=== PATIENT | female | born 1950 | race Hispanic/Latino ===

== ENCOUNTER 2016-08-09 16:41 | Emergency (ER) | payer MEDICARE, MEDICAID ==
[2016-08-09 16:48] VITALS: PULSE 113; TEMP 99; O2SAT 99
[2016-08-09 17:21] VITALS: RESP 20
--- NOTE | 2016-08-09 17:23 | ED PDOC ---
HPI: SOB/CHF/COPD Time Seen by Provider: 08/09/16 16:52 Chief Complaint (Nursing): Shortness Of Breath Chief Complaint (Provider): SOB History Per: Patient History/Exam Limitations: no limitations Additional Complaint(s): patient well known to the ED for COPD presents for wheezing and cough, states weather has worsened her symptoms despite rescue inhaler. (-) chest pain, dizziness, headaches. notes she lost her nebs machine. still taking symbicort Past Medical History Vital Signs: Last Vital Signs Temp 99.0 F 08/09/16 16:46 Pulse 113 H 08/09/16 16:46 Resp 20 08/09/16 17:06 BP 96/59 L 08/09/16 20:28 Pulse Ox 99 08/09/16 20:10 - Medical History PMH: Asthma, COPD, Depression, Diabetes (steriod induced ), HTN, Hypercholesterolemia, Pneumonia Denies: Chronic Kidney Disease - Surgical History Surgical History: Appendectomy, Cholecystectomy - Family History Family History: States: Unknown Family Hx - Immunization History Hx Tetanus Toxoid Vaccination: Yes Hx Influenza Vaccination: Yes (2015) Hx Pneumococcal Vaccination: Yes - Home Medications Home Medications: Ambulatory Orders Medication Instructions Recorded Albuterol 0.083% [Albuterol 0.083% 08/10/16 Inhal Josee (2.5 mg/3 ml) UD] Home Med [Home Med] 08/10/16 predniSONE [predniSONE Tab] 08/10/16 - Allergies Allergies/Adverse Reactions: Allergies Allergy/AdvReac Type Severity Reaction Status Date / Time aspirin Allergy Severe ANAPHYLAXIS Verified 07/26/16 07:07 Penicillins Allergy ANGIOEDEMA Verified 07/26/16 07:07 Sulfa (Sulfonamide Allergy ANGIOEDEMA Verified 07/26/16 07:07 Antibiotics) vancomycin Allergy VOMITING Verified 07/26/16 07:07 Review of Systems ROS Statement: Except As Marked, All Systems Reviewed And Found Negative Constitutional: Negative for: Fever Cardiovascular: Negative for: Chest Pain, Palpitations Respiratory: Positive for: Cough, Shortness of Breath Gastrointestinal: Positive for: Abdominal Pain (hx of gastritis, ran out of protonix ), Diarrhea (2 times, loose stools ). Negative for: Melena, Hematochezia Skin: Negative for: Rash Neurological: Negative for: Headache, Dizziness Physical Exam - Reviewed Nursing Documentation Reviewed: Yes Vital Signs Reviewed: Yes - Physical Exam Appears: Positive for: Well Head Exam: Positive for: NORMAL INSPECTION Skin: Positive for: Normal Color, Warm Eye Exam: Positive for: Normal appearance ENT: Positive for: Normal ENT Inspection Neck: Positive for: Normal, Painless ROM Cardiovascular/Chest: Positive for: Regular Rate, Rhythm Respiratory: Positive for: Wheezing (minimal at bases ). Negative for: Decreased Breath Sounds, Rales, Respiratory Distress Pulses-Dorsalis Pedis (L): 2+ Pulses-Dorsalis Pedis (R): 2+ Gastrointestinal/Abdominal: Positive for: Normal Exam, Soft. Negative for: Tenderness Back: Negative for: L CVA Tenderness, R CVA Tenderness Extremity: Positive for: Normal ROM, Capillary Refill (normal ). Negative for: Tenderness Lymphatic: Positive for: Normal Exam Neurologic/Psych: Positive for: Alert, Oriented, Motor/Sensory Deficits, Gait ( normal ) - Laboratory Results Result Diagrams: 08/09/16 17:00 08/09/16 17:00 - ECG ECG: Positive for: Interpreted By Me, Viewed By Fl ECG Rhythm: Positive for: Normal QRS, Normal ST Segment, Sinus Tachycardia (109) . Negative for: ST/T Changes O2 Sat by Pulse Oximetry: 99 Pulse Ox Interpretation: Normal - Radiology X-Ray: Interpreted by Me X-Ray Interpretation: No Acute Disease Medical Decision Making Medical Decision Makin65 y/o female well known to the ED for COPD with wheezing. SaO2 99% - labs - nebs - xrays - solu-medrol - re-evaluation patient after nebs feels much better, taking full deep breaths labs reviewed with no acute finding. xray viewed IMPRESSION: Poor inspiration with low lung volumes, mild crowded bronchovascular markings and mild bibasilar atelectasis. There also appears to be some very minimal linear atelectasis in the left mid lung field lung with only slight mid/end expiratory wheezing, good air excursion continues to have SaO2 99% ra. stable for discharge will discharge with RX for new nebs machine, given hx will cover with azithromycin Disposition - Clinical Impression Clinical Impression: COPD exacerbation - Patient ED Disposition Is Patient to be Admitted: No Counseled Patient/Family Regarding: Studies Performed, Diagnosis, Need For Followup, Rx Given - Disposition Disposition: Routine/Home Disposition Time: 20:07 Condition: STABLE Additional Instructions: follow up without fail return for chest pain, worsening breathing or any new concerns. Instructions: COPD (Chronic Obstructive Pulmonary Disease) (ED)
[2016-08-09 17:41] LABS: BASO % 0.4 % (0.0-2.0); EOS % 0.6 % (0.0-4.0); HEMATOCRIT 40.1 % (34.0-47.0); LYMPH # 1.2 K/uL (1.0-4.3); LYMPH % 17.5 % (20.0-40.0); MEAN CELL VOLUME 85.6 fl (81.0-99.0); MEAN CORPUSCULAR HEMOGLOBIN 27.6 pg (27.0-31.0); MEAN CORPUSCULAR HGB CONC 32.3 g/dL (33.0-37.0); MEAN PLATELET VOLUME 7.8 fl (7.2-11.7); MONO # 0.6 K/uL (0.0-0.8); MONO % 8.4 % (0.0-10.0); NEUT # 5.1 K/uL (1.8-7.0); NEUT % 73.1 % (50.0-75.0); NRBC % 0.3 % (0.0-0.0); RED CELL DISTRIBUTION WIDTH 16.7 % (11.5-14.5); WHITE BLOOD COUNT 6.9 K/uL (4.8-10.8)
[2016-08-09 17:43] LABS: VENOUS BLOOD GAS BASE EXCESS 5.2 mmol/L (0.0-2.0); VENOUS BLOOD GAS PCO2 31 mmHg (40-60); VENOUS BLOOD PH 7.55 (7.32-7.43)
[2016-08-09 17:49] LABS: ALB/GLOB RATIO 1.2 (1.0-2.1); ALKALINE PHOSPHATASE 67 U/L (38-126); ALT/SGPT 35 U/L (9-52); AST/SGOT 19 U/L (14-36); BILIRUBIN,TOTAL 0.3 mg/dl (0.2-1.3); BLOOD UREA NITROGEN 14 mg/dl (7-17); CALCIUM 9.5 mg/dL (8.4-10.2); CARBON DIOXIDE 25 mmol/L (22-30); CHLORIDE 103 mmol/L (98-107); GFR AFRICAN-AMERICAN > 60; GLUCOSE,RANDOM 157 mg/dL (65-105); MAGNESIUM 1.6 MG/DL (1.6-2.3); POTASSIUM 3.4 MMOL/L (3.6-5.0); SODIUM 137 mmol/l (132-148); TOTAL PROTEIN 7.1 G/DL (6.3-8.2)
[2016-08-09] MEDS ORDERED: Atropine-Diphenoxylate 0.025-2.5 mg Tab PO STA (18:06)
[2016-08-09 18:12] LABS: PARTIAL THROMBOPLASTIN TIME 25.7 SECONDS (23.3-32.5)
[2016-08-09] MEDS: Albuterol-Ipratrop 3 mg / 0.5 (3 ml) UD INH SCH ×3 (18:14→18:44)
[2016-08-09 20:29] VITALS: BP 96/59
--- NOTE | 2016-08-10 07:59 | CARD ---
APPROVED REPORT EKG Measurement Heart [id number] <Conclusion> Sinus tachycardia Otherwise normal ECG
--- NOTE | 2016-08-10 10:05 | RAD ---
HISTORY: cough, wheezing COMPARISON: Comparison chest dated 07/26/2016 TECHNIQUE: Chest PA and lateral FINDINGS: LUNGS: Poor inspiration with low lung volumes, mild crowded bronchovascular markings and mild bibasilar atelectasis. There also appears to be some very minimal linear atelectasis in the left mid lung field PLEURA: No significant pleural effusion identified. No pneumothorax apparent. CARDIOVASCULAR: Normal. OSSEOUS STRUCTURES: No significant abnormalities. VISUALIZED UPPER ABDOMEN: Normal. OTHER FINDINGS: None. IMPRESSION: Poor inspiration with low lung volumes, mild crowded bronchovascular markings and mild bibasilar atelectasis. There also appears to be some very minimal linear atelectasis in the left mid lung field
== END 2016-08-09 20:38 | disposition home or self-care (01) ==
LOC: H.ER 16:41
DX: J44.1 Chronic obstructive pulmonary disease with (acute) exacerbation (principal); R06.2 Wheezing; R05 Cough
CPT/HCPCS: 71020; 80053; 82803; 83605; 83735; 83880; 84484; 85025; 85378; 85610; 85730; 93005; 96374; 99284; J2930

== ENCOUNTER 2016-09-01 12:49 | Inpatient (IN) | payer MEDICARE, MEDICAID ==
[2016-09-01] MEDS ORDERED: Albuterol-Ipratrop 3 mg / 0.5 (3 ml) UD IH STA ×2 (13:09→13:16)
--- NOTE | 2016-09-01 13:14 | ED PDOC ---
HPI: CCC, URI, Sore Throat Time Seen by Provider: 09/01/16 12:59 Chief Complaint (Nursing): Cough, Cold, Congestion History Per: Patient (Cough productive bloody sputum assoc with SOB and left sided cxhest pain since this AM. Denies fever. Denies leg pain or swelling.) Onset/Duration Of Symptoms: Days (1) Current Symptoms Are (Timing): Still Present Associated Symptoms: Cough, Sputum. denies: Fever Severity: Moderate Pain Scale Rating Of: 3 Past Medical History Vital Signs: Last Vital Signs Temp 98.5 F 09/01/16 12:53 Pulse 110 H 09/01/16 12:53 Resp 24 09/01/16 12:53 BP 132/68 09/01/16 12:53 Pulse Ox 88 L 09/01/16 13:14 - Medical History PMH: Anxiety, Asthma, COPD, Depression, Diabetes (steriod induced ), HTN, Hypercholesterolemia, Pneumonia Denies: HIV, Chronic Kidney Disease - Surgical History Surgical History: Appendectomy, Cholecystectomy - Family History Family History: States: Unknown Family Hx - Immunization History Hx Tetanus Toxoid Vaccination: Yes Hx Influenza Vaccination: Yes (2015) Hx Pneumococcal Vaccination: Yes - Home Medications Home Medications: Ambulatory Orders Medication Instructions Recorded Acetylcysteine [Mucomyst 10% 4ML] 3 ml IH RTID vishnu 08/21/16 Albuterol HFA [Ventolin HFA 90 1 puff INH RQ4 PRN #0 inhaler 08/21/16 mcg/actuation (8 g)] Albuterol/Ipratropium [Duoneb 3 3 ml INH RQ4 PRN #0 neb 08/21/16 mg/0.5 mg (3 ml) UD] Aluminum Hydroxide/Magnesium 30 ml PO Q6 PRN #0 udc 08/21/16 [Maalox Plus 30 ml] Cyclobenzaprine [Flexeril] 10 mg PO TID tab 08/21/16 Enoxaparin [Lovenox] 40 mg SC DAILY syr 08/21/16 Escitalopram [Lexapro] 20 mg PO DAILY tab 08/21/16 Fluconazole IV 100mg/50 ml NS 100 mg IV DAILY #5 ml 08/21/16 [Diflucan IV 100 mg/50 ml NS] Insulin Detemir [Levemir] 6 units SC HS vial 08/21/16 Loperamide [Imodium] 4 mg PO QID PRN #0 cap 08/21/16 Morphine [Morphine Extended 30 mg PO Q12 tabsr 08/21/16 Release Tab] Pantoprazole [Protonix EC Tab] 40 mg PO DAILY ect 08/21/16 Phenol 1.4% Topical [Phenaseptic 1 spry MT TID bottle 08/21/16 1.4% Throat Bee] amLODIPine [Norvasc] 10 mg PO DAILY tab 08/21/16 clonazePAM [Klonopin] 0.5 mg PO BID tab 08/21/16 guaiFENesin/Dextromethorphan 5 ml PO Q4 PRN #0 udc 08/21/16 [Robitussin DM] methylPREDNISolone [Solu-MEDROL] 60 mg IV Q8 #15 vial 08/21/16 - Allergies Allergies/Adverse Reactions: Allergies Allergy/AdvReac Type Severity Reaction Status Date / Time aspirin Allergy Severe ANAPHYLAXIS Verified 07/26/16 07:07 Penicillins Allergy ANGIOEDEMA Verified 07/26/16 07:07 Sulfa (Sulfonamide Allergy ANGIOEDEMA Verified 07/26/16 07:07 Antibiotics) vancomycin Allergy VOMITING Verified 07/26/16 07:07 Review of Systems ROS Statement: Except As Marked, All Systems Reviewed And Found Negative Constitutional: Negative for: Fever Cardiovascular: Positive for: Chest Pain Respiratory: Positive for: Cough, Shortness of Breath, Hemoptysis Physical Exam - Reviewed Nursing Documentation Reviewed: Yes Vital Signs Reviewed: Yes - Physical Exam Appears: Positive for: Non-toxic, No Acute Distress Head Exam: Positive for: ATRAUMATIC, NORMAL INSPECTION, NORMOCEPHALIC Skin: Positive for: Normal Color, Warm, DRY Eye Exam: Positive for: EOMI, Normal appearance, PERRL ENT: Positive for: Normal ENT Inspection Neck: Positive for: Normal, Painless ROM Cardiovascular/Chest: Positive for: Regular Rate, Rhythm Respiratory: Positive for: Rhonchi, Wheezing. Negative for: Respiratory Distress Gastrointestinal/Abdominal: Positive for: Normal Exam, Bowel Sounds, Soft Back: Positive for: Normal Inspection Extremity: Positive for: Normal ROM. Negative for: Calf Tenderness, Swelling Neurologic/Psych: Positive for: Alert, Oriented - Laboratory Results Result Diagrams: 09/01/16 13:15 09/01/16 13:15 - ECG O2 Sat by Pulse Oximetry: 88 Disposition - Clinical Impression Clinical Impression: Pneumonia, Hemoptysis - Patient ED Disposition Is Patient to be Admitted: Yes - Disposition Disposition Time: 14:54 Condition: GUARDED - Pt Status Changed To: Hospital Disposition Of: Inpatient - Admit Certification Admit to Inpatient:: After my assessment, the patient will require hospitalization for at least two midnights. This is because of the severity of symptoms shown, intensity of services needed, and/or the medical risk in this patient being treated as an outpatient. - POA Present On Arrival: None
[2016-09-01] MEDS ORDERED: Sodium Chloride 0.9% 100 ML ONE (13:24)
[2016-09-01] MEDS ORDERED: Iodixanol 320 MG/ML 100 ML BOTTLE IV ONE (13:24)
[2016-09-01 13:31] LABS: BASO # 0.2 K/uL (0.0-0.2); BASO % 0.7 % (0.0-2.0); HEMATOCRIT 31.1 % (34.0-47.0); LYMPH # 0.3 K/uL (1.0-4.3); LYMPH % 1.1 % (20.0-40.0); MEAN CELL VOLUME 83.3 fl (81.0-99.0); MEAN CORPUSCULAR HEMOGLOBIN 28.1 pg (27.0-31.0); MEAN CORPUSCULAR HGB CONC 33.7 g/dL (33.0-37.0); MEAN PLATELET VOLUME 6.9 fl (7.2-11.7); MONO # 0.3 K/uL (0.0-0.8); MONO % 1.3 % (0.0-10.0); NEUT # 22.8 K/uL (1.8-7.0); NEUT % 96.9 % (50.0-75.0); PLATELET COUNT 287 K/uL (130-400); WHITE BLOOD COUNT 23.6 K/uL (4.8-10.8)
[2016-09-01 13:38] LABS: BLOOD UREA NITROGEN 31 mg/dl (7-17); GFR AFRICAN-AMERICAN > 60; GLUCOSE,RANDOM 299 mg/dL (65-105)
[2016-09-01 13:39] LABS: ALB/GLOB RATIO 0.6 (1.0-2.1); ALKALINE PHOSPHATASE 127 U/L (38-126); ALT/SGPT 36 U/L (9-52); AST/SGOT 27 U/L (14-36); BILIRUBIN,TOTAL 0.5 mg/dl (0.2-1.3); CALCIUM 9.3 mg/dL (8.4-10.2); CARBON DIOXIDE 24 mmol/L (22-30); CHLORIDE 97 mmol/L (98-107); POTASSIUM 4.7 MMOL/L (3.6-5.0); SODIUM 135 mmol/l (132-148); TOTAL PROTEIN 7.3 G/DL (6.3-8.2)
[2016-09-01] MEDS ORDERED: Albuterol-Ipratrop 3 mg / 0.5 (3 ml) UD ONE (14:03)
--- NOTE | 2016-09-01 14:28 | CT ---
PROCEDURE: CT Chest with contrast (Pulmonary Angiogram) HISTORY: Hemoptysis. COMPARISON: None available. TECHNIQUE: Axial computed tomography images were obtained of the chest in the pulmonary arterial phase of enhancement. Coronal and sagittal reformatted images were created and reviewed. Maximum intensity projection (MIP) reconstructed images in the following planes: Axial projection only. Intravenous contrast dose: 95 cc Omnipaque 300 Mean Hounsfield unit values in the main pulmonary artery: 392.07 Radiation dose: Total exam DLP = 356.06 mGy-cm. This CT exam was performed using one or more of the following dose reduction techniques: Automated exposure control, adjustment of the mA and/or kV according to patient size, and/or use of iterative reconstruction technique. FINDINGS: PULMONARY ARTERIES: Unremarkable. No pulmonary embolism. AORTA: No acute findings. No thoracic aortic aneurysm. LUNGS: Innumerable bb pulmonary masses, nodules. Many of these, in particular those in the lower lobes are cavitary. Differential considerations include cavitary metastatic disease. Septic emboli should also be considered in the appropriate clinical setting. Infectious/inflammatory etiologies in the immunocompromised individuals would be a less likely consideration. PLEURAL SPACES: Trace partially loculated pleural effusions. HEART: No radiographic findings to suggest acute or significant cardiovascular disease. LYMPH NODES: Mediastinal and subcarinal adenopathy. BONES, CHEST WALL: Unremarkable. No fracture or destructive lesion OTHER FINDINGS: Esophageal thickening in etiology of which is uncertain. IMPRESSION: Innumerable pulmonary nodules and masses the preponderance of which in the lower lobes are both large, complex and cavitary. Neoplastic, infectious/ inflammatory etiologies are most likely. Trace loculated pleural effusions the left pleural space. Negative study for acute pulmonary embolism. COMMUNICATION OF RESULTSFindings discussed with at the time of this interpretation.Study completed . Verbal results provided . Results available in the electronic medical record . I discussed findings directly with the attending in the emergency department at 14:24. September 01, 2016.
[2016-09-01] MEDS ORDERED: GENTAMICIN IVPB STA (14:34)
[2016-09-01] MEDS ORDERED: STERILE WATER FOR INJ IVPB STA (14:34)
[2016-09-01] MEDS ORDERED: Ciprofloxacin 400mg/200ml D5W 200 ML IVPB STA (14:34)
[2016-09-01] MEDS ORDERED: NS IVPB SCH (14:45)
[2016-09-01] MEDS ORDERED: GENTAMICIN IVPB SCH (14:45)
[2016-09-01 14:47] LABS: NEUTROPHIL 94 % (42-75); TOTAL CELLS COUNTED 100
[2016-09-01 14:51] LABS: GIANT PLATELETS PRESENT; LARGE PLATELETS PRESENT
[2016-09-01 14:57] LABS: ABG ALLEN TEST YES; ARTERIAL BLOOD GAS HCO3 27.5 mmol/L (21-28); ARTERIAL BLOOD GAS PO2 65 mm/Hg (80-100)
--- NOTE | 2016-09-01 14:59 | CP.PCM.CON ---
History of Present Illness - History of Present Illness History of Present Illness: Evaluated this pt in ER for possible ICU admission. Pt see in ER, labs and meds reviewed, CT chest report reviewed, CXR film reviewed. Pt is current lying comfortably in room 13 with O2sat 85% on 2 lit, no tachypne , BP 107/67. Pt was brought to ER with cough , congestion and Chest pain. She has h/o COPD, she was given nebulizor in ER, CTA was done to r/o PE, no evidence of PE but she has multiple pulm nodule , with mets being one of the possibility. She has leukocytosis of 23 k but electrolytes, including renal function are WNL, except high serum bicarb 31, probably representing COPD, and chronic resp acidosis. Review of Systems - Constitutional Constitutional: As Per HPI - EENT Eyes: As Per HPI Ears: As Per HPI Nose/Mouth/Throat: As Per HPI - Cardiovascular Cardiovascular: As Per HPI - Respiratory Respiratory: Cough, Wheezing - Gastrointestinal Gastrointestinal: As Per HPI Past Patient History - Infectious Disease Hx of Infectious Diseases: None - Past Medical History & Family History Past Medical History?: Yes - Past Social History Smoking Status: Current Some Days Smoker - CARDIAC Hx Hypercholesterolemia: Yes Hx Hypertension: Yes - PULMONARY Hx Asthma: Yes Hx Chronic Obstructive Pulmonary Disease (COPD): Yes Hx Pneumonia: Yes - NEUROLOGICAL Hx Neurological Disorder: No - HEENT Hx HEENT Problems: Yes Other/Comment: eyeglasses - RENAL Hx Chronic Kidney Disease: No - ENDOCRINE/METABOLIC Hx Endocrine Disorders: No Hx Diabetes Mellitus Type 2: No (denies diabetes hx) - HEMATOLOGICAL/ONCOLOGICAL Hx Human Immunodeficiency Virus (HIV): No - INTEGUMENTARY Hx Dermatological Problems: No - MUSCULOSKELETAL/RHEUMATOLOGICAL Hx Musculoskeletal Disorders: No Hx Falls: No - GASTROINTESTINAL Hx Gastrointestinal Disorders: Yes Hx Diarrhea: Yes Other/Comment: peritonitis - GENITOURINARY/GYNECOLOGICAL Hx Genitourinary Disorders: No - PSYCHIATRIC Hx Anxiety: Yes Hx Depression: Yes - SURGICAL HISTORY Hx Appendectomy: Yes Hx Cholecystectomy: Yes - ANESTHESIA Hx Anesthesia: Yes Hx Anesthesia Reactions: No Hx Malignant Hyperthermia: No Meds Allergies/Adverse Reactions: Allergies Allergy/AdvReac Type Severity Reaction Status Date / Time aspirin Allergy Severe ANAPHYLAXIS Verified 07/26/16 07:07 Penicillins Allergy ANGIOEDEMA Verified 07/26/16 07:07 Sulfa (Sulfonamide Allergy ANGIOEDEMA Verified 07/26/16 07:07 Antibiotics) vancomycin Allergy VOMITING Verified 07/26/16 07:07 - Medications Medications: Current Medications Ciprofloxacin (Cipro 400mg/200ml Dsw) 200 mls @ 200 mls/hr IVPB STAT STA Stop: 09/01/16 15:33 Clindamycin Phosphate 600 mg/ (Sodium Chloride) 54 mls @ 54 mls/hr IVPB ONCE ONE Stop: 09/01/16 15:33 Gentamicin Sulfate/Sodium Chloride (Gentamicin 60mg/50ml Ns) 50 mls @ 50 mls/ hr IVPB STAT DINO Physical Exam - Constitutional Appears: Non-toxic - Eye Exam Pupil Exam: PERRL - Respiratory Exam Respiratory Exam: Rhonchi, Wheezes - Cardiovascular Exam Cardiovascular Exam: REGULAR RHYTHM Results - Vital Signs Recent Vital Signs: Last Vital Signs Temp 98.5 F 09/01/16 12:53 Pulse 110 H 09/01/16 12:53 Resp 24 09/01/16 12:53 BP 132/68 09/01/16 12:53 Pulse Ox 88 L 09/01/16 14:55 - Labs Result Diagrams: 09/01/16 13:15 09/01/16 13:15 Labs: Laboratory Results - last 24 hr 09/01/16 13:15 WBC 23.6 H RBC 3.74 L Hgb 10.5 L Hct 31.1 L MCV 83.3 D MCH 28.1 MCHC 33.7 RDW 17.0 H Plt Count 287 MPV 6.9 L Neut % (Auto) 96.9 H Lymph % (Auto) 1.1 L [place] % (Auto) 1.3 Eos % (Auto) 0.0 Baso % (Auto) 0.7 Neut # 22.8 H Lymph # 0.3 L [place] # 0.3 Eos # 0.0 Baso # 0.2 Neutrophils % (Manual) 94 H Band Neutrophils % 1 Lymphocytes % (Manual) 4 L Monocytes % (Manual) 1 Hypersegmented Polys Present Toxic Granulation Present Platelet Estimate Normal Large Platelets Present Giant Platelets Present Hypochromasia (manual) Slight Anisocytosis (manual) Slight Sodium 135 Potassium 4.7 Chloride 97 L Carbon Dioxide 24 Anion Gap 19 BUN 31 H Creatinine 0.6 L Est GFR ( Amer) > 60 Est GFR (Non-Af Amer) > 60 Random Glucose 299 H Calcium 9.3 Total Bilirubin 0.5 AST 27 ALT 36 Alkaline Phosphatase 127 H D Total Protein 7.3 Albumin 2.8 L Globulin 4.5 H Albumin/Globulin Ratio 0.6 L Assessment & Plan - Assessment and Plan (Free Text) Assessment: Pt has COPD exacerbation, with pulm nodules, malignancy is a possibility, also has DM, HTN. She is hemodynamically stable and O2 saturation during my exam was 93-95% on 2 L NC and Bp is stable, . She is admitted but doesn;t require ICU monitoring at this point , can be admitted to telemetry floor. If her status changed, can be reevaluated for ICU monitoring but doesn;t require at her current clinical condition.
[2016-09-01] MEDS ORDERED: Ciprofloxacin 400mg/200ml D5W 200 ML IVPB ONE (15:25)
--- NOTE | 2016-09-01 15:32 | RAD ---
HISTORY: Cough. COMPARISON: September 01, 2016. CT pulmonary angiogram. 08/18/2016 single-view chest FINDINGS: LUNGS: Multiple cavitary masses bilaterally left greater than right. These are acute findings and therefore metastatic disease is not likely. Accordingly most likely etiology septic emboli/ infectious etiology. PLEURA: Focal pleural thickening left roxana thorax. CARDIOVASCULAR: No radiographic findings to suggest acute or significant cardiovascular disease. OSSEOUS STRUCTURES: No significant abnormalities. VISUALIZED UPPER ABDOMEN: Normal. OTHER FINDINGS: None. IMPRESSION: Multiple, confluent masses bilaterally including several cavitary masses. These represent new/ acute findings compared to the prior chest x-ray consistent with infectious/ inflammatory etiologies.
--- NOTE | 2016-09-01 15:36 | CP.PCM.HP ---
History of Present Illness - History of Present Illness History of Present Illness: pt admitted for cough, congestion, lethargy. cxr/ct chest demonstrated masses in chest unkn if malignancy vs infectious vs unkn etiology. pt is noncompliant w / thearpies in past and w/ f/u. pt is + smoker althoguh denies currently. bw and imaing noted. all consults aware. pt opnes eyes to answer questions but is lethargic Present on Admission - Present on Admission Any Indicators Present on Admission: No Review of Systems - Constitutional Constitutional: As Per HPI, Fatigue, Lethargy - Respiratory Respiratory: As Per HPI, Cough, Dyspnea on Exertion, Chest Congestion, Excessive Mucous Production Past Patient History - Infectious Disease Hx of Infectious Diseases: None - Past Medical History & Family History Past Medical History?: Yes - Past Social History Smoking Status: Current Some Days Smoker - CARDIAC Hx Hypercholesterolemia: Yes Hx Hypertension: Yes - PULMONARY Hx Asthma: Yes Hx Chronic Obstructive Pulmonary Disease (COPD): Yes Hx Pneumonia: Yes - NEUROLOGICAL Hx Neurological Disorder: No - HEENT Hx HEENT Problems: Yes Other/Comment: eyeglasses - RENAL Hx Chronic Kidney Disease: No - ENDOCRINE/METABOLIC Hx Endocrine Disorders: No Hx Diabetes Mellitus Type 2: No (denies diabetes hx) - HEMATOLOGICAL/ONCOLOGICAL Hx Human Immunodeficiency Virus (HIV): No - INTEGUMENTARY Hx Dermatological Problems: No - MUSCULOSKELETAL/RHEUMATOLOGICAL Hx Musculoskeletal Disorders: No Hx Falls: No - GASTROINTESTINAL Hx Gastrointestinal Disorders: Yes Hx Diarrhea: Yes Other/Comment: peritonitis - GENITOURINARY/GYNECOLOGICAL Hx Genitourinary Disorders: No - PSYCHIATRIC Hx Anxiety: Yes Hx Depression: Yes - SURGICAL HISTORY Hx Appendectomy: Yes Hx Cholecystectomy: Yes - ANESTHESIA Hx Anesthesia: Yes Hx Anesthesia Reactions: No Hx Malignant Hyperthermia: No Meds Allergies/Adverse Reactions: Allergies Allergy/AdvReac Type Severity Reaction Status Date / Time aspirin Allergy Severe ANAPHYLAXIS Verified 07/26/16 07:07 Penicillins Allergy ANGIOEDEMA Verified 07/26/16 07:07 Sulfa (Sulfonamide Allergy ANGIOEDEMA Verified 07/26/16 07:07 Antibiotics) vancomycin Allergy VOMITING Verified 07/26/16 07:07 Physical Exam - Constitutional Appears: Toxic, No Acute Distress, Chronically Ill - Head Exam Head Exam: ATRAUMATIC, NORMAL INSPECTION, NORMOCEPHALIC - Eye Exam Eye Exam: EOMI, Normal appearance, PERRL Pupil Exam: NORMAL ACCOMODATION, PERRL - ENT Exam ENT Exam: Mucous Membranes Moist, Normal Exam - Neck Exam Neck exam: Positive for: Normal Inspection - Respiratory Exam Respiratory Exam: Rhonchi, NORMAL BREATHING PATTERN - Cardiovascular Exam Cardiovascular Exam: REGULAR RHYTHM, RRR, +S1, +S2 - GI/Abdominal Exam GI & Abdominal Exam: Normal Bowel Sounds, Soft. absent: Tenderness - Extremities Exam Extremities exam: Positive for: full ROM, normal capillary refill, normal inspection, pedal pulses present - Back Exam Back exam: FULL ROM, NORMAL INSPECTION - Neurological Exam Neurological exam: Alert, CN II-XII Intact, Normal Gait, Oriented x3, Reflexes Normal - Psychiatric Exam Psychiatric exam: Normal Affect, Normal Mood - Skin Skin Exam: Dry, Intact, Normal Color, Warm Results - Vital Signs Recent Vital Signs: Last Vital Signs Temp 98.5 F 09/01/16 12:53 Pulse 110 H 09/01/16 12:53 Resp 24 09/01/16 12:53 BP 132/68 09/01/16 12:53 Pulse Ox 88 L 09/01/16 14:55 - Labs Result Diagrams: 09/01/16 13:15 09/01/16 13:15 Labs: Laboratory Results - last 24 hr 09/01/16 14:53 pCO2 47 H pO2 65 L HCO3 27.5 ABG pH 7.40 ABG Total CO2 30.5 H ABG O2 Saturation 97.0 ABG Base Excess 3.5 H Rasha[place] Test Yes ABG Potassium 4.5 A-a O2 Difference 76.0 Sodium 132.0 Chloride 101.0 Glucose 296 H Lactate 1.6 FiO2 28.0 Arterial Blood Potassium 4.5 Assessment & Plan (1) Hemoptysis Assessment and Plan: zyvox, imaging noted, anbx in er given id, pulm, heme/onc consults tele admission repeat cxr ?? bx Status: Acute (2) Type 2 diabetes mellitus with hyperglycemia Assessment and Plan: levemir fsbg diet Status: Acute (3) DVT prophylaxis Assessment and Plan: scd and ae hose hold anticoag r/t hemoptysis Status: Acute Decision To Admit - Pt Status Changed To: Hospital Disposition Of: Inpatient - Admit Certification Admit to Inpatient:: After my assessment, the patient will require hospitalization for at least two midnights. This is because of the severity of symptoms shown, intensity of services needed, and/or the medical risk in this patient being treated as an outpatient. - . Bed Request Type: Telemetry Admitting Physician: Beverly Arenas
[2016-09-01] MEDS ORDERED: Clindamycin 600 MG in Sodium Chloride 0.9% 100 ML IVPB ONE (16:30)
[2016-09-01] MEDS ORDERED: Promethazine DM 12.5 mg-30 mg/10 ml Syrup PO PRN (17:16)
[2016-09-01] MEDS ORDERED: Sodium Chloride 3% for Inhalation 4 ML VIAL.NEB IH PRN (17:31)
[2016-09-01] MEDS ORDERED: Tuberculin 5 Units/0.1 ml Inj ID ONE (18:15)
[2016-09-01] MEDS ORDERED: Albuterol HFA 90 mcg/actuation (8 g) INH PRN (18:59)
[2016-09-01] MEDS ORDERED: Alum-Mag Hydrox-Simethicone Susp (30 mL) PO PRN (18:59)
[2016-09-01] MEDS ORDERED: Acetylcysteine 10% 4 ML IH SCH (20:00)
[2016-09-01] MEDS: Linezolid 600 mg in D5W 300 ml 300 ML IVPB SCH (21:44)
[2016-09-01] MEDS: Insulin Detemir 100 Units/ml Inj SC SCH (21:45)
[2016-09-02] MEDS: Albuterol-Ipratrop 3 mg / 0.5 (3 ml) UD INH PRN (01:24)
[2016-09-02] MEDS: Oxycodone/Acetaminophen 5/325 mg Tab PO PRN ×4 (01:44→16:20)
[2016-09-02 07:27] LABS: HEMATOCRIT 32.9 % (34.0-47.0); LYMPH # 0.4 K/uL (1.0-4.3); LYMPH % 2.4 % (20.0-40.0); MEAN CELL VOLUME 84.6 fl (81.0-99.0); MEAN CORPUSCULAR HGB CONC 31.8 g/dL (33.0-37.0); MEAN PLATELET VOLUME 6.9 fl (7.2-11.7); MONO # 0.3 K/uL (0.0-0.8); MONO % 1.9 % (0.0-10.0); NEUT # 16.5 K/uL (1.8-7.0); NEUT % 95.7 % (50.0-75.0); RED CELL DISTRIBUTION WIDTH 17.3 % (11.5-14.5); WHITE BLOOD COUNT 17.3 K/uL (4.8-10.8)
[2016-09-02 07:40] LABS: ALB/GLOB RATIO 0.6 (1.0-2.1); ALKALINE PHOSPHATASE 122 U/L (38-126); ALT/SGPT 27 U/L (9-52); AST/SGOT 16 U/L (14-36); BILIRUBIN,TOTAL 0.4 mg/dl (0.2-1.3); BLOOD UREA NITROGEN 25 mg/dl (7-17); CALCIUM 9.6 mg/dL (8.4-10.2); CARBON DIOXIDE 27 mmol/L (22-30); CHLORIDE 99 mmol/L (98-107); GFR AFRICAN-AMERICAN > 60; GLUCOSE,RANDOM 212 mg/dL (65-105); POTASSIUM 4.8 MMOL/L (3.6-5.0); SODIUM 141 mmol/l (132-148); TOTAL PROTEIN 7.3 G/DL (6.3-8.2)
--- NOTE | 2016-09-02 08:18 | CP.PCM.PN ---
Subjective - Date & Time of Evaluation Date of Evaluation: 09/02/16 Time of Evaluation: 08:18 - Subjective Subjective: pt overall looks better this am. more color to face and more alert. still w/ cougha nd dark sputum. no f/c, n/v/d. wbc now 17. consults appriciated. cxr in am. Objective - Vital Signs/Intake and Output Vital Signs (last 24 hours): Temp Pulse Resp BP Pulse Ox 98.1 F 91 H 20 123/79 90 L 09/02/16 04:47 09/02/16 04:47 09/02/16 04:47 09/02/16 04:47 09/02/16 04:47 - Medications Medications: Current Medications Al Hydrox/Mg Hydrox/Simethicone (Maalox Plus 30 Ml) 30 ml PO Q6 PRN PRN Reason: Indigestion / Heartburn Albuterol (Ventolin Hfa 90 Mcg/Actuation (8 G)) 1 puff INH RQ4 PRN PRN Reason: Shortness of Breath Albuterol/Ipratropium (Duoneb 3 Mg/0.5 Mg (3 Ml) Ud) 3 ml INH RQ4 PRN PRN Reason: Shortness of Breath Last Admin: 09/02/16 01:24 Dose: 3 ml Amlodipine Besylate (Norvasc) 10 mg PO DAILY [facility] Escitalopram Oxalate (Lexapro) 20 mg PO DAILY [facility] Gentamicin Sulfate/Sodium Chloride (Gentamicin 60mg/50ml Ns) 50 mls @ 50 mls/ hr IVPB STAT [facility] Linezolid (Zyvox 600mg/300ml D5w) 300 mls @ 300 mls/hr IVPB Q12 [facility] Last Admin: 09/01/16 21:44 Dose: 300 mls/hr Insulin Detemir (Levemir) 6 units SC HS [facility] Last Admin: 09/01/16 21:45 Dose: 6 units Insulin Human Regular (Humulin R) 0 units SC ACHS D[facility] PRN Reason: Protocol Oxycodone/Acetaminophen (Percocet 5/325 Mg Tab) 1 tab PO Q4 PRN PRN Reason: Pain, moderate (4-7) Stop: 09/04/16 17:17 Last Admin: 09/02/16 06:16 Dose: 1 tab Pantoprazole Sodium (Protonix Ec Tab) 40 mg PO DAILY [facility] Phenol/Menthol (Phenaseptic 1.4% Throat [place]) 1 spry MT TID DINO Promethazine HCl/Dextromethorphan (Phenergan Dm Syrup) 5 ml PO Q6 PRN PRN Reason: Cough - Labs Labs: 09/02/16 05:30 09/02/16 05:30 PT 10.3 SECONDS (9.6-11.2) 09/01/16 13:15 INR 0.99 (0.92-1.08) 09/01/16 13:15 - Constitutional Appears: Well, Non-toxic, No Acute Distress - Head Exam Head Exam: ATRAUMATIC, NORMAL INSPECTION, NORMOCEPHALIC - Eye Exam Eye Exam: EOMI, Normal appearance, PERRL Pupil Exam: NORMAL ACCOMODATION, PERRL - ENT Exam ENT Exam: Mucous Membranes Moist, Normal Exam - Neck Exam Neck Exam: Full ROM, Normal Inspection. absent: Lymphadenopathy - Respiratory Exam Respiratory Exam: Wheezes, NORMAL BREATHING PATTERN - Cardiovascular Exam Cardiovascular Exam: REGULAR RHYTHM, RRR, +S1, +S2. absent: Murmur - GI/Abdominal Exam GI & Abdominal Exam: Soft, Normal Bowel Sounds. absent: Tenderness - Extremities Exam Extremities Exam: Full ROM, Normal Capillary Refill, Normal Inspection. absent : Joint Swelling, Pedal Edema - Back Exam Back Exam: NORMAL INSPECTION - Neurological Exam Neurological Exam: Alert, Awake, CN II-XII Intact, Normal Gait, Oriented x3 - Psychiatric Exam Psychiatric exam: Normal Affect, Normal Mood - Skin Skin Exam: Dry, Intact, Normal Color, Warm Assessment and Plan (1) Hemoptysis Assessment & Plan: unkn etiology repeat cxr in am, id, pulm, heme/onc cosult, zyvox albuterol, duonebs, phenergen Status: Acute (2) Type 2 diabetes mellitus with hyperglycemia Assessment & Plan: riss, levemir, fsbg, diet Status: Acute (3) DVT prophylaxis Assessment & Plan: scd nad aehose ambulation, hold anticoag for possible bx Status: Acute
[2016-09-02] MEDS: Insulin Regular 100 units/ml SC SCH ×4 (08:30→22:21)
[2016-09-02] MEDS: Pantoprazole 40 mg EC Tab PO SCH (08:38)
[2016-09-02] MEDS: Phenol 1.4% Throat Spray MT SCH ×3 (08:38→16:10)
[2016-09-02] MEDS: Linezolid 600 mg in D5W 300 ml 300 ML IVPB SCH ×2 (08:39→21:53)
[2016-09-02] MEDS: Promethazine DM 6.25 mg-15 mg/5 ml Syrup PO PRN (08:58)
--- NOTE | 2016-09-02 12:18 | CON ---
DATE: 09/02/2016 The patient is a 65-year-old female who is well-known to me from prior admission. She was admitted [facility] and referred for pulmonary evaluation because of cough productive of blood-tinged sput um. She is not exactly sure if she was coughing up the blood or vomiting blood, but she also indicat es that she had some chest pain - left-sided, and had abdominal pain radiating to the back. PAST MEDICAL HISTORY: She has a past medical history of anxiety disorder, chronic obstructive pulmon jaylin disease, diabetes mellitus, hypertension, hyperlipidemia, and recurrent pneumonia. She was recen tly discharged from [facility] after therapy for acute exacerbation of chronic obstructive pulmonary disease and pneumonia. FAMILY HISTORY: Noncontributory. SOCIAL HISTORY: She continues to smoke cigarettes. Denies alcohol use. REVIEW OF SYSTEMS: Remarkable for shortness of breath, exercise intolerance. PHYSICAL EXAMINATION: GENERAL: The patient is alert and oriented, still short of breath on mild exertion. VITAL SIGNS: Blood pressure 113/69, pulse of 98, respiratory rate 20 per minute, O2 sat 92% on 2 lit ers nasal cannula. SKIN: Shows fair turgor. HEENT: Pupils are equal and react to light and accommodation. Mouth shows fair hygiene. NECK: JVP flat. LUNGS: Shows poor aeration with audible rales and wheezing. HEART: S1, S2. ABDOMEN: Soft with midepigastric tenderness. EXTREMITIES: Show no edema or cyanosis. CENTRAL NERVOUS SYSTEM: Grossly intact. LABORATORY DATA: Remarkable for EKG that shows sinus tachycardia, otherwise unremarkable. CT scan of the chest is remarkable for multiple pulmonary nodules and masses, mainly the lower lobes, both large and complex cavitary. Neoplastic or infectious etiologies are most likely. Trace locula susie pleural effusions, left pleural space, negative for pulmonary emboli. When compared to older x-r ays from last admission, this appears more pronounced. WBC 23.6, hemoglobin 10.5, platelet count of 287,000. Sodium 135, potassium 4.7, BUN of 31, creatini ne 0.6, glucose 299. AST 27, ALT 36. IMPRESSION: 1. This clinical condition in a patient who was recently discharged from the hospital and has hemopt ysis/hematemesis at present is more compatible with infectious etiology since when compared to past x-rays, this appears new (history of trace cavitary densities on the x-rays). This is possibly bev tible with infectious etiology. One strongly doubts malignancy, but the plan would be to monitor [facility] st x-rays and CAT scans until symptoms improve and findings start to resolve. 2. Acute exacerbation of chronic obstructive pulmonary disease, ____, noncompliance to medications. PLAN: Continue therapy as ordered, IV antibiotics, aerosolized bronchodilators, and IV steroids. Th e patient may need a gastroenterology evaluation if abdominal pain continues. We will continue to fo llow with you. Further therapy will depend on findings. Corey Davalos MD cc: [id number] TT: 09/02/2016 12:17:14 Confirmation # [id number] Dictation # [id number]
--- NOTE | 2016-09-02 15:58 | CP.PCM.CON ---
History of Present Illness - History of Present Illness History of Present Illness: 65 year old female who currently resides in a fdc with a past medical history of tobacco abuse, COPD, admitted with hemoptysis, found to have b/l pulmonary masses. The patient notes to coughing up blood clots for about 2 weeks time. Her coughing is associated with rib pain and subjective fevers. She denies nausea and vomiting. She reports to lots of sick people at the fdc. Past medical history: tobacco abuse, COPD Past surgical history: Pasrtial hysterectomy, bladder repair with mesh Family history: Mother had colon cancer Social history: Smokes 3-4 cigs daily x 35 years, denies alcohol, and illicit drug use. Allergies: Aspirin, PCN, sulfa, vancomycin Review of systems: All remaining review of systems including HEENT, cardiovascular, respiratory, gastrointestinal, genitourinary, musculoskeletal, dermatologic, neurologic, and psychiatric are negative unless mentioned in the HPI. Past Patient History - Infectious Disease Hx of Infectious Diseases: None - Past Medical History & Family History Past Medical History?: Yes - Past Social History Smoking Status: Current Some Days Smoker - CARDIAC Hx Hypercholesterolemia: Yes Hx Hypertension: Yes - PULMONARY Hx Asthma: Yes Hx Chronic Obstructive Pulmonary Disease (COPD): Yes Hx Pneumonia: Yes - NEUROLOGICAL Hx Neurological Disorder: No - HEENT Hx HEENT Problems: Yes Other/Comment: eyeglasses - RENAL Hx Chronic Kidney Disease: No - ENDOCRINE/METABOLIC Hx Endocrine Disorders: No Hx Diabetes Mellitus Type 2: No (denies diabetes hx) - HEMATOLOGICAL/ONCOLOGICAL Hx Human Immunodeficiency Virus (HIV): No - INTEGUMENTARY Hx Dermatological Problems: No - MUSCULOSKELETAL/RHEUMATOLOGICAL Hx Musculoskeletal Disorders: No Hx Falls: No - GASTROINTESTINAL Hx Gastrointestinal Disorders: Yes Hx Diarrhea: Yes Other/Comment: peritonitis - GENITOURINARY/GYNECOLOGICAL Hx Genitourinary Disorders: No - PSYCHIATRIC Hx Anxiety: Yes Hx Depression: Yes - SURGICAL HISTORY Hx Appendectomy: Yes Hx Cholecystectomy: Yes - ANESTHESIA Hx Anesthesia: Yes Hx Anesthesia Reactions: No Hx Malignant Hyperthermia: No Meds Allergies/Adverse Reactions: Allergies Allergy/AdvReac Type Severity Reaction Status Date / Time aspirin Allergy Severe ANAPHYLAXIS Verified 07/26/16 07:07 Penicillins Allergy ANGIOEDEMA Verified 07/26/16 07:07 Sulfa (Sulfonamide Allergy ANGIOEDEMA Verified 07/26/16 07:07 Antibiotics) vancomycin Allergy VOMITING Verified 07/26/16 07:07 - Medications Medications: Current Medications Al Hydrox/Mg Hydrox/Simethicone (Maalox Plus 30 Ml) 30 ml PO Q6 PRN PRN Reason: Indigestion / Heartburn Albuterol (Ventolin Hfa 90 Mcg/Actuation (8 G)) 1 puff INH RQ4 PRN PRN Reason: Shortness of Breath Albuterol/Ipratropium (Duoneb 3 Mg/0.5 Mg (3 Ml) Ud) 3 ml INH RQ4 PRN PRN Reason: Shortness of Breath Last Admin: 09/02/16 01:24 Dose: 3 ml Amlodipine Besylate (Norvasc) 10 mg PO DAILY [facility] Last Admin: 09/02/16 08:37 Dose: 10 mg Escitalopram Oxalate (Lexapro) 20 mg PO DAILY [facility] Last Admin: 09/02/16 10:00 Dose: 20 mg Linezolid (Zyvox 600mg/300ml D5w) 300 mls @ 300 mls/hr IVPB Q12 [facility] Last Admin: 09/02/16 08:39 Dose: 300 mls/hr Insulin Detemir (Levemir) 6 units SC HS [facility] Last Admin: 09/01/16 21:45 Dose: 6 units Insulin Human Regular (Humulin R) 0 units SC ACHS [facility] PRN Reason: Protocol Last Admin: 09/02/16 12:30 Dose: 8 unit Oxycodone/Acetaminophen (Percocet 5/325 Mg Tab) 1 tab PO Q4 PRN PRN Reason: Pain, moderate (4-7) Stop: 09/04/16 17:17 Last Admin: 09/02/16 10:28 Dose: 1 tab Pantoprazole Sodium (Protonix Ec Tab) 40 mg PO DAILY [facility] Last Admin: 09/02/16 08:38 Dose: 40 mg Phenol/Menthol (Phenaseptic 1.4% Throat [place]) 1 spry MT TID [facility] Last Admin: 09/02/16 12:43 Dose: 1 spr Promethazine HCl/Dextromethorphan (Phenergan Dm Syrup) 5 ml PO Q6 PRN PRN Reason: Cough Last Admin: 09/02/16 08:58 Dose: 5 ml Physical Exam - Head Exam Head Exam: ATRAUMATIC - Eye Exam Eye Exam: Normal appearance - ENT Exam ENT Exam: Mucous Membranes Dry - Respiratory Exam Respiratory Exam: Decreased Breath Sounds - Cardiovascular Exam Cardiovascular Exam: +S1, +S2 - GI/Abdominal Exam GI & Abdominal Exam: Normal Bowel Sounds - Extremities Exam Extremities exam: Positive for: normal inspection - Neurological Exam Neurological exam: Oriented x3 - Psychiatric Exam Psychiatric exam: Normal Affect, Normal Mood - Skin Skin Exam: Warm Results - Vital Signs Recent Vital Signs: Last Vital Signs Temp 99.1 F 09/02/16 15:42 Pulse 105 H 09/02/16 15:42 Resp 20 09/02/16 15:42 BP 121/66 09/02/16 15:42 Pulse Ox 94 L 09/02/16 15:42 - Labs Result Diagrams: 09/02/16 05:30 09/02/16 05:30 Labs: Laboratory Results - last 24 hr 09/01/16 09/01/16 09/02/16 15:50 21:32 05:30 WBC 17.3 H RBC 3.89 Hgb 10.5 L Hct 32.9 L MCV 84.6 MCH 27.0 MCHC 31.8 L RDW 17.3 H Plt Count 292 MPV 6.9 L Neut % (Auto) 95.7 H Lymph % (Auto) 2.4 L Haakon % (Auto) 1.9 Eos % (Auto) 0.0 Baso % (Auto) 0.0 Neut # 16.5 H Lymph # 0.4 L Haakon # 0.3 Eos # 0.0 Baso # 0.0 Total Counted Cancelled Neutrophils % (Manual) Cancelled Band Neutrophils % Cancelled Lymphocytes % (Manual) Cancelled Reactive Lymphs % Cancelled Monocytes % (Manual) Cancelled Eosinophils % (Manual) Cancelled Basophils % (Manual) Cancelled Metamyelocytes % Cancelled Myelocytes % Cancelled Promyelocytes % Cancelled Blast Cells % Cancelled Plasma Cell % (Manual) Cancelled Nucleated RBC % Cancelled Hypersegmented Polys Cancelled Smudge Cells Cancelled Toxic Granulation Cancelled Dohle Bodies Cancelled Bekah Rods Cancelled Platelet Estimate Cancelled Plt Clumps, EDTA Cancelled Large Platelets Cancelled Giant Platelets Cancelled RBC Morphology Cancelled Polychromasia Cancelled Hypochromasia (manual) Cancelled Poikilocytosis (manual Cancelled Basophilic Stippling Cancelled Anisocytosis (manual) Cancelled Microcytosis (manual) Cancelled Macrocytosis (manual) Cancelled Spherocytes Cancelled Sickle Cells Cancelled Target Cells Cancelled Tear Drop Cells Cancelled Ovalocytes Cancelled Stomatocytes Cancelled Helmet Cells Cancelled Steve-Plumwood Bodies Cancelled Richardson Cells Cancelled Acanthocytes (Spur) Cancelled Rouleaux Cancelled Schistocytes Cancelled Sodium 141 Potassium 4.8 Chloride 99 Carbon Dioxide 27 Anion Gap 20 BUN 25 H Creatinine 0.6 L Est GFR ( Amer) > 60 Est GFR (Non-Af Amer) > 60 POC Glucose (mg/dL) 302 H Random Glucose 212 H Calcium 9.6 Total Bilirubin 0.4 AST 16 ALT 27 Alkaline Phosphatase 122 Total Protein 7.3 Albumin 2.8 L Globulin 4.5 H Albumin/Globulin Ratio 0.6 L Influenza Typ A,B (EIA) Negative for flu a/b 09/02/16 05:52 WBC RBC Hgb Hct MCV MCH MCHC RDW Plt Count MPV Neut % (Auto) Lymph % (Auto) Haakon % (Auto) Eos % (Auto) Baso % (Auto) Neut # Lymph # Haakon # Eos # Baso # Total Counted Neutrophils % (Manual) Band Neutrophils % Lymphocytes % (Manual) Reactive Lymphs % Monocytes % (Manual) Eosinophils % (Manual) Basophils % (Manual) Metamyelocytes % Myelocytes % Promyelocytes % Blast Cells % Plasma Cell % (Manual) Nucleated RBC % Hypersegmented Polys Smudge Cells Toxic Granulation Dohle Bodies Bekah Rods Platelet Estimate Plt Clumps, EDTA Large Platelets Giant Platelets RBC Morphology Polychromasia Hypochromasia (manual) Poikilocytosis (manual Basophilic Stippling Anisocytosis (manual) Microcytosis (manual) Macrocytosis (manual) Spherocytes Sickle Cells Target Cells Tear Drop Cells Ovalocytes Stomatocytes Helmet Cells Steve-Plumwood Bodies [place] Cells Acanthocytes (Spur) Rouleaux Schistocytes Sodium Potassium Chloride Carbon Dioxide Anion Gap BUN Creatinine Est GFR ( Amer) Est GFR (Non-Af Amer) POC Glucose (mg/dL) 237 H Random Glucose Calcium Total Bilirubin AST ALT Alkaline Phosphatase Total Protein Albumin Globulin Albumin/Globulin Ratio Influenza Typ A,B (EIA) Assessment & Plan (1) Multiple pulmonary nodules Assessment and Plan: infectious vs malignant etiology given prior recent imaging not suggestive of these nodule, infection more likely will need repeat imaging in the future post infectious treatment to follow may need biopsy if increase in size post infectious treatment Status: Acute (2) Leukocytosis Assessment and Plan: improving with antibiotics Status: Acute (3) Anemia Assessment and Plan: will check ferritin, retic count, b12, folate to further characterize Status: Acute (4) Elevated serum globulin level Assessment and Plan: will check for monoclonal protein Thank you for this interesting consult. Status: Acute
--- NOTE | 2016-09-02 20:58 | CARD ---
APPROVED REPORT EKG Measurement Heart [id number] HI [id number] <Conclusion> Sinus tachycardia Otherwise normal ECG
[2016-09-02] MEDS: Insulin Detemir 100 Units/ml Inj SC SCH (21:53)
[2016-09-03 05:08] LABS: ALB/GLOB RATIO 0.6 (1.0-2.1); ALKALINE PHOSPHATASE 113 U/L (38-126); ALT/SGPT 29 U/L (9-52); AST/SGOT 24 U/L (14-36); BILIRUBIN,TOTAL 0.5 mg/dl (0.2-1.3); BLOOD UREA NITROGEN 15 mg/dl (7-17); CALCIUM 8.9 mg/dL (8.4-10.2); CARBON DIOXIDE 32 mmol/L (22-30); CHLORIDE 96 mmol/L (98-107); GFR AFRICAN-AMERICAN > 60; GLUCOSE,RANDOM 147 mg/dL (65-105); POTASSIUM 4.3 MMOL/L (3.6-5.0); SODIUM 137 mmol/l (132-148); TOTAL PROTEIN 6.9 G/DL (6.3-8.2)
[2016-09-03 05:10] LABS: BASO % 0.2 % (0.0-2.0); HEMATOCRIT 30.7 % (34.0-47.0); LYMPH # 0.6 K/uL (1.0-4.3); LYMPH % 4.7 % (20.0-40.0); MEAN CELL VOLUME 83.7 fl (81.0-99.0); MEAN CORPUSCULAR HEMOGLOBIN 27.4 pg (27.0-31.0); MEAN CORPUSCULAR HGB CONC 32.7 g/dL (33.0-37.0); MEAN PLATELET VOLUME 6.7 fl (7.2-11.7); MONO # 0.3 K/uL (0.0-0.8); MONO % 2.5 % (0.0-10.0); NEUT # 11.4 K/uL (1.8-7.0); NEUT % 92.6 % (50.0-75.0); RED CELL DISTRIBUTION WIDTH 16.9 % (11.5-14.5); WHITE BLOOD COUNT 12.3 K/uL (4.8-10.8)
--- NOTE | 2016-09-03 07:21 | CP.PCM.PN ---
Subjective - Date & Time of Evaluation Date of Evaluation: 09/03/16 Time of Evaluation: 07:20 - Subjective Subjective: doing well, c/o left flank pain pending am cxr, am labs noted consults appriciated Objective - Vital Signs/Intake and Output Vital Signs (last 24 hours): Temp Pulse Resp BP Pulse Ox 97.9 F 96 H 16 143/72 90 L 09/03/16 05:14 09/03/16 05:14 09/03/16 05:14 09/03/16 05:14 09/03/16 05:14 - Medications Medications: Current Medications Al Hydrox/Mg Hydrox/Simethicone (Maalox Plus 30 Ml) 30 ml PO Q6 PRN PRN Reason: Indigestion / Heartburn Albuterol (Ventolin Hfa 90 Mcg/Actuation (8 G)) 1 puff INH RQ4 PRN PRN Reason: Shortness of Breath Albuterol/Ipratropium (Duoneb 3 Mg/0.5 Mg (3 Ml) Ud) 3 ml INH RQ4 PRN PRN Reason: Shortness of Breath Last Admin: 09/02/16 01:24 Dose: 3 ml Amlodipine Besylate (Norvasc) 10 mg PO DAILY [facility] Last Admin: 09/02/16 08:37 Dose: 10 mg Escitalopram Oxalate (Lexapro) 20 mg PO DAILY [facility] Last Admin: 09/02/16 10:00 Dose: 20 mg Linezolid (Zyvox 600mg/300ml D5w) 300 mls @ 300 mls/hr IVPB Q12 [facility] Last Admin: 09/02/16 21:53 Dose: 300 mls/hr Insulin Detemir (Levemir) 6 units SC HS [facility] Last Admin: 09/02/16 21:53 Dose: 6 units Insulin Human Regular (Humulin R) 0 units SC ACHS [facility] PRN Reason: Protocol Last Admin: 09/02/16 22:21 Dose: Not Given Oxycodone/Acetaminophen (Percocet 5/325 Mg Tab) 1 tab PO Q4 PRN PRN Reason: Pain, moderate (4-7) Stop: 09/04/16 17:17 Last Admin: 09/02/16 16:20 Dose: 1 tab Pantoprazole Sodium (Protonix Ec Tab) 40 mg PO DAILY [facility] Last Admin: 09/02/16 08:38 Dose: 40 mg Phenol/Menthol (Phenaseptic 1.4% Throat [place]) 1 spry MT TID [facility] Last Admin: 09/02/16 16:10 Dose: 1 spr Promethazine HCl/Dextromethorphan (Phenergan Dm Syrup) 5 ml PO Q6 PRN PRN Reason: Cough Last Admin: 09/02/16 08:58 Dose: 5 ml - Labs Labs: 09/03/16 04:00 09/03/16 04:00 PT 10.3 SECONDS (9.6-11.2) 09/01/16 13:15 INR 0.99 (0.92-1.08) 09/01/16 13:15 - Constitutional Appears: Well, Non-toxic, No Acute Distress - Head Exam Head Exam: ATRAUMATIC, NORMAL INSPECTION, NORMOCEPHALIC - Eye Exam Eye Exam: EOMI, Normal appearance, PERRL Pupil Exam: NORMAL ACCOMODATION, PERRL - ENT Exam ENT Exam: Mucous Membranes Moist, Normal Exam - Neck Exam Neck Exam: Full ROM, Normal Inspection. absent: Lymphadenopathy - Respiratory Exam Respiratory Exam: Rhonchi, Wheezes, NORMAL BREATHING PATTERN - Cardiovascular Exam Cardiovascular Exam: REGULAR RHYTHM, RRR, +S1, +S2. absent: Murmur - GI/Abdominal Exam GI & Abdominal Exam: Soft, Normal Bowel Sounds. absent: Tenderness - Extremities Exam Extremities Exam: Full ROM, Normal Capillary Refill, Normal Inspection. absent : Joint Swelling, Pedal Edema - Back Exam Back Exam: NORMAL INSPECTION - Neurological Exam Neurological Exam: Alert, Awake, CN II-XII Intact, Normal Gait, Oriented x3 - Psychiatric Exam Psychiatric exam: Normal Affect, Normal Mood - Skin Skin Exam: Dry, Intact, Normal Color, Warm Assessment and Plan (1) Hemoptysis Status: Acute (2) Type 2 diabetes mellitus with hyperglycemia Status: Acute (3) DVT prophylaxis Status: Acute (4) Left flank pain Status: Acute - Assessment and Plan (Free Text) Assessment: (1) Hemoptysis Assessment & Plan: unkn etiology repeat cxr today, id, pulm, heme/onc cosult, zyvox albuterol, duonebs, phenergen ?? robles for anbx, pt/ot Status: Acute (2) Type 2 diabetes mellitus with hyperglycemia Assessment & Plan: riss, levemir, fsbg, diet Status: Acute (3) DVT prophylaxis Assessment & Plan: scd nad aehose ambulation, hold anticoag for possible bx Status: Acute 4-left flank pain-?? r/t chronic pain vs pulm infection cxr, pain control, anbx
[2016-09-03] MEDS: Insulin Regular 100 units/ml SC SCH ×4 (08:21→21:57)
[2016-09-03] MEDS: Pantoprazole 40 mg EC Tab PO SCH (08:23)
[2016-09-03] MEDS: Phenol 1.4% Throat Spray MT SCH ×3 (08:23→16:34)
[2016-09-03] MEDS: Linezolid 600 mg in D5W 300 ml 300 ML IVPB SCH ×2 (08:29→21:27)
--- NOTE | 2016-09-03 09:15 | CP.PCM.PN ---
Subjective - Date & Time of Evaluation Date of Evaluation: 09/03/16 Time of Evaluation: 09:15 - Subjective Subjective: STILL C/O SOB ON MILD EXERTION COUGHING BUT NO BLOOD NOTED Objective - Vital Signs/Intake and Output Vital Signs (last 24 hours): Temp Pulse Resp BP Pulse Ox 97.9 F 89 16 150/80 90 L 09/03/16 05:14 09/03/16 08:22 09/03/16 05:14 09/03/16 08:22 09/03/16 05:14 - Medications Medications: Current Medications Al Hydrox/Mg Hydrox/Simethicone (Maalox Plus 30 Ml) 30 ml PO Q6 PRN PRN Reason: Indigestion / Heartburn Albuterol (Ventolin Hfa 90 Mcg/Actuation (8 G)) 1 puff INH RQ4 PRN PRN Reason: Shortness of Breath Albuterol/Ipratropium (Duoneb 3 Mg/0.5 Mg (3 Ml) Ud) 3 ml INH RQ4 PRN PRN Reason: Shortness of Breath Last Admin: 09/02/16 01:24 Dose: 3 ml Amlodipine Besylate (Norvasc) 10 mg PO DAILY [facility] Last Admin: 09/03/16 08:22 Dose: 10 mg Escitalopram Oxalate (Lexapro) 20 mg PO DAILY [facility] Last Admin: 09/03/16 08:22 Dose: 20 mg Linezolid (Zyvox 600mg/300ml D5w) 300 mls @ 300 mls/hr IVPB Q12 [facility] Last Admin: 09/03/16 08:29 Dose: 300 mls/hr Insulin Detemir (Levemir) 6 units SC HS [facility] Last Admin: 09/02/16 21:53 Dose: 6 units Insulin Human Regular (Humulin R) 0 units SC ACHS [facility] PRN Reason: Protocol Last Admin: 09/03/16 08:21 Dose: Not Given Oxycodone/Acetaminophen (Percocet 5/325 Mg Tab) 1 tab PO Q4 PRN PRN Reason: Pain, moderate (4-7) Stop: 09/04/16 17:17 Last Admin: 09/02/16 16:20 Dose: 1 tab Pantoprazole Sodium (Protonix Ec Tab) 40 mg PO DAILY [facility] Last Admin: 09/03/16 08:23 Dose: 40 mg Phenol/Menthol (Phenaseptic 1.4% Throat [place]) 1 spry MT TID DINO Last Admin: 09/03/16 08:23 Dose: 1 spr Promethazine HCl/Dextromethorphan (Phenergan Dm Syrup) 5 ml PO Q6 PRN PRN Reason: Cough Last Admin: 09/02/16 08:58 Dose: 5 ml - Labs Labs: 09/03/16 04:00 09/03/16 04:00 PT 10.3 SECONDS (9.6-11.2) 09/01/16 13:15 INR 0.99 (0.92-1.08) 09/01/16 13:15 - Constitutional Appears: Chronically Ill - Head Exam Head Exam: ATRAUMATIC, NORMAL INSPECTION, NORMOCEPHALIC - Eye Exam Eye Exam: EOMI, Normal appearance, PERRL Pupil Exam: NORMAL ACCOMODATION, PERRL - ENT Exam ENT Exam: Mucous Membranes Moist, Normal Exam - Neck Exam Neck Exam: Full ROM, Normal Inspection. absent: Lymphadenopathy - Respiratory Exam Respiratory Exam: Decreased Breath Sounds, Prolonged Expiratory Phase, Rales, Wheezes - Cardiovascular Exam Cardiovascular Exam: REGULAR RHYTHM, +S1, +S2. absent: Murmur - GI/Abdominal Exam GI & Abdominal Exam: Soft, Normal Bowel Sounds. absent: Tenderness - Rectal Exam Rectal Exam: NORMAL INSPECTION - Extremities Exam Extremities Exam: Full ROM, Normal Capillary Refill, Normal Inspection. absent : Joint Swelling, Pedal Edema - Back Exam Back Exam: NORMAL INSPECTION - Neurological Exam Neurological Exam: Alert, Awake, CN II-XII Intact, Normal Gait, Oriented x3 - Psychiatric Exam Psychiatric exam: Normal Affect, Normal Mood - Skin Skin Exam: Dry, Intact, Normal Color, Warm Assessment and Plan - Assessment and Plan (Free Text) Assessment: ACUTE EXAC OF COPD PNEUMONIA HEMOPTYSIS/HEMATEMESES NON-COMPLIANCE Plan: CONTINUE PRESENT RX REPEAT CXR
[2016-09-03 11:35] LABS: FOLATE 5.8 ng/mL
--- NOTE | 2016-09-03 12:11 | CP.PCM.CON ---
History of Present Illness - History of Present Illness History of Present Illness: 65 year old female with hx of COPD, admitted with hemoptysis, found to have b/ l pulmonary masses. Past medical history: tobacco abuse, COPD Past surgical history: Pasrtial hysterectomy, bladder repair with mesh Family history: Mother had colon cancer Social history: Smokes 3-4 cigs daily x 35 years, denies alcohol, and illicit drug use. Allergies: Aspirin, PCN, sulfa, vancomycin Review of systems: All remaining review of systems including HEENT, cardiovascular, respiratory, gastrointestinal, genitourinary, musculoskeletal, dermatologic, neurologic, and psychiatric are negative unless mentioned in the HPI. Review of Systems - Constitutional Constitutional: As Per HPI - EENT Eyes: absent: As Per HPI, Blind Spots, Blurred Vision, Change in Vision, Decreased Night Vision, Diplopia, Discharge, Dry Eye, Exophthalmos, Floaters, Irritation, Itchy Eyes, Loss of Peripheral Vision, Pain, Photophobia, Requires Corrective Lenses, Sees Flashes, Spots in Vision, Tunnel Vision, Other Visual Disturbances, Loss of Vision, Other Ears: absent: As Per HPI, Decreased Hearing, Ear Discharge, Ear Pain, Tinnitus, Abnormal Hearing, Disequilibrium, Dizziness, Other Nose/Mouth/Throat: absent: As Per HPI, Epistaxis, Nasal Congestion, Nasal Discharge, Nasal Obstruction, Nasal Trauma, Nose Pain, Post Nasal Drip, Sinus Pain, Sinus Pressure, Bleeding Gums, Change in Voice, Dental Pain, Dry Mouth, Dysphagia, Halitosis, Hoarsness, Lip Swelling, Mouth Lesions, Mouth Pain, Odynophagia, Sore Throat, Throat Swelling, Tongue Swelling, Facial Pain, Neck Pain, Neck Mass, Other - Breasts Breasts: absent: As Per HPI, Change in Shape, Mass, Pain, Nipple Discharge, Nipple Inversion, Skin Changes, Swelling, Other - Cardiovascular Cardiovascular: As Per HPI - Respiratory Respiratory: As Per HPI, Cough, Hemoptysis - Gastrointestinal Gastrointestinal: absent: As Per HPI, Abdominal Pain, Belching, Bloating, Change in Bowel Habits, Change in Stool Character, Coffee Ground Emesis, Constipation, Cramping, Diarrhea, Dyspepsia, Dysphagia, Early Satiety, Excessive Flatus, Fecal Incontinence, Heartburn, Hematemesis, Hematochezia, Loose Stools, Melena, Nausea, Odynophagia, Temesmus, Vomiting, Other - Genitourinary Genitourinary: absent: As Per HPI, Change in Urinary Stream, Difficulty Urinating, Dysuria, Flank Pain, Hematuria, Pyuria, Nocturia, Urinary Incontinence, Urinary Frequency, Urinary Hesitance, Urinary Urgency, Voiding Freq/Small Amts, Freq UTI, Hx Renal/Bladder Calculi, Hx /Renal Surgery, Bladder Distension, Other - Reproductive: Female Reproductive:Female: absent: As Per HPI, Amenorrhea, Amenorrhea/ Control, Currently Menstual, Cycle <21 Days, Cycle >35 Days, Cycle Variable, Menses 1-7 Days, Menses >/= 8 Days, Menses Variable, Cycle > 4 Weeks Between, No Menses for 6 Months, Heavy Menses, Light Menses, Normal Menses, Spotting Between Cycles , S/P Hysterectomy, Menopausal, Post Menopausal, Premenarche, Abnormal Vaginal Bleeding, Dysmenorrhea, Dyspareunia, Genital Lesions, Genital Pruritis, Pelvic Pain, Prolapse Symptoms, Sexual Dysfunction, Vaginal Discharge, Vaginal Dryness , Vaginal Odor, Vaginal Pruritis, Other - Menstruation Menstruation: absent: As Per HPI, Amenorrhea, Amenorrhea/ Control, Currently Menstual, Cycle <21 Days, Cycle >35 Days, Cycle Variable, Menses 1-7 Days, Menses >/= 8 Days, Menses Variable, Cycle > 4 Weeks Between, No Menses for 6 Months, Heavy Menses, Light Menses, Normal Menses, Spotting Between Cycles , S/P Hysterectomy, Menopausal, Post Menopausal, Premenarche, Abnormal Vaginal Bleeding, Dysmenorrhea, Other - Integumentary Integumentary: absent: As Per HPI, Acne, Alopecia, Bleeding Lesions, Change in Hair, Change in Nails, Change in Pigmentation, Changing Lesions, Dry Skin, Erythema, Furuncle, Hirsutism, Lesions, New Lesions, Non-Healing Lesions, Photosensitivity, Pruritus, Rash, Skin Pain, Skin Ulcer, Sores, Striae, Swelling , Unusual Bruising, Wounds, Jaundice, Other - Neurological Neurological: absent: As Per HPI, Abnormal Gait, Abnormal Hearing, Abnormal Movements, Abnormal Speech, Behavioral Changes, Burning Sensations, Confusion, Convulsions, Disequilibrium, Dizziness, Numbness, Focal Weakness, Frequent Falls , Headaches, Lack of Coordination, Loss of Vision, Memory Loss, Paresthesias, Radicular Pain, Restless Legs, Sensory Deficit, Syncope, Tingling, Tremor, Vertigo, Weakness, Other Visual Disturbances, Other - Psychiatric Psychiatric: absent: As Per HPI, Abnormal Sleep Pattern, Anhedonia, Anxiety, Auditory Hallucinations, Behavioral Changes, Change in Appetite, Change in Libido, Confusion, Depression, Difficulty Concentrating, Hallucinations, Homicidal Ideation, Hopelessness, Irritability, Memory Loss, Mood Swings, Panic Attacks, Paranoia, Suicidal Ideation, Visual Hallucinations, Tactile Hallucinations, Other - Endocrine Endocrine: absent: As Per HPI, Change in Body Appearance, Change in Libido, Cold Intolorance, Deepening of Voice, Excessive Sweating, Fatigue, Flushing, Heat Intolorance, Increase in Ring/Shoe/Hat Size, Palpitations, Polydipsia, Polyphagia, Polyuria, Other - Hematologic/Lymphatic Hematologic: absent: As Per HPI, Easy Bleeding, Easy Bruising, Lymphadenopathy, Other Past Patient History - Infectious Disease Hx of Infectious Diseases: None - Past Medical History & Family History Past Medical History?: Yes - Past Social History Smoking Status: Current Some Days Smoker - CARDIAC Hx Hypercholesterolemia: Yes Hx Hypertension: Yes - PULMONARY Hx Asthma: Yes Hx Chronic Obstructive Pulmonary Disease (COPD): Yes Hx Pneumonia: Yes - NEUROLOGICAL Hx Neurological Disorder: No - HEENT Hx HEENT Problems: Yes Other/Comment: eyeglasses - RENAL Hx Chronic Kidney Disease: No - ENDOCRINE/METABOLIC Hx Endocrine Disorders: No Hx Diabetes Mellitus Type 2: No (denies diabetes hx) - HEMATOLOGICAL/ONCOLOGICAL Hx Human Immunodeficiency Virus (HIV): No - INTEGUMENTARY Hx Dermatological Problems: No - MUSCULOSKELETAL/RHEUMATOLOGICAL Hx Musculoskeletal Disorders: No Hx Falls: No - GASTROINTESTINAL Hx Gastrointestinal Disorders: Yes Hx Diarrhea: Yes Other/Comment: peritonitis - GENITOURINARY/GYNECOLOGICAL Hx Genitourinary Disorders: No - PSYCHIATRIC Hx Anxiety: Yes Hx Depression: Yes - SURGICAL HISTORY Hx Appendectomy: Yes Hx Cholecystectomy: Yes - ANESTHESIA Hx Anesthesia: Yes Hx Anesthesia Reactions: No Hx Malignant Hyperthermia: No Meds Allergies/Adverse Reactions: Allergies Allergy/AdvReac Type Severity Reaction Status Date / Time aspirin Allergy Severe ANAPHYLAXIS Verified 07/26/16 07:07 Penicillins Allergy ANGIOEDEMA Verified 07/26/16 07:07 Sulfa (Sulfonamide Allergy ANGIOEDEMA Verified 07/26/16 07:07 Antibiotics) vancomycin Allergy VOMITING Verified 07/26/16 07:07 - Medications Medications: Current Medications Al Hydrox/Mg Hydrox/Simethicone (Maalox Plus 30 Ml) 30 ml PO Q6 PRN PRN Reason: Indigestion / Heartburn Albuterol (Ventolin Hfa 90 Mcg/Actuation (8 G)) 1 puff INH RQ4 PRN PRN Reason: Shortness of Breath Albuterol/Ipratropium (Duoneb 3 Mg/0.5 Mg (3 Ml) Ud) 3 ml INH RQ4 PRN PRN Reason: Shortness of Breath Last Admin: 09/02/16 01:24 Dose: 3 ml Amlodipine Besylate (Norvasc) 10 mg PO DAILY [facility] Last Admin: 09/03/16 08:22 Dose: 10 mg Escitalopram Oxalate (Lexapro) 20 mg PO DAILY [facility] Last Admin: 09/03/16 08:22 Dose: 20 mg Linezolid (Zyvox 600mg/300ml D5w) 300 mls @ 300 mls/hr IVPB Q12 [facility] Last Admin: 09/03/16 08:29 Dose: 300 mls/hr Insulin Detemir (Levemir) 6 units SC HS [facility] Last Admin: 09/02/16 21:53 Dose: 6 units Insulin Human Regular (Humulin R) 0 units SC ACHS [facility] PRN Reason: Protocol Last Admin: 09/03/16 08:21 Dose: Not Given Oxycodone/Acetaminophen (Percocet 5/325 Mg Tab) 1 tab PO Q4 PRN PRN Reason: Pain, moderate (4-7) Stop: 09/04/16 17:17 Last Admin: 09/02/16 16:20 Dose: 1 tab Pantoprazole Sodium (Protonix Ec Tab) 40 mg PO DAILY [facility] Last Admin: 09/03/16 08:23 Dose: 40 mg Phenol/Menthol (Phenaseptic 1.4% Throat [place]) 1 spry MT TID [facility] Last Admin: 09/03/16 08:23 Dose: 1 spr Promethazine HCl/Dextromethorphan (Phenergan Dm Syrup) 5 ml PO Q6 PRN PRN Reason: Cough Last Admin: 09/02/16 08:58 Dose: 5 ml Physical Exam - Constitutional Appears: Non-toxic, Chronically Ill - Head Exam Head Exam: NORMOCEPHALIC - Eye Exam Eye Exam: PERRL. absent: Scleral icterus - ENT Exam ENT Exam: Mucous Membranes Dry - Neck Exam Neck exam: Negative for: Lymphadenopathy, Thyromegaly - Respiratory Exam Respiratory Exam: Decreased Breath Sounds, Prolonged Expiratory Phase, Rhonchi, Wheezes - Cardiovascular Exam Cardiovascular Exam: REGULAR RHYTHM, +S1, +S2 - GI/Abdominal Exam GI & Abdominal Exam: Diminished Bowel Sounds - Rectal Exam Rectal Exam: Deferred - Exam Exam: NORMAL INSPECTION - Extremities Exam Extremities exam: Negative for: pedal edema - Back Exam Back exam: absent: CVA tenderness (L), CVA tenderness (R) - Neurological Exam Neurological exam: Alert, CN II-XII Intact, Oriented x3, Reflexes Normal - Psychiatric Exam Psychiatric exam: Depressed - Skin Skin Exam: Dry Results - Vital Signs Recent Vital Signs: Last Vital Signs Temp 99.5 F 09/03/16 09:00 Pulse 89 09/03/16 09:00 Resp 20 09/03/16 09:00 BP 150/80 09/03/16 09:00 Pulse Ox 99 09/03/16 09:00 - Labs Result Diagrams: 09/03/16 04:00 09/03/16 04:00 Labs: Laboratory Results - last 24 hr 09/02/16 09/02/16 09/02/16 12:23 15:59 17:26 WBC RBC Hgb Hct MCV MCH MCHC RDW Plt Count MPV Neut % (Auto) Lymph % (Auto) Cole % (Auto) Eos % (Auto) Baso % (Auto) Neut # Lymph # Cole # Eos # Baso # Total Counted Neutrophils % (Manual) Band Neutrophils % Lymphocytes % (Manual) Reactive Lymphs % Monocytes % (Manual) Eosinophils % (Manual) Basophils % (Manual) Metamyelocytes % Myelocytes % Promyelocytes % Blast Cells % Plasma Cell % (Manual) Nucleated RBC % Hypersegmented Polys Smudge Cells Toxic Granulation Dohle Bodies Bekah Rods Platelet Estimate Plt Clumps, EDTA Large Platelets Giant Platelets RBC Morphology Polychromasia Hypochromasia (manual) Poikilocytosis (manual Basophilic Stippling Anisocytosis (manual) Microcytosis (manual) Macrocytosis (manual) Spherocytes Sickle Cells Target Cells Tear Drop Cells Ovalocytes Stomatocytes Helmet Cells [place] Bodies Richardson Cells Acanthocytes (Spur) Rouleaux Schistocytes Retic Count Sodium Potassium Chloride Carbon Dioxide Anion Gap BUN Creatinine Est GFR ( Amer) Est GFR (Non-Af Amer) POC Glucose (mg/dL) 384 H 270 H Random Glucose Calcium Ferritin Total Bilirubin AST ALT Alkaline Phosphatase Total Protein Albumin Globulin Albumin/Globulin Ratio Vitamin B12 Folate Urine Opiates Screen Positive H Urine Methadone Screen Negative Ur Barbiturates Screen Negative Ur Phencyclidine Scrn Negative Ur Amphetamines Screen Negative U Benzodiazepines Scrn Positive H U Oth Cocaine Metabols Negative U Cannabinoids Screen Negative 09/02/16 09/03/16 09/03/16 21:27 04:00 06:05 WBC 12.3 H RBC 3.67 L Hgb 10.1 L Hct 30.7 L MCV 83.7 MCH 27.4 MCHC 32.7 L RDW 16.9 H Plt Count 311 MPV 6.7 L Neut % (Auto) 92.6 H Lymph % (Auto) 4.7 L Cole % (Auto) 2.5 Eos % (Auto) 0.0 Baso % (Auto) 0.2 Neut # 11.4 H Lymph # 0.6 L Cole # 0.3 Eos # 0.0 Baso # 0.0 Total Counted Cancelled Neutrophils % (Manual) Cancelled Band Neutrophils % Cancelled Lymphocytes % (Manual) Cancelled Reactive Lymphs % Cancelled Monocytes % (Manual) Cancelled Eosinophils % (Manual) Cancelled Basophils % (Manual) Cancelled Metamyelocytes % Cancelled Myelocytes % Cancelled Promyelocytes % Cancelled Blast Cells % Cancelled Plasma Cell % (Manual) Cancelled Nucleated RBC % Cancelled Hypersegmented Polys Cancelled Smudge Cells Cancelled Toxic Granulation Cancelled Dohle Bodies Cancelled Bekah Rods Cancelled Platelet Estimate Cancelled Plt Clumps, EDTA Cancelled Large Platelets Cancelled Giant Platelets Cancelled RBC Morphology Cancelled Polychromasia Cancelled Hypochromasia (manual) Cancelled Poikilocytosis (manual Cancelled Basophilic Stippling Cancelled Anisocytosis (manual) Cancelled Microcytosis (manual) Cancelled Macrocytosis (manual) Cancelled Spherocytes Cancelled Sickle Cells Cancelled Target Cells Cancelled Tear Drop Cells Cancelled Ovalocytes Cancelled Stomatocytes Cancelled Helmet Cells Cancelled [place] Bodies Cancelled Richardson Cells Cancelled Acanthocytes (Spur) Cancelled Rouleaux Cancelled Schistocytes Cancelled Retic Count 1.0 Sodium 137 Potassium 4.3 Chloride 96 L Carbon Dioxide 32 H Anion Gap 13 BUN 15 Creatinine 0.5 L Est GFR ( Amer) > 60 Est GFR (Non-Af Amer) > 60 POC Glucose (mg/dL) 137 H 137 H Random Glucose 147 H Calcium 8.9 Ferritin 863.0 Total Bilirubin 0.5 AST 24 ALT 29 Alkaline Phosphatase 113 Total Protein 6.9 Albumin 2.6 L Globulin 4.3 H Albumin/Globulin Ratio 0.6 L Vitamin B12 410 Folate 5.8 Urine Opiates Screen Urine Methadone Screen Ur Barbiturates Screen Ur Phencyclidine Scrn Ur Amphetamines Screen U Benzodiazepines Scrn U Oth Cocaine Metabols U Cannabinoids Screen Assessment & Plan (1) COPD exacerbation Status: Acute (2) Hemoptysis Status: Acute (3) Multiple pulmonary nodules Status: Acute - Assessment and Plan (Free Text) Assessment: r/o maliganancy needs FOB consider isolation pending afb
[2016-09-03] MEDS: Oxycodone/Acetaminophen 5/325 mg Tab PO PRN ×3 (12:59→21:26)
--- NOTE | 2016-09-03 15:53 | RAD ---
HISTORY: abn cxr on admission COMPARISON: Chest x-ray performed 09/01/16 TECHNIQUE: Chest PA and lateral FINDINGS: LUNGS: Multiple bilateral nodular and masslike opacities several of which appear cavitary Please note that chest x-ray has limited sensitivity for the detection of pulmonary masses. PLEURA: No significant pleural effusion identified. No definite pneumothorax . CARDIOVASCULAR: The cardiomediastinal silhouette appears within normal limits of size. OSSEOUS STRUCTURES: Osseous demineralization. Degenerative changes. VISUALIZED UPPER ABDOMEN: Unremarkable. OTHER FINDINGS: None. IMPRESSION: Multiple bilateral nodular masslike opacity several of which appear cavitary. Please refer to CTA chest performed 09/01/16 for more detailed discussion. Overall appearance stable since prior study. Differential diagnosis includes infectious, inflammatory, and malignant etiologies.
[2016-09-03] MEDS: Insulin Detemir 100 Units/ml Inj SC SCH (21:56)
[2016-09-03] MEDS: Albuterol-Ipratrop 3 mg / 0.5 (3 ml) UD INH PRN (22:10)
[2016-09-04] MEDS: Insulin Regular 100 units/ml SC SCH ×4 (06:54→21:29)
[2016-09-04] MEDS: Oxycodone/Acetaminophen 5/325 mg Tab PO PRN ×2 (06:58→18:52)
--- NOTE | 2016-09-04 07:35 | CP.PCM.PN ---
Subjective - Date & Time of Evaluation Date of Evaluation: 09/04/16 Time of Evaluation: 07:35 - Subjective Subjective: no new complaints. still w/ left flank pain. no f/c, n/v/d. wbc still w/ wbc 12. case d/c w/ dr heard as pt has MRSA in sputum. per dr heard zyvox should cover MRSA. pending rest of c/s pt uses o2 prn. for robles for iv anbx Objective - Vital Signs/Intake and Output Vital Signs (last 24 hours): Temp Pulse Resp BP Pulse Ox 98.7 F 88 20 118/72 93 L 09/04/16 05:18 09/04/16 05:18 09/04/16 05:18 09/04/16 05:18 09/04/16 05:18 - Medications Medications: Current Medications Al Hydrox/Mg Hydrox/Simethicone (Maalox Plus 30 Ml) 30 ml PO Q6 PRN PRN Reason: Indigestion / Heartburn Albuterol (Ventolin Hfa 90 Mcg/Actuation (8 G)) 1 puff INH RQ4 PRN PRN Reason: Shortness of Breath Albuterol/Ipratropium (Duoneb 3 Mg/0.5 Mg (3 Ml) Ud) 3 ml INH RQ4 PRN PRN Reason: Shortness of Breath Last Admin: 09/03/16 22:10 Dose: 3 ml Amlodipine Besylate (Norvasc) 10 mg PO DAILY [facility] Last Admin: 09/03/16 08:22 Dose: 10 mg Escitalopram Oxalate (Lexapro) 20 mg PO DAILY [facility] Last Admin: 09/03/16 08:22 Dose: 20 mg Linezolid (Zyvox 600mg/300ml D5w) 300 mls @ 300 mls/hr IVPB Q12 [facility] Last Admin: 09/03/16 21:27 Dose: 300 mls/hr Insulin Detemir (Levemir) 6 units SC HS [facility] Last Admin: 09/03/16 21:56 Dose: 6 units Insulin Human Regular (Humulin R) 0 units SC ACHS [facility] PRN Reason: Protocol Last Admin: 09/04/16 06:54 Dose: 2 unit Oxycodone/Acetaminophen (Percocet 5/325 Mg Tab) 1 tab PO Q4 PRN PRN Reason: Pain, moderate (4-7) Stop: 09/04/16 17:17 Last Admin: 09/04/16 06:58 Dose: 1 tab Pantoprazole Sodium (Protonix Ec Tab) 40 mg PO DAILY [facility] Last Admin: 09/03/16 08:23 Dose: 40 mg Phenol/Menthol (Phenaseptic 1.4% Throat [place]) 1 spry MT TID [facility] Last Admin: 09/03/16 16:34 Dose: 1 spr Promethazine HCl/Dextromethorphan (Phenergan Dm Syrup) 5 ml PO Q6 PRN PRN Reason: Cough Last Admin: 09/02/16 08:58 Dose: 5 ml - Labs Labs: 09/03/16 04:00 09/03/16 04:00 PT 10.3 SECONDS (9.6-11.2) 09/01/16 13:15 INR 0.99 (0.92-1.08) 09/01/16 13:15 - Constitutional Appears: Well, Non-toxic, No Acute Distress - Head Exam Head Exam: ATRAUMATIC, NORMAL INSPECTION, NORMOCEPHALIC - Eye Exam Eye Exam: EOMI, Normal appearance, PERRL Pupil Exam: NORMAL ACCOMODATION, PERRL - ENT Exam ENT Exam: Mucous Membranes Moist, Normal Exam - Neck Exam Neck Exam: Full ROM, Normal Inspection. absent: Lymphadenopathy - Respiratory Exam Respiratory Exam: Rhonchi, Wheezes, NORMAL BREATHING PATTERN - Cardiovascular Exam Cardiovascular Exam: REGULAR RHYTHM, RRR, +S1, +S2. absent: Murmur - GI/Abdominal Exam GI & Abdominal Exam: Soft, Normal Bowel Sounds. absent: Tenderness - Extremities Exam Extremities Exam: Full ROM, Normal Capillary Refill, Normal Inspection. absent : Joint Swelling, Pedal Edema - Back Exam Back Exam: NORMAL INSPECTION - Neurological Exam Neurological Exam: Alert, Awake, CN II-XII Intact, Normal Gait, Oriented x3 - Psychiatric Exam Psychiatric exam: Normal Affect, Normal Mood - Skin Skin Exam: Dry, Intact, Normal Color, Warm Assessment and Plan (1) Hemoptysis Assessment & Plan: r/t abn cxr cont zyvox, cont consults likely robles for iv anbx trend cxr resp tx cough meds Status: Acute (2) Type 2 diabetes mellitus with hyperglycemia Assessment & Plan: cont meds, fsbg, riss, diet Status: Acute (3) DVT prophylaxis Assessment & Plan: scd and ae hose, ambulation Status: Acute (4) Left flank pain Assessment & Plan: r/t abn cxr, pain control Status: Acute (5) Pneumonia Assessment & Plan: see plan for hemoptysis less likely malignancy Status: Acute
[2016-09-04 07:46] LABS: BASO % 0.3 % (0.0-2.0); HEMATOCRIT 31.5 % (34.0-47.0); LYMPH # 0.8 K/uL (1.0-4.3); LYMPH % 6.4 % (20.0-40.0); MEAN CELL VOLUME 83.1 fl (81.0-99.0); MEAN CORPUSCULAR HEMOGLOBIN 27.3 pg (27.0-31.0); MEAN CORPUSCULAR HGB CONC 32.9 g/dL (33.0-37.0); MEAN PLATELET VOLUME 6.5 fl (7.2-11.7); MONO # 0.4 K/uL (0.0-0.8); MONO % 3.5 % (0.0-10.0); NEUT # 10.9 K/uL (1.8-7.0); NEUT % 89.8 % (50.0-75.0); NRBC % 0.1 % (0.0-0.0); WHITE BLOOD COUNT 12.2 K/uL (4.8-10.8)
[2016-09-04 07:51] LABS: ALB/GLOB RATIO 0.6 (1.0-2.1); ALKALINE PHOSPHATASE 141 U/L (38-126); ALT/SGPT 28 U/L (9-52); AST/SGOT 20 U/L (14-36); BILIRUBIN,TOTAL 0.5 mg/dl (0.2-1.3); BLOOD UREA NITROGEN 15 mg/dl (7-17); CALCIUM 8.8 mg/dL (8.4-10.2); CARBON DIOXIDE 34 mmol/L (22-30); CHLORIDE 94 mmol/L (98-107); GFR AFRICAN-AMERICAN > 60; GLUCOSE,RANDOM 206 mg/dL (65-105); POTASSIUM 4.4 MMOL/L (3.6-5.0); SODIUM 138 mmol/l (132-148); TOTAL PROTEIN 7.2 G/DL (6.3-8.2)
[2016-09-04 08:08] LABS: TOTAL PROTEIN, SERUM 6.6 g/dL (6.1-8.1)
--- NOTE | 2016-09-04 08:38 | CP.PCM.PN ---
Subjective - Date & Time of Evaluation Date of Evaluation: 09/04/16 Time of Evaluation: 08:38 - Subjective Subjective: sob improving cough less no recurrence of hemoptysis Objective - Vital Signs/Intake and Output Vital Signs (last 24 hours): Temp Pulse Resp BP Pulse Ox 98.1 F 81 20 122/69 90 L 09/04/16 08:00 09/04/16 08:00 09/04/16 08:00 09/04/16 08:00 09/04/16 08:00 - Medications Medications: Current Medications Al Hydrox/Mg Hydrox/Simethicone (Maalox Plus 30 Ml) 30 ml PO Q6 PRN PRN Reason: Indigestion / Heartburn Albuterol (Ventolin Hfa 90 Mcg/Actuation (8 G)) 1 puff INH RQ4 PRN PRN Reason: Shortness of Breath Albuterol/Ipratropium (Duoneb 3 Mg/0.5 Mg (3 Ml) Ud) 3 ml INH RQ4 PRN PRN Reason: Shortness of Breath Last Admin: 09/03/16 22:10 Dose: 3 ml Amlodipine Besylate (Norvasc) 10 mg PO DAILY [facility] Last Admin: 09/03/16 08:22 Dose: 10 mg Escitalopram Oxalate (Lexapro) 20 mg PO DAILY [facility] Last Admin: 09/03/16 08:22 Dose: 20 mg Linezolid (Zyvox 600mg/300ml D5w) 300 mls @ 300 mls/hr IVPB Q12 [facility] Last Admin: 09/03/16 21:27 Dose: 300 mls/hr Insulin Detemir (Levemir) 6 units SC HS [facility] Last Admin: 09/03/16 21:56 Dose: 6 units Insulin Human Regular (Humulin R) 0 units SC ACHS [facility] PRN Reason: Protocol Last Admin: 09/04/16 06:54 Dose: 2 unit Oxycodone/Acetaminophen (Percocet 5/325 Mg Tab) 1 tab PO Q4 PRN PRN Reason: Pain, moderate (4-7) Stop: 09/04/16 17:17 Last Admin: 09/04/16 06:58 Dose: 1 tab Pantoprazole Sodium (Protonix Ec Tab) 40 mg PO DAILY [facility] Last Admin: 09/03/16 08:23 Dose: 40 mg Phenol/Menthol (Phenaseptic 1.4% Throat [place]) 1 spry MT TID [facility] Last Admin: 09/03/16 16:34 Dose: 1 spr Promethazine HCl/Dextromethorphan (Phenergan Dm Syrup) 5 ml PO Q6 PRN PRN Reason: Cough Last Admin: 09/02/16 08:58 Dose: 5 ml - Labs Labs: 09/04/16 07:20 09/04/16 07:20 PT 10.3 SECONDS (9.6-11.2) 09/01/16 13:15 INR 0.99 (0.92-1.08) 09/01/16 13:15 - Constitutional Appears: Well - Head Exam Head Exam: ATRAUMATIC, NORMAL INSPECTION, NORMOCEPHALIC - Eye Exam Eye Exam: EOMI, Normal appearance, PERRL Pupil Exam: NORMAL ACCOMODATION, PERRL - ENT Exam ENT Exam: Mucous Membranes Moist, Normal Exam - Neck Exam Neck Exam: Full ROM, Normal Inspection. absent: Lymphadenopathy - Respiratory Exam Respiratory Exam: Decreased Breath Sounds, Rales, NORMAL BREATHING PATTERN - Cardiovascular Exam Cardiovascular Exam: REGULAR RHYTHM, +S1, +S2. absent: Murmur - GI/Abdominal Exam GI & Abdominal Exam: Soft, Normal Bowel Sounds. absent: Tenderness - Rectal Exam Rectal Exam: NORMAL INSPECTION - Extremities Exam Extremities Exam: Full ROM, Normal Capillary Refill, Normal Inspection. absent : Joint Swelling, Pedal Edema - Back Exam Back Exam: NORMAL INSPECTION - Neurological Exam Neurological Exam: Alert, Awake, CN II-XII Intact, Normal Gait, Oriented x3 - Psychiatric Exam Psychiatric exam: Normal Affect, Normal Mood - Skin Skin Exam: Dry, Intact, Normal Color, Warm Assessment and Plan - Assessment and Plan (Free Text) Assessment: copd exac ?hemoptysis pneumonia Plan: repeat cxr consider bronchoscopy with lavage if cxr findings worsen/persist
[2016-09-04] MEDS: Pantoprazole 40 mg EC Tab PO SCH (09:00)
[2016-09-04] MEDS: Linezolid 600 mg in D5W 300 ml 300 ML IVPB SCH ×2 (09:00→21:28)
[2016-09-04] MEDS: Phenol 1.4% Throat Spray MT SCH ×3 (10:00→17:06)
[2016-09-04] MEDS: Albuterol HFA 90 mcg/actuation (8 g) INH SCH ×3 (10:08→21:28)
--- NOTE | 2016-09-04 10:57 | CP.PCM.PN ---
Subjective - Date & Time of Evaluation Date of Evaluation: 09/04/16 Time of Evaluation: 09:00 - Subjective Subjective: improving await afb smears Objective - Vital Signs/Intake and Output Vital Signs (last 24 hours): Temp Pulse Resp BP Pulse Ox 98.1 F 81 20 122/69 90 L 09/04/16 08:00 09/04/16 09:00 09/04/16 08:00 09/04/16 09:00 09/04/16 08:00 - Medications Medications: Current Medications Al Hydrox/Mg Hydrox/Simethicone (Maalox Plus 30 Ml) 30 ml PO Q6 PRN PRN Reason: Indigestion / Heartburn Albuterol (Ventolin Hfa 90 Mcg/Actuation (8 G)) 1 puff INH Q6 [facility] Last Admin: 09/04/16 10:08 Dose: 1 puff Albuterol/Ipratropium (Duoneb 3 Mg/0.5 Mg (3 Ml) Ud) 3 ml INH RQ4 PRN PRN Reason: Shortness of Breath Last Admin: 09/03/16 22:10 Dose: 3 ml Amlodipine Besylate (Norvasc) 10 mg PO DAILY [facility] Last Admin: 09/04/16 09:00 Dose: 10 mg Escitalopram Oxalate (Lexapro) 20 mg PO DAILY [facility] Last Admin: 09/04/16 09:00 Dose: 20 mg Linezolid (Zyvox 600mg/300ml D5w) 300 mls @ 300 mls/hr IVPB Q12 [facility] Last Admin: 09/04/16 09:00 Dose: 300 mls/hr Insulin Detemir (Levemir) 6 units SC HS [facility] Last Admin: 09/03/16 21:56 Dose: 6 units Insulin Human Regular (Humulin R) 0 units SC ACHS [facility] PRN Reason: Protocol Last Admin: 09/04/16 06:54 Dose: 2 unit Oxycodone/Acetaminophen (Percocet 5/325 Mg Tab) 1 tab PO Q4 PRN PRN Reason: Pain, moderate (4-7) Stop: 09/04/16 17:17 Last Admin: 09/04/16 06:58 Dose: 1 tab Pantoprazole Sodium (Protonix Ec Tab) 40 mg PO DAILY [facility] Last Admin: 09/04/16 09:00 Dose: 40 mg Phenol/Menthol (Phenaseptic 1.4% Throat [place]) 1 spry MT TID [facility] Last Admin: 09/04/16 10:00 Dose: 1 spr Promethazine HCl/Dextromethorphan (Phenergan Dm Syrup) 5 ml PO Q6 PRN PRN Reason: Cough Last Admin: 09/02/16 08:58 Dose: 5 ml - Labs Labs: 09/04/16 07:20 09/04/16 07:20 PT 10.3 SECONDS (9.6-11.2) 09/01/16 13:15 INR 0.99 (0.92-1.08) 09/01/16 13:15 - Constitutional Appears: Non-toxic, Chronically Ill - Head Exam Head Exam: NORMOCEPHALIC - Eye Exam Eye Exam: absent: Scleral icterus - ENT Exam ENT Exam: Mucous Membranes Dry - Neck Exam Neck Exam: absent: Lymphadenopathy - Respiratory Exam Respiratory Exam: Decreased Breath Sounds, Rhonchi - Cardiovascular Exam Cardiovascular Exam: REGULAR RHYTHM, +S1, +S2 - GI/Abdominal Exam GI & Abdominal Exam: Distended, Soft Assessment and Plan (1) COPD exacerbation Status: Acute (2) Hemoptysis Status: Acute (3) Multiple pulmonary nodules Status: Acute
--- NOTE | 2016-09-04 12:41 | CP.PCM.PN ---
Subjective - Date & Time of Evaluation Date of Evaluation: 09/04/16 Time of Evaluation: 12:00 - Subjective Subjective: Breathing better No further hemoptysis Objective - Vital Signs/Intake and Output Vital Signs (last 24 hours): Temp Pulse Resp BP Pulse Ox 98.1 F 81 20 122/69 90 L 09/04/16 08:00 09/04/16 09:00 09/04/16 08:00 09/04/16 09:00 09/04/16 08:00 - Medications Medications: Current Medications Al Hydrox/Mg Hydrox/Simethicone (Maalox Plus 30 Ml) 30 ml PO Q6 PRN PRN Reason: Indigestion / Heartburn Albuterol (Ventolin Hfa 90 Mcg/Actuation (8 G)) 1 puff INH Q6 DINO Last Admin: 09/04/16 10:08 Dose: 1 puff Albuterol/Ipratropium (Duoneb 3 Mg/0.5 Mg (3 Ml) Ud) 3 ml INH RQ4 PRN PRN Reason: Shortness of Breath Last Admin: 09/03/16 22:10 Dose: 3 ml Amlodipine Besylate (Norvasc) 10 mg PO DAILY [facility] Last Admin: 09/04/16 09:00 Dose: 10 mg Escitalopram Oxalate (Lexapro) 20 mg PO DAILY [facility] Last Admin: 09/04/16 09:00 Dose: 20 mg Linezolid (Zyvox 600mg/300ml D5w) 300 mls @ 300 mls/hr IVPB Q12 DINO Last Admin: 09/04/16 09:00 Dose: 300 mls/hr Insulin Detemir (Levemir) 6 units SC HS [facility] Last Admin: 09/03/16 21:56 Dose: 6 units Insulin Human Regular (Humulin R) 0 units SC ACHS DINO PRN Reason: Protocol Last Admin: 09/04/16 06:54 Dose: 2 unit Oxycodone/Acetaminophen (Percocet 5/325 Mg Tab) 1 tab PO Q4 PRN PRN Reason: Pain, moderate (4-7) Stop: 09/04/16 17:17 Last Admin: 09/04/16 06:58 Dose: 1 tab Pantoprazole Sodium (Protonix Ec Tab) 40 mg PO DAILY [facility] Last Admin: 09/04/16 09:00 Dose: 40 mg Phenol/Menthol (Phenaseptic 1.4% Throat [place]) 1 spry MT TID DINO Last Admin: 09/04/16 10:00 Dose: 1 spr Promethazine HCl/Dextromethorphan (Phenergan Dm Syrup) 5 ml PO Q6 PRN PRN Reason: Cough Last Admin: 09/02/16 08:58 Dose: 5 ml - Labs Labs: 09/04/16 07:20 09/04/16 07:20 PT 10.3 SECONDS (9.6-11.2) 09/01/16 13:15 INR 0.99 (0.92-1.08) 09/01/16 13:15 - Head Exam Head Exam: ATRAUMATIC - Eye Exam Eye Exam: Normal appearance - ENT Exam ENT Exam: Mucous Membranes Dry - Respiratory Exam Respiratory Exam: NORMAL BREATHING PATTERN - Cardiovascular Exam Cardiovascular Exam: +S1, +S2 - GI/Abdominal Exam GI & Abdominal Exam: Normal Bowel Sounds - Extremities Exam Extremities Exam: Normal Inspection Assessment and Plan (1) Multiple pulmonary nodules Assessment & Plan: suspect infectious etiology repeat imaging post antibiotic treatment in 4-6 weeks Status: Acute (2) Leukocytosis Assessment & Plan: improving with antibiotics Status: Acute (3) Anemia Assessment & Plan: elevated ferritin consistent with chronic disease Status: Acute (4) Elevated serum globulin level Assessment & Plan: monoclonal protein w/u sent and pending Status: Acute
--- NOTE | 2016-09-04 13:30 | PQF PNEUMO ---
This form is a permanent part of the medical record 09/04/16 Dr. Davalos, Would you please specify the type of pneumonia if known. Admitted with productive bloody cough, sob and left sided chest pain. CT chest innumerable pulmonary nodules and masses in the lower lobes are both large, complex and cavitary. Neoplastic, infectious/inflammatory etiology are most likely. Sputum CS : MRSA. Sputum for AFB pending. Treated with Zyvox. Clarification of your documentation is requested to better reflect the severity of illness and intensity of treatment of your patient. Indicators present [x] Documented diagnosis of pneumonia [x] X-ray findings: [x] Positive Sputum cultures :MRSA [x] Cough w/ fever [x] Abnormal lungs sounds [] Poor gag reflex [] Speech consults/swallow evaluation [] Vent dependence [] Other: [] Location in the medical record that reflects the above clinical findings: [x] Treatment Provided: [x] Zyvox PHYSICIAN'S RESPONSE Based on your medical judgment of the clinical indicators outlined above, are you treating this patient for a known or suspected: [] Bacterial pneumonia Please specify organism: [] [] Aspiration pneumonia [] Community acquired pneumonia [] Ventilator associated pneumonia [] Viral pneumonia [] Other, please indicate [] If Unable to Determine, please check the box, sign and date. Present On Admission (POA) Indicator: [] Present at the time of admission [] Not present at the time of admission [] Clinically Undetermined In responding to this query, please exercise your independent professional judgment. The fact that a question is asked does not imply that any particular answer is desired or expected. Thank you for your clarification on this documentation. If you have any questions please call:[phone] * Thank you, Beatrice Claros RN CDMP MTDD
--- NOTE | 2016-09-04 13:33 | RAD ---
PROCEDURE: CHEST RADIOGRAPH, 1 VIEW HISTORY: pneumonia COMPARISON: 09/03/2016 two-view chest. 09/01/2016 CT thorax FINDINGS: LUNGS: Stable inflow 1 masses several of which are cavitary. Approximate stability accounting for differences in technique compared to prior studies. PLEURA: No pneumothorax or pleural fluid seen. CARDIOVASCULAR: No radiographic findings to suggest acute or significant cardiovascular disease. OSSEOUS STRUCTURES: No significant abnormalities. VISUALIZED UPPER ABDOMEN: Normal. OTHER FINDINGS: None. IMPRESSION: No active disease. No acute/significant interval changes.
--- NOTE | 2016-09-04 13:44 | PQF GENQUE ---
This form is a permanent part of the medical record 09/04/16 Jp Ureña APN, The ER MD has documented the following information with no mention of this diagnosis in your documentation. Please indicate in your next progress note and /or discharge summary your agreement or provide clarification that this diagnosis is not a current condition after workup. Diagnosis: SEPSIS Documented by: DR. Juliette PRICE Location: ER Admitted with sob, wheezing and productive cough with bloody sputum. Diagnoses include: Hemoptysis, COPD exacerbation, Pneumonia and multiple pulmonary nodules. Afebrile. WBC 23.6 with a left shift. lactate 1.6. BLOOD CS no growth for 48 hours. Sputum CS: MRSA. Treated with Zyvox. Clarification of your documentation is requested to better reflect the severity of illness and intensity of treatment of your patient. PHYSICIAN'S RESPONSE [ ] Sepsis ruled in [x ] Sepsis ruled out [ ] Other explanation ( please specify) Based on your medical judgment of the clinical indicators outlined above please clarify the following: [] Practitioner response [] If unable to determine, please check the box, sign and date. Present On Admission (POA) Indicator: [] Present at the time of admission [] Not present at the time of admission [] Clinically Undetermined In responding to this query, please exercise your independent professional judgment. The fact that a question is asked does not imply that any particular answer is desired or expected. Thank you for your clarification on this documentation. If you have any questions please call:[phone] * Thank you, Beatrice Claros RN, [facility]
[2016-09-04] MEDS: Albuterol-Ipratrop 3 mg / 0.5 (3 ml) UD INH PRN (15:47)
[2016-09-04] MEDS: Insulin Detemir 100 Units/ml Inj SC SCH (21:27)
[2016-09-04] MEDS: Promethazine DM 6.25 mg-15 mg/5 ml Syrup PO PRN (21:33)
[2016-09-05] MEDS: Insulin Regular 100 units/ml SC SCH ×4 (06:42→21:55)
[2016-09-05 06:47] LABS: BASO % 0.1 % (0.0-2.0); EOS % 0.1 % (0.0-4.0); LYMPH # 0.9 K/uL (1.0-4.3); LYMPH % 8.4 % (20.0-40.0); MEAN CELL VOLUME 83.3 fl (81.0-99.0); MEAN CORPUSCULAR HEMOGLOBIN 27.2 pg (27.0-31.0); MEAN CORPUSCULAR HGB CONC 32.7 g/dL (33.0-37.0); MEAN PLATELET VOLUME 6.5 fl (7.2-11.7); MONO # 0.5 K/uL (0.0-0.8); MONO % 4.2 % (0.0-10.0); NEUT # 9.5 K/uL (1.8-7.0); NEUT % 87.2 % (50.0-75.0); PLATELET COUNT 446 K/uL (130-400)
[2016-09-05 07:10] LABS: ALB/GLOB RATIO 0.6 (1.0-2.1); ALKALINE PHOSPHATASE 136 U/L (38-126); ALT/SGPT 24 U/L (9-52); AST/SGOT 16 U/L (14-36); BILIRUBIN,TOTAL 0.5 mg/dl (0.2-1.3); BLOOD UREA NITROGEN 17 mg/dl (7-17); CALCIUM 8.8 mg/dL (8.4-10.2); CARBON DIOXIDE 31 mmol/L (22-30); CHLORIDE 96 mmol/L (98-107); GFR AFRICAN-AMERICAN > 60; GLUCOSE,RANDOM 188 mg/dL (65-105); POTASSIUM 4.2 MMOL/L (3.6-5.0); SODIUM 140 mmol/l (132-148); TOTAL PROTEIN 7.6 G/DL (6.3-8.2)
--- NOTE | 2016-09-05 08:32 | CP.PCM.PN ---
Subjective - Date & Time of Evaluation Date of Evaluation: 09/05/16 Time of Evaluation: 08:32 - Subjective Subjective: doing well on contact/airbrone precautions by ID dr heard. pending afb. wbc trending down. no f/c, n/v/d no comlaints at this time. updated cxr noted. all updatd serologies and c/s noted. Objective - Vital Signs/Intake and Output Vital Signs (last 24 hours): Temp Pulse Resp BP Pulse Ox 98.8 F 94 H 20 102/68 92 L 09/05/16 00:45 09/05/16 00:45 09/05/16 00:45 09/05/16 00:45 09/05/16 00:45 - Medications Medications: Current Medications Al Hydrox/Mg Hydrox/Simethicone (Maalox Plus 30 Ml) 30 ml PO Q6 PRN PRN Reason: Indigestion / Heartburn Albuterol (Ventolin Hfa 90 Mcg/Actuation (8 G)) 1 puff INH Q6 DINO Last Admin: 09/04/16 21:28 Dose: 1 puff Albuterol/Ipratropium (Duoneb 3 Mg/0.5 Mg (3 Ml) Ud) 3 ml INH RQ4 PRN PRN Reason: Shortness of Breath Last Admin: 09/04/16 15:47 Dose: 3 ml Amlodipine Besylate (Norvasc) 10 mg PO DAILY [facility] Last Admin: 09/04/16 09:00 Dose: 10 mg Escitalopram Oxalate (Lexapro) 20 mg PO DAILY [facility] Last Admin: 09/04/16 09:00 Dose: 20 mg Linezolid (Zyvox 600mg/300ml D5w) 300 mls @ 300 mls/hr IVPB Q12 DINO Last Admin: 09/04/16 21:28 Dose: 300 mls/hr Insulin Detemir (Levemir) 6 units SC HS DINO Last Admin: 09/04/16 21:27 Dose: 6 units Insulin Human Regular (Humulin R) 0 units SC ACHS DINO PRN Reason: Protocol Last Admin: 09/05/16 06:42 Dose: 2 unit Oxycodone/Acetaminophen (Percocet 5/325 Mg Tab) 1 tab PO Q4 PRN PRN Reason: Pain, moderate (4-7) Stop: 09/07/16 18:18 Last Admin: 09/04/16 18:52 Dose: 1 tab Pantoprazole Sodium (Protonix Ec Tab) 40 mg PO DAILY [facility] Last Admin: 09/04/16 09:00 Dose: 40 mg Phenol/Menthol (Phenaseptic 1.4% Throat [place]) 1 spry MT TID [facility] Last Admin: 09/04/16 17:06 Dose: 1 spr Promethazine HCl/Dextromethorphan (Phenergan Dm Syrup) 5 ml PO Q6 PRN PRN Reason: Cough Last Admin: 09/04/16 21:33 Dose: 5 ml - Labs Labs: 09/05/16 04:45 09/05/16 04:45 PT 10.3 SECONDS (9.6-11.2) 09/01/16 13:15 INR 0.99 (0.92-1.08) 09/01/16 13:15 - Constitutional Appears: Well, Non-toxic, No Acute Distress - Head Exam Head Exam: ATRAUMATIC, NORMAL INSPECTION, NORMOCEPHALIC - Eye Exam Eye Exam: EOMI, Normal appearance, PERRL Pupil Exam: NORMAL ACCOMODATION, PERRL - ENT Exam ENT Exam: Mucous Membranes Moist, Normal Exam - Neck Exam Neck Exam: Full ROM, Normal Inspection. absent: Lymphadenopathy - Respiratory Exam Respiratory Exam: Rhonchi, Wheezes, NORMAL BREATHING PATTERN - Cardiovascular Exam Cardiovascular Exam: REGULAR RHYTHM, RRR, +S1, +S2. absent: Murmur - GI/Abdominal Exam GI & Abdominal Exam: Soft, Normal Bowel Sounds. absent: Tenderness - Extremities Exam Extremities Exam: Full ROM, Normal Capillary Refill, Normal Inspection. absent : Joint Swelling, Pedal Edema - Back Exam Back Exam: NORMAL INSPECTION - Neurological Exam Neurological Exam: Alert, Awake, CN II-XII Intact, Normal Gait, Oriented x3 - Psychiatric Exam Psychiatric exam: Normal Affect, Normal Mood - Skin Skin Exam: Dry, Intact, Normal Color, Warm Assessment and Plan (1) Hemoptysis Status: Acute (2) Type 2 diabetes mellitus with hyperglycemia Status: Acute (3) DVT prophylaxis Status: Acute (4) Left flank pain Status: Acute (5) Pneumonia Status: Acute - Assessment and Plan (Free Text) Assessment: (1) Hemoptysis Assessment & Plan: r/t abn cxr cont zyvox, cont consults likely robles for iv anbx trend cxr resp tx cough meds contact/airborne precautions pending afb ppd negative Status: Acute (2) Type 2 diabetes mellitus with hyperglycemia Assessment & Plan: cont meds, fsbg, riss, diet Status: Acute (3) DVT prophylaxis Assessment & Plan: scd and ae hose, ambulation Status: Acute (4) Left flank pain Assessment & Plan: r/t abn cxr, pain control Status: Acute (5) Pneumonia Assessment & Plan: see plan for hemoptysis less likely malignancy Status: Acute
[2016-09-05] MEDS: Linezolid 600 mg in D5W 300 ml 300 ML IVPB SCH ×2 (09:00→21:00)
[2016-09-05] MEDS: Pantoprazole 40 mg EC Tab PO SCH (09:00)
[2016-09-05] MEDS: Phenol 1.4% Throat Spray MT SCH ×3 (09:00→16:56)
[2016-09-05] MEDS: Albuterol HFA 90 mcg/actuation (8 g) INH SCH ×3 (10:11→21:59)
[2016-09-05 12:00] LABS: METAMYELOCYTE 2 % (0-0); NEUTROPHIL 77 % (42-75); PLATELET CLUMPS PRESENT; REACTIVE LYMPHOCYTES 2 % (0-0); TOTAL CELLS COUNTED 100
[2016-09-05] MEDS: Oxycodone/Acetaminophen 5/325 mg Tab PO PRN ×2 (14:05→18:11)
--- NOTE | 2016-09-05 17:22 | CP.PCM.PN ---
Subjective - Date & Time of Evaluation Date of Evaluation: 09/05/16 Time of Evaluation: 09:00 - Subjective Subjective: afebrile on Zyvox MRSA + cont rx as per dr Davalos follow CXR possible FOB Objective - Vital Signs/Intake and Output Vital Signs (last 24 hours): Temp Pulse Resp BP Pulse Ox 98.7 F 87 20 151/66 H 93 L 09/05/16 15:54 09/05/16 15:54 09/05/16 15:54 09/05/16 15:54 09/05/16 15:54 - Medications Medications: Current Medications Al Hydrox/Mg Hydrox/Simethicone (Maalox Plus 30 Ml) 30 ml PO Q6 PRN PRN Reason: Indigestion / Heartburn Albuterol (Ventolin Hfa 90 Mcg/Actuation (8 G)) 1 puff INH Q6 DINO Last Admin: 09/05/16 16:56 Dose: 1 puff Albuterol/Ipratropium (Duoneb 3 Mg/0.5 Mg (3 Ml) Ud) 3 ml INH RQ4 PRN PRN Reason: Shortness of Breath Last Admin: 09/04/16 15:47 Dose: 3 ml Amlodipine Besylate (Norvasc) 10 mg PO DAILY [facility] Last Admin: 09/05/16 09:00 Dose: 10 mg Escitalopram Oxalate (Lexapro) 20 mg PO DAILY [facility] Last Admin: 09/05/16 09:00 Dose: 20 mg Linezolid (Zyvox 600mg/300ml D5w) 300 mls @ 300 mls/hr IVPB Q12 DINO Last Admin: 09/05/16 09:00 Dose: 300 mls/hr Insulin Detemir (Levemir) 6 units SC HS [facility]INO Last Admin: 09/04/16 21:27 Dose: 6 units Insulin Human Regular (Humulin R) 0 units SC ACHS DINO PRN Reason: Protocol Last Admin: 09/05/16 16:54 Dose: Not Given Oxycodone/Acetaminophen (Percocet 5/325 Mg Tab) 1 tab PO Q4 PRN PRN Reason: Pain, moderate (4-7) Stop: 09/07/16 18:18 Last Admin: 09/05/16 14:05 Dose: 1 tab Pantoprazole Sodium (Protonix Ec Tab) 40 mg PO DAILY [facility] Last Admin: 09/05/16 09:00 Dose: 40 mg Phenol/Menthol (Phenaseptic 1.4% Throat [place]) 1 spry MT TID [facility] Last Admin: 09/05/16 16:56 Dose: 1 spr Promethazine HCl/Dextromethorphan (Phenergan Dm Syrup) 5 ml PO Q6 PRN PRN Reason: Cough Last Admin: 09/04/16 21:33 Dose: 5 ml - Labs Labs: 09/05/16 04:45 09/05/16 04:45 PT 10.3 SECONDS (9.6-11.2) 09/01/16 13:15 INR 0.99 (0.92-1.08) 09/01/16 13:15 - Constitutional Appears: Non-toxic, Chronically Ill - Head Exam Head Exam: NORMOCEPHALIC - Eye Exam Eye Exam: absent: Scleral icterus - ENT Exam ENT Exam: Mucous Membranes Dry - Neck Exam Neck Exam: absent: Lymphadenopathy - Respiratory Exam Respiratory Exam: Decreased Breath Sounds, Rhonchi - Cardiovascular Exam Cardiovascular Exam: REGULAR RHYTHM, +S1, +S2 - GI/Abdominal Exam GI & Abdominal Exam: Distended, Soft Assessment and Plan (1) COPD exacerbation Status: Acute (2) Hemoptysis Status: Acute (3) Multiple pulmonary nodules Status: Acute - Assessment and Plan (Free Text) Assessment: MRSA pneumonia
[2016-09-05] MEDS: Albuterol-Ipratrop 3 mg / 0.5 (3 ml) UD INH PRN (17:54)
[2016-09-05] MEDS: Insulin Detemir 100 Units/ml Inj SC SCH (21:57)
--- NOTE | 2016-09-06 02:03 | CP.PCM.PN ---
Subjective - Date & Time of Evaluation Date of Evaluation: 09/05/16 Time of Evaluation: 17:00 - Subjective Subjective: Feeling better Objective - Vital Signs/Intake and Output Vital Signs (last 24 hours): Temp Pulse Resp BP Pulse Ox 98.6 F 80 18 134/68 95 09/05/16 23:45 09/05/16 23:45 09/05/16 23:45 09/05/16 23:45 09/05/16 23:45 - Medications Medications: Current Medications Al Hydrox/Mg Hydrox/Simethicone (Maalox Plus 30 Ml) 30 ml PO Q6 PRN PRN Reason: Indigestion / Heartburn Albuterol (Ventolin Hfa 90 Mcg/Actuation (8 G)) 1 puff INH Q6 DINO Last Admin: 09/05/16 21:59 Dose: 1 puff Albuterol/Ipratropium (Duoneb 3 Mg/0.5 Mg (3 Ml) Ud) 3 ml INH RQ4 PRN PRN Reason: Shortness of Breath Last Admin: 09/05/16 17:54 Dose: 3 ml Amlodipine Besylate (Norvasc) 10 mg PO DAILY [facility] Last Admin: 09/05/16 09:00 Dose: 10 mg Escitalopram Oxalate (Lexapro) 20 mg PO DAILY [facility] Last Admin: 09/05/16 09:00 Dose: 20 mg Linezolid (Zyvox 600mg/300ml D5w) 300 mls @ 300 mls/hr IVPB Q12 DINO Last Admin: 09/05/16 21:00 Dose: 300 mls/hr Insulin Detemir (Levemir) 6 units SC HS [facility] Last Admin: 09/05/16 21:57 Dose: 6 units Insulin Human Regular (Humulin R) 0 units SC ACHS IDNO PRN Reason: Protocol Last Admin: 09/05/16 21:55 Dose: Not Given Oxycodone/Acetaminophen (Percocet 5/325 Mg Tab) 1 tab PO Q4 PRN PRN Reason: Pain, moderate (4-7) Stop: 09/07/16 18:18 Last Admin: 09/05/16 18:11 Dose: 1 tab Pantoprazole Sodium (Protonix Ec Tab) 40 mg PO DAILY [facility] Last Admin: 09/05/16 09:00 Dose: 40 mg Phenol/Menthol (Phenaseptic 1.4% Throat [place]) 1 spry MT TID [facility]INO Last Admin: 09/05/16 16:56 Dose: 1 spr Promethazine HCl/Dextromethorphan (Phenergan Dm Syrup) 5 ml PO Q6 PRN PRN Reason: Cough Last Admin: 09/04/16 21:33 Dose: 5 ml - Labs Labs: 09/05/16 04:45 09/05/16 04:45 PT 10.3 SECONDS (9.6-11.2) 09/01/16 13:15 INR 0.99 (0.92-1.08) 09/01/16 13:15 - Head Exam Head Exam: ATRAUMATIC - Eye Exam Eye Exam: Normal appearance - ENT Exam ENT Exam: Mucous Membranes Dry - Respiratory Exam Respiratory Exam: NORMAL BREATHING PATTERN - Cardiovascular Exam Cardiovascular Exam: +S1, +S2 - GI/Abdominal Exam GI & Abdominal Exam: Normal Bowel Sounds - Extremities Exam Extremities Exam: Pedal Edema Assessment and Plan (1) Multiple pulmonary nodules Assessment & Plan: suspect infectious etiology repeat imaging post antibiotics Status: Acute (2) Leukocytosis Assessment & Plan: improving with antibiotics. Status: Acute (3) Anemia Assessment & Plan: chronic disease Status: Acute (4) Elevated serum globulin level Assessment & Plan: monoclonal protein w/u pending Status: Acute
[2016-09-06] MEDS: Albuterol HFA 90 mcg/actuation (8 g) INH SCH ×4 (04:00→22:10)
[2016-09-06 05:34] LABS: BASO % 0.2 % (0.0-2.0); EOS % 0.1 % (0.0-4.0); HEMATOCRIT 34.8 % (34.0-47.0); LYMPH # 1.1 K/uL (1.0-4.3); LYMPH % 9.5 % (20.0-40.0); MEAN CELL VOLUME 83.6 fl (81.0-99.0); MEAN CORPUSCULAR HEMOGLOBIN 27.2 pg (27.0-31.0); MEAN CORPUSCULAR HGB CONC 32.5 g/dL (33.0-37.0); MEAN PLATELET VOLUME 6.3 fl (7.2-11.7); MONO # 0.6 K/uL (0.0-0.8); MONO % 5.1 % (0.0-10.0); NEUT # 10.2 K/uL (1.8-7.0); NEUT % 85.1 % (50.0-75.0); RED CELL DISTRIBUTION WIDTH 17.7 % (11.5-14.5)
[2016-09-06 05:50] LABS: ALB/GLOB RATIO 0.6 (1.0-2.1); ALKALINE PHOSPHATASE 175 U/L (38-126); ALT/SGPT 32 U/L (9-52); AST/SGOT 28 U/L (14-36); BILIRUBIN,TOTAL 0.6 mg/dl (0.2-1.3); BLOOD UREA NITROGEN 18 mg/dl (7-17); CALCIUM 8.8 mg/dL (8.4-10.2); CARBON DIOXIDE 30 mmol/L (22-30); CHLORIDE 97 mmol/L (98-107); GFR AFRICAN-AMERICAN > 60; GLUCOSE,RANDOM 172 mg/dL (65-105); POTASSIUM 4.4 MMOL/L (3.6-5.0); SODIUM 139 mmol/l (132-148); TOTAL PROTEIN 7.9 G/DL (6.3-8.2)
[2016-09-06] MEDS: Insulin Regular 100 units/ml SC SCH ×4 (07:04→22:06)
--- NOTE | 2016-09-06 07:14 | CP.PCM.PN ---
Subjective - Date & Time of Evaluation Date of Evaluation: 09/06/16 Time of Evaluation: 07:14 - Subjective Subjective: denies new complaints. no pain/distress/dyspnea at present. afb 1 negative pending #2 and 3 no f/c, n/v/d bw and consults appriciated Objective - Vital Signs/Intake and Output Vital Signs (last 24 hours): Temp Pulse Resp BP Pulse Ox 98.5 F 93 H 18 123/64 95 09/06/16 05:00 09/06/16 05:00 09/06/16 05:00 09/06/16 05:00 09/06/16 05:00 - Medications Medications: Current Medications Al Hydrox/Mg Hydrox/Simethicone (Maalox Plus 30 Ml) 30 ml PO Q6 PRN PRN Reason: Indigestion / Heartburn Albuterol (Ventolin Hfa 90 Mcg/Actuation (8 G)) 1 puff INH Q6 DINO Last Admin: 09/05/16 21:59 Dose: 1 puff Albuterol/Ipratropium (Duoneb 3 Mg/0.5 Mg (3 Ml) Ud) 3 ml INH RQ4 PRN PRN Reason: Shortness of Breath Last Admin: 09/05/16 17:54 Dose: 3 ml Amlodipine Besylate (Norvasc) 10 mg PO DAILY [facility] Last Admin: 09/05/16 09:00 Dose: 10 mg Escitalopram Oxalate (Lexapro) 20 mg PO DAILY [facility] Last Admin: 09/05/16 09:00 Dose: 20 mg Linezolid (Zyvox 600mg/300ml D5w) 300 mls @ 300 mls/hr IVPB Q12 D[facility] Last Admin: 09/05/16 21:00 Dose: 300 mls/hr Insulin Detemir (Levemir) 6 units SC HS [facility] Last Admin: 09/05/16 21:57 Dose: 6 units Insulin Human Regular (Humulin R) 0 units SC ACHS DINO PRN Reason: Protocol Last Admin: 09/06/16 07:04 Dose: 2 unit Oxycodone/Acetaminophen (Percocet 5/325 Mg Tab) 1 tab PO Q4 PRN PRN Reason: Pain, moderate (4-7) Stop: 09/07/16 18:18 Last Admin: 09/05/16 18:11 Dose: 1 tab Pantoprazole Sodium (Protonix Ec Tab) 40 mg PO DAILY [facility] Last Admin: 09/05/16 09:00 Dose: 40 mg Phenol/Menthol (Phenaseptic 1.4% Throat [place]) 1 spry MT TID [facility] Last Admin: 09/05/16 16:56 Dose: 1 spr Promethazine HCl/Dextromethorphan (Phenergan Dm Syrup) 5 ml PO Q6 PRN PRN Reason: Cough Last Admin: 09/04/16 21:33 Dose: 5 ml - Labs Labs: 09/06/16 04:10 09/06/16 04:10 PT 10.3 SECONDS (9.6-11.2) 09/01/16 13:15 INR 0.99 (0.92-1.08) 09/01/16 13:15 - Constitutional Appears: Well, Non-toxic, No Acute Distress - Head Exam Head Exam: ATRAUMATIC, NORMAL INSPECTION, NORMOCEPHALIC - Eye Exam Eye Exam: EOMI, Normal appearance, PERRL Pupil Exam: NORMAL ACCOMODATION, PERRL - ENT Exam ENT Exam: Mucous Membranes Moist, Normal Exam - Neck Exam Neck Exam: Full ROM, Normal Inspection. absent: Lymphadenopathy - Respiratory Exam Respiratory Exam: Rhonchi, Wheezes, NORMAL BREATHING PATTERN - Cardiovascular Exam Cardiovascular Exam: REGULAR RHYTHM, RRR, +S1, +S2. absent: Murmur - GI/Abdominal Exam GI & Abdominal Exam: Soft, Normal Bowel Sounds. absent: Tenderness - Rectal Exam Rectal Exam: NORMAL INSPECTION - Extremities Exam Extremities Exam: Full ROM, Normal Capillary Refill, Normal Inspection. absent : Joint Swelling, Pedal Edema - Back Exam Back Exam: NORMAL INSPECTION - Neurological Exam Neurological Exam: Alert, Awake, CN II-XII Intact, Normal Gait, Oriented x3 - Psychiatric Exam Psychiatric exam: Normal Affect, Normal Mood - Skin Skin Exam: Dry, Intact, Normal Color, Warm Assessment and Plan (1) Hemoptysis Status: Acute (2) Type 2 diabetes mellitus with hyperglycemia Status: Acute (3) DVT prophylaxis Status: Acute (4) Left flank pain Status: Acute (5) Pneumonia Status: Acute - Assessment and Plan (Free Text) Assessment: (1) Hemoptysis Assessment & Plan: r/t abn cxr cont zyvox, cont consults likely robles for iv anbx trend cxr resp tx cough meds contact/airborne precautions pending afb ppd negative Status: Acute (2) Type 2 diabetes mellitus with hyperglycemia Assessment & Plan: cont meds, fsbg, riss, diet Status: Acute (3) DVT prophylaxis Assessment & Plan: scd and ae hose, ambulation Status: Acute (4) Left flank pain Assessment & Plan: r/t abn cxr, pain control Status: Acute (5) Pneumonia-MRSA positive Assessment & Plan: see plan for hemoptysis less likely malignancy Status: Acute
--- NOTE | 2016-09-06 08:59 | CP.PCM.PN ---
Subjective - Date & Time of Evaluation Date of Evaluation: 09/06/16 Time of Evaluation: 09:04 - Subjective Subjective: SOB AND COUGH LESS NO CHEST PAINS NO HEMOPTYSIS Objective - Vital Signs/Intake and Output Vital Signs (last 24 hours): Temp Pulse Resp BP Pulse Ox 99 F 107 H 20 125/61 96 09/06/16 08:00 09/06/16 08:00 09/06/16 08:00 09/06/16 08:00 09/06/16 08:00 - Medications Medications: Current Medications Al Hydrox/Mg Hydrox/Simethicone (Maalox Plus 30 Ml) 30 ml PO Q6 PRN PRN Reason: Indigestion / Heartburn Albuterol (Ventolin Hfa 90 Mcg/Actuation (8 G)) 1 puff INH Q6 DINO Last Admin: 09/05/16 21:59 Dose: 1 puff Albuterol/Ipratropium (Duoneb 3 Mg/0.5 Mg (3 Ml) Ud) 3 ml INH RQ4 PRN PRN Reason: Shortness of Breath Last Admin: 09/05/16 17:54 Dose: 3 ml Amlodipine Besylate (Norvasc) 10 mg PO DAILY [facility] Last Admin: 09/05/16 09:00 Dose: 10 mg Escitalopram Oxalate (Lexapro) 20 mg PO DAILY [facility] Last Admin: 09/05/16 09:00 Dose: 20 mg Linezolid (Zyvox 600mg/300ml D5w) 300 mls @ 300 mls/hr IVPB Q12 DINO Last Admin: 09/05/16 21:00 Dose: 300 mls/hr Insulin Detemir (Levemir) 6 units SC HS [facility] Last Admin: 09/05/16 21:57 Dose: 6 units Insulin Human Regular (Humulin R) 0 units SC ACHS DINO PRN Reason: Protocol Last Admin: 09/06/16 07:04 Dose: 2 unit Oxycodone/Acetaminophen (Percocet 5/325 Mg Tab) 1 tab PO Q4 PRN PRN Reason: Pain, moderate (4-7) Stop: 09/07/16 18:18 Last Admin: 09/05/16 18:11 Dose: 1 tab Pantoprazole Sodium (Protonix Ec Tab) 40 mg PO DAILY [facility] Last Admin: 09/05/16 09:00 Dose: 40 mg Phenol/Menthol (Phenaseptic 1.4% Throat [place]) 1 spry MT TID [facility] Last Admin: 09/05/16 16:56 Dose: 1 spr Promethazine HCl/Dextromethorphan (Phenergan Dm Syrup) 5 ml PO Q6 PRN PRN Reason: Cough Last Admin: 09/04/16 21:33 Dose: 5 ml - Labs Labs: 09/06/16 04:10 09/06/16 04:10 PT 10.3 SECONDS (9.6-11.2) 09/01/16 13:15 INR 0.99 (0.92-1.08) 09/01/16 13:15 - Constitutional Appears: Chronically Ill - Head Exam Head Exam: ATRAUMATIC, NORMAL INSPECTION, NORMOCEPHALIC - Eye Exam Eye Exam: EOMI, Normal appearance, PERRL Pupil Exam: NORMAL ACCOMODATION, PERRL - ENT Exam ENT Exam: Mucous Membranes Moist, Normal Exam - Neck Exam Neck Exam: Full ROM, Normal Inspection. absent: Lymphadenopathy - Respiratory Exam Respiratory Exam: Decreased Breath Sounds, Prolonged Expiratory Phase, Rales, NORMAL BREATHING PATTERN - Cardiovascular Exam Cardiovascular Exam: REGULAR RHYTHM, +S1, +S2. absent: Murmur - GI/Abdominal Exam GI & Abdominal Exam: Soft, Normal Bowel Sounds. absent: Tenderness - Rectal Exam Rectal Exam: NORMAL INSPECTION - Extremities Exam Extremities Exam: Full ROM, Normal Capillary Refill, Normal Inspection. absent : Joint Swelling, Pedal Edema - Back Exam Back Exam: NORMAL INSPECTION - Neurological Exam Neurological Exam: Alert, Awake, CN II-XII Intact, Normal Gait, Oriented x3 - Psychiatric Exam Psychiatric exam: Normal Affect, Normal Mood - Skin Skin Exam: Dry, Intact, Normal Color, Warm Assessment and Plan - Assessment and Plan (Free Text) Assessment: BILATERAL PNEUMONIA WITH MRSA CXR PICTURE APPEARS COMPARTIBLE WITH STAPH PNEUMATOCELES R/O ENDOCARDITIS WITH SEPTIC EMBOLI DOUBT TB Plan: CONTINUE PRESENT ANTIBIOTIC RX OBTAIN ECHO WWILL NEED BRONCHOSCOPY WITH [facility] IF CXR FINDINGS PERSIST AND ALL AFB STUDIES ARE NON-REVEALING
[2016-09-06] MEDS: Phenol 1.4% Throat Spray MT SCH ×3 (09:56→16:57)
[2016-09-06] MEDS: Oxycodone/Acetaminophen 5/325 mg Tab PO PRN ×3 (09:56→20:39)
[2016-09-06] MEDS: Linezolid 600 mg in D5W 300 ml 300 ML IVPB SCH ×2 (09:57→21:00)
[2016-09-06] MEDS: Pantoprazole 40 mg EC Tab PO SCH (09:57)
--- NOTE | 2016-09-06 13:37 | RAD ---
PROCEDURE: CHEST RADIOGRAPH, 1 VIEW. Upright study 21:45. HISTORY: PNEUMONIA COMPARISON: Multiple serial examinations preceding the most recent study: September 04, 2016. FINDINGS: LUNGS: Marked interval improvement in multifocal and cavitary infiltrates. PLEURA: No pneumothorax or pleural fluid seen. CARDIOVASCULAR: Normal. OSSEOUS STRUCTURES: No significant abnormalities. VISUALIZED UPPER ABDOMEN: Normal. OTHER FINDINGS: None. IMPRESSION: Marked improvement in bilateral primarily lower lobe infiltrates.
[2016-09-06 18:43] LABS: BETA 1 GLOBULIN 0.4 g/dL (0.4-0.6); BETA 2 GLOBULIN 0.6 g/dL (0.2-0.5); GAMMA GLOBULIN 1.9 g/dL (0.8-1.7)
--- NOTE | 2016-09-06 18:44 | CP.PCM.PN ---
Subjective - Date & Time of Evaluation Date of Evaluation: 09/06/16 Time of Evaluation: 08:00 - Subjective Subjective: discussed with dr regan who wants echo and plans possible bronchoscopy- may have infected pneumatoceles which could require 3 weeks rx Objective - Vital Signs/Intake and Output Vital Signs (last 24 hours): Temp Pulse Resp BP Pulse Ox 99.1 F 99 H 20 117/67 96 09/06/16 16:19 09/06/16 16:19 09/06/16 16:19 09/06/16 16:19 09/06/16 16:19 Intake and Output: 09/06/16 09/06/16 06:59 18:59 Intake Total 300 Balance 300 - Medications Medications: Current Medications Al Hydrox/Mg Hydrox/Simethicone (Maalox Plus 30 Ml) 30 ml PO Q6 PRN PRN Reason: Indigestion / Heartburn Albuterol (Ventolin Hfa 90 Mcg/Actuation (8 G)) 1 puff INH Q6 DINO Last Admin: 09/06/16 16:57 Dose: 1 puff Albuterol/Ipratropium (Duoneb 3 Mg/0.5 Mg (3 Ml) Ud) 3 ml INH RQ4 PRN PRN Reason: Shortness of Breath Last Admin: 09/05/16 17:54 Dose: 3 ml Amlodipine Besylate (Norvasc) 10 mg PO DAILY DINO Last Admin: 09/06/16 09:52 Dose: 10 mg Escitalopram Oxalate (Lexapro) 20 mg PO DAILY DINO Last Admin: 09/06/16 09:52 Dose: 20 mg Linezolid (Zyvox 600mg/300ml D5w) 300 mls @ 300 mls/hr IVPB Q12 DINO Last Admin: 09/06/16 09:57 Dose: 300 mls/hr Insulin Detemir (Levemir) 6 units SC HS DINO Last Admin: 09/05/16 21:57 Dose: 6 units Insulin Human Regular (Humulin R) 0 units SC ACHS DINO PRN Reason: Protocol Last Admin: 09/06/16 16:55 Dose: 6 unit Oxycodone/Acetaminophen (Percocet 5/325 Mg Tab) 1 tab PO Q4 PRN PRN Reason: Pain, moderate (4-7) Stop: 09/07/16 18:18 Last Admin: 09/06/16 14:36 Dose: 1 tab Pantoprazole Sodium (Protonix Ec Tab) 40 mg PO DAILY DINO Last Admin: 09/06/16 09:57 Dose: 40 mg Phenol/Menthol (Phenaseptic 1.4% Throat [place]) 1 spry MT TID DINO Last Admin: 09/06/16 16:57 Dose: 1 spr Promethazine HCl/Dextromethorphan (Phenergan Dm Syrup) 5 ml PO Q6 PRN PRN Reason: Cough Last Admin: 09/04/16 21:33 Dose: 5 ml - Labs Labs: 09/06/16 04:10 09/06/16 04:10 PT 10.3 SECONDS (9.6-11.2) 09/01/16 13:15 INR 0.99 (0.92-1.08) 09/01/16 13:15 Assessment and Plan (1) COPD exacerbation Status: Acute (2) Hemoptysis Status: Acute (3) Multiple pulmonary nodules Status: Acute
[2016-09-06] MEDS: Insulin Detemir 100 Units/ml Inj SC SCH (22:09)
[2016-09-07] MEDS: Albuterol HFA 90 mcg/actuation (8 g) INH SCH ×4 (04:22→22:34)
--- NOTE | 2016-09-07 05:24 | CP.PCM.PN ---
Subjective - Date & Time of Evaluation Date of Evaluation: 09/06/16 Time of Evaluation: 12:00 - Subjective Subjective: Feeling better, no hemoptysis Objective - Vital Signs/Intake and Output Vital Signs (last 24 hours): Temp Pulse Resp BP Pulse Ox 98.0 F 85 20 135/81 95 09/07/16 04:57 09/07/16 04:57 09/07/16 04:57 09/07/16 04:57 09/07/16 04:57 Intake and Output: 09/06/16 09/07/16 18:59 06:59 Intake Total 300 Balance 300 - Medications Medications: Current Medications Al Hydrox/Mg Hydrox/Simethicone (Maalox Plus 30 Ml) 30 ml PO Q6 PRN PRN Reason: Indigestion / Heartburn Albuterol (Ventolin Hfa 90 Mcg/Actuation (8 G)) 1 puff INH Q6 DINO Last Admin: 09/07/16 04:22 Dose: 1 puff Albuterol/Ipratropium (Duoneb 3 Mg/0.5 Mg (3 Ml) Ud) 3 ml INH RQ4 PRN PRN Reason: Shortness of Breath Last Admin: 09/05/16 17:54 Dose: 3 ml Amlodipine Besylate (Norvasc) 10 mg PO DAILY DINO Last Admin: 09/06/16 09:52 Dose: 10 mg Escitalopram Oxalate (Lexapro) 20 mg PO DAILY DINO Last Admin: 09/06/16 09:52 Dose: 20 mg Linezolid (Zyvox 600mg/300ml D5w) 300 mls @ 300 mls/hr IVPB Q12 DINO Last Admin: 09/06/16 21:00 Dose: 300 mls/hr Insulin Detemir (Levemir) 6 units SC HS DINO Last Admin: 09/06/16 22:09 Dose: 6 units Insulin Human Regular (Humulin R) 0 units SC ACHS DINO PRN Reason: Protocol Last Admin: 09/06/16 22:06 Dose: Not Given Oxycodone/Acetaminophen (Percocet 5/325 Mg Tab) 1 tab PO Q4 PRN PRN Reason: Pain, moderate (4-7) Stop: 09/07/16 18:18 Last Admin: 09/06/16 20:39 Dose: 1 tab Pantoprazole Sodium (Protonix Ec Tab) 40 mg PO DAILY [facility] Last Admin: 09/06/16 09:57 Dose: 40 mg Phenol/Menthol (Phenaseptic 1.4% Throat [place]) 1 spry MT TID [facility] Last Admin: 09/06/16 16:57 Dose: 1 spr Promethazine HCl/Dextromethorphan (Phenergan Dm Syrup) 5 ml PO Q6 PRN PRN Reason: Cough Last Admin: 09/04/16 21:33 Dose: 5 ml - Labs Labs: 09/06/16 04:10 09/06/16 04:10 PT 10.3 SECONDS (9.6-11.2) 09/01/16 13:15 INR 0.99 (0.92-1.08) 09/01/16 13:15 - Head Exam Head Exam: ATRAUMATIC - Eye Exam Eye Exam: Normal appearance - ENT Exam ENT Exam: Mucous Membranes Dry - Respiratory Exam Respiratory Exam: NORMAL BREATHING PATTERN - Cardiovascular Exam Cardiovascular Exam: +S1, +S2 - GI/Abdominal Exam GI & Abdominal Exam: Normal Bowel Sounds Assessment and Plan (1) Multiple pulmonary nodules Assessment & Plan: undergoing infectious treatment improvement in symptoms malignancy less likely but will require outpatient imaging to document resolution of lung nodules Status: Acute (2) Leukocytosis Assessment & Plan: mild, improving with abx Status: Acute (3) Anemia Assessment & Plan: anemia of chronic disease Status: Acute (4) Elevated serum globulin level Assessment & Plan: monoclonal protein w/u sent and pending Status: Acute
[2016-09-07] MEDS: Insulin Regular 100 units/ml SC SCH ×4 (06:36→22:32)
[2016-09-07 06:47] LABS: HEMATOCRIT 34.8 % (34.0-47.0); MEAN CELL VOLUME 83.5 fl (81.0-99.0); MEAN CORPUSCULAR HEMOGLOBIN 27.6 pg (27.0-31.0); RED CELL DISTRIBUTION WIDTH 17.4 % (11.5-14.5); WHITE BLOOD COUNT 14.3 K/uL (4.8-10.8)
[2016-09-07 06:52] LABS: BLOOD UREA NITROGEN 19 mg/dl (7-17); CALCIUM 9.2 mg/dL (8.4-10.2); CARBON DIOXIDE 31 mmol/L (22-30); CHLORIDE 98 mmol/L (98-107); GFR AFRICAN-AMERICAN > 60; GLUCOSE,RANDOM 174 mg/dL (65-105); POTASSIUM 4.3 MMOL/L (3.6-5.0); SODIUM 140 mmol/l (132-148)
--- NOTE | 2016-09-07 08:36 | CP.PCM.PN ---
Subjective - Date & Time of Evaluation Date of Evaluation: 09/07/16 Time of Evaluation: 08:36 - Subjective Subjective: see dictated note pending 3rd afb no distress Objective - Vital Signs/Intake and Output Vital Signs (last 24 hours): Temp Pulse Resp BP Pulse Ox 98.0 F 89 20 117/70 97 09/07/16 08:00 09/07/16 08:00 09/07/16 08:00 09/07/16 08:00 09/07/16 08:00 - Medications Medications: Current Medications Al Hydrox/Mg Hydrox/Simethicone (Maalox Plus 30 Ml) 30 ml PO Q6 PRN PRN Reason: Indigestion / Heartburn Albuterol (Ventolin Hfa 90 Mcg/Actuation (8 G)) 1 puff INH Q6 DINO Last Admin: 09/07/16 04:22 Dose: 1 puff Albuterol/Ipratropium (Duoneb 3 Mg/0.5 Mg (3 Ml) Ud) 3 ml INH RQ4 PRN PRN Reason: Shortness of Breath Last Admin: 09/05/16 17:54 Dose: 3 ml Amlodipine Besylate (Norvasc) 10 mg PO DAILY [facility] Last Admin: 09/06/16 09:52 Dose: 10 mg Escitalopram Oxalate (Lexapro) 20 mg PO DAILY [facility] Last Admin: 09/06/16 09:52 Dose: 20 mg Linezolid (Zyvox 600mg/300ml D5w) 300 mls @ 300 mls/hr IVPB Q12 DINO Last Admin: 09/06/16 21:00 Dose: 300 mls/hr Insulin Detemir (Levemir) 6 units SC HS [facility] Last Admin: 09/06/16 22:09 Dose: 6 units Insulin Human Regular (Humulin R) 0 units SC ACHS DINO PRN Reason: Protocol Last Admin: 09/07/16 06:36 Dose: 2 unit Oxycodone/Acetaminophen (Percocet 5/325 Mg Tab) 1 tab PO Q4 PRN PRN Reason: Pain, moderate (4-7) Stop: 09/07/16 18:18 Last Admin: 09/06/16 20:39 Dose: 1 tab Pantoprazole Sodium (Protonix Ec Tab) 40 mg PO DAILY [facility] Last Admin: 09/06/16 09:57 Dose: 40 mg Phenol/Menthol (Phenaseptic 1.4% Throat [place]) 1 spry MT TID DINO Last Admin: 09/06/16 16:57 Dose: 1 spr Promethazine HCl/Dextromethorphan (Phenergan Dm Syrup) 5 ml PO Q6 PRN PRN Reason: Cough Last Admin: 09/04/16 21:33 Dose: 5 ml - Labs Labs: 09/07/16 05:50 09/07/16 05:50 PT 10.3 SECONDS (9.6-11.2) 09/01/16 13:15 INR 0.99 (0.92-1.08) 09/01/16 13:15 Assessment and Plan (1) Hemoptysis Status: Acute (2) Type 2 diabetes mellitus with hyperglycemia Status: Acute (3) DVT prophylaxis Status: Acute (4) Left flank pain Status: Acute (5) Pneumonia Status: Acute
[2016-09-07] MEDS: Oxycodone/Acetaminophen 5/325 mg Tab PO PRN ×3 (09:44→18:13)
[2016-09-07] MEDS: Linezolid 600 mg in D5W 300 ml 300 ML IVPB SCH ×2 (09:45→22:35)
[2016-09-07] MEDS: Pantoprazole 40 mg EC Tab PO SCH (09:46)
[2016-09-07] MEDS: Phenol 1.4% Throat Spray MT SCH ×3 (09:46→16:56)
--- NOTE | 2016-09-07 13:18 | PN ---
DATE: 09/07/2016 The patient is doing well, in bed. Remains in contact isolation. Two negative AFBs are noted. Thir d AFB is pending for today. All consults are appreciated. All updated blood work and imaging has be en reviewed. White count is 15,000 today. Denies any new complaints. Still has some left flank olu n, especially increased with deep respiration and cough. REVIEW OF SYSTEMS: Left-sided flank pain with deep respiration and coughing. Still having productiv e cough. No more hemoptysis. No fever, chills, nausea, vomiting or diarrhea. PHYSICAL EXAMINATION: GENERAL: Alert and oriented. HEART: Regular rate and rhythm with no murmurs, rubs, or gallops. LUNGS: Diffuse wheezing and rhonchi. ABDOMEN: Soft, nontender. Bowel sounds x 4. EXTREMITIES: Distal pulses, motor sensation intact. Cap refill is brisk. DIAGNOSES AND PLAN: 1. Methicillin-resistant Staphylococcus aureus pneumonia. Continue antibiotics. Continue consults. Continue nebulizer treatment. Continue cough syrup. Pending third AFB to come off isolation. Dis charge planning in progress. 2. Deep venous thrombosis prophylaxis. Sequential compression devices, anti-embolism hose, ambulati on. 3. Diabetes type 2. Continue meds, fingersticks, sliding scale and continue dietary control. We will continue to monitor the patient closely. Jp DUFFY cc: [id number] TT: 09/07/2016 13:18:38 Confirmation # [id number] Dictation # [id number] en
--- NOTE | 2016-09-07 14:37 | CP.PCM.PN ---
Subjective - Date & Time of Evaluation Date of Evaluation: 09/07/16 Time of Evaluation: 07:00 - Subjective Subjective: CXR STILL SHOWS NODULAR INFILTRATES dr regan is recommending cont of rx Objective - Vital Signs/Intake and Output Vital Signs (last 24 hours): Temp Pulse Resp BP Pulse Ox 98.8 F 91 H 18 118/74 95 09/07/16 12:23 09/07/16 12:23 09/07/16 12:23 09/07/16 12:23 09/07/16 12:23 - Medications Medications: Current Medications Al Hydrox/Mg Hydrox/Simethicone (Maalox Plus 30 Ml) 30 ml PO Q6 PRN PRN Reason: Indigestion / Heartburn Albuterol (Ventolin Hfa 90 Mcg/Actuation (8 G)) 1 puff INH Q6 DINO Last Admin: 09/07/16 10:15 Dose: 1 puff Albuterol/Ipratropium (Duoneb 3 Mg/0.5 Mg (3 Ml) Ud) 3 ml INH RQ4 PRN PRN Reason: Shortness of Breath Last Admin: 09/05/16 17:54 Dose: 3 ml Amlodipine Besylate (Norvasc) 10 mg PO DAILY DINO Last Admin: 09/07/16 09:46 Dose: 10 mg Escitalopram Oxalate (Lexapro) 20 mg PO DAILY DINO Last Admin: 09/07/16 09:47 Dose: 20 mg Linezolid (Zyvox 600mg/300ml D5w) 300 mls @ 300 mls/hr IVPB Q12 DINO Last Admin: 09/07/16 09:45 Dose: 300 mls/hr Insulin Detemir (Levemir) 6 units SC HS DINO Last Admin: 09/06/16 22:09 Dose: 6 units Insulin Human Regular (Humulin R) 0 units SC ACHS DINO PRN Reason: Protocol Last Admin: 09/07/16 13:35 Dose: 4 unit Oxycodone/Acetaminophen (Percocet 5/325 Mg Tab) 1 tab PO Q4 PRN PRN Reason: Pain, moderate (4-7) Stop: 09/07/16 18:18 Last Admin: 09/07/16 13:58 Dose: 1 tab Pantoprazole Sodium (Protonix Ec Tab) 40 mg PO DAILY DINO Last Admin: 09/07/16 09:46 Dose: 40 mg Phenol/Menthol (Phenaseptic 1.4% Throat [place]) 1 spry MT TID DINO Last Admin: 09/07/16 13:59 Dose: Not Given Promethazine HCl/Dextromethorphan (Phenergan Dm Syrup) 5 ml PO Q6 PRN PRN Reason: Cough Last Admin: 09/04/16 21:33 Dose: 5 ml - Labs Labs: 09/07/16 05:50 09/07/16 05:50 PT 10.3 SECONDS (9.6-11.2) 09/01/16 13:15 INR 0.99 (0.92-1.08) 09/01/16 13:15 - Constitutional Appears: Non-toxic, Cachectic, Chronically Ill - Head Exam Head Exam: NORMOCEPHALIC - Eye Exam Eye Exam: PERRL. absent: Scleral icterus - ENT Exam ENT Exam: Mucous Membranes Dry - Neck Exam Neck Exam: absent: Lymphadenopathy - Respiratory Exam Respiratory Exam: Decreased Breath Sounds, Prolonged Expiratory Phase, Rales, Rhonchi - Cardiovascular Exam Cardiovascular Exam: REGULAR RHYTHM, +S1, +S2 - GI/Abdominal Exam GI & Abdominal Exam: Distended, Soft. absent: Tenderness - Rectal Exam Rectal Exam: Deferred - Exam Exam: NORMAL INSPECTION - Extremities Exam Extremities Exam: absent: Calf Tenderness, Pedal Edema - Back Exam Back Exam: absent: CVA tenderness (L), CVA tenderness (R), paraspinal tenderness - Neurological Exam Neurological Exam: Alert, Awake, Oriented x3 Assessment and Plan (1) COPD exacerbation Status: Acute (2) Hemoptysis Status: Acute (3) Multiple pulmonary nodules Status: Acute - Assessment and Plan (Free Text) Assessment: cont iv antibiotic rx for 3 weeks
--- NOTE | 2016-09-07 17:40 | CARD ---
APPROVED REPORT EXAM: Two-dimensional and M-mode echocardiogram with Doppler and color Doppler. Other Information Quality : Technically LimitedRhythm : INDICATION 2D DIMENSIONS IVSd0.87 (0.7-1.1cm)LVDd3.80 (3.9-5.9cm) PWd0.76 (0.7-1.1cm)IVSs1.35 (0.8-1.2cm) LVDs2.30 (2.5-4.0cm)FS (%) 39.4 % PWs1.37 (0.8-1.2cm) M-Mode DIMENSIONS Left Atrium (MM)4.05 (2.5-4.0cm)Aortic Root2.96 (2.2-3.7cm) Aortic Cusp Exc.1.39 (1.5-2.0cm) Aortic Valve AoV Peak Juvhxtox400.0cm/Nat Peak GR.13mmHgLVOT Peak Maxkjlal756.7cm/s Mitral Valve MV E Bonlhydh29.1cm/sMV DECEL SRPM230olCZ A Yyyglebc05.3cm/s MV RBT47ykQ/A ratio1.0MVA (PHT)2.67cm2 TDI Lateral E' Peak V9.88cm/sMedial E' Peak V8.92cm/sE/Lateral E'6.2 E/Medial E'6.8 Pulmonary Valve PV Peak Tuifwykh254.7cm/s Tricuspid Valve TR Peak Xigmkeed589zy/sRAP UROYTMKG47xqZhJK Peak Gr.5mmHg TAHF44prPt LEFT VENTRICLE The left ventricle is normal size. There is normal left ventricular wall thickness. The left ventricular function is normal. The left ventricular ejection fraction is 60% There is normal LV segmental wall motion. The left ventricular diastolic function is normal. No left ventricle thrombus noted on this study. There is no ventricular septal defect visualized. There is no left ventricular aneurysm. There is no mass noted in the left ventricle. RIGHT VENTRICLE The right ventricle is normal size. There is normal right ventricular wall thickness. The right ventricular systolic function is normal. ATRIA The left atrium size is normal. The right atrium size is normal. The interatrial septum is intact with no evidence for an atrial septal defect. AORTIC VALVE The aortic valve is mildly to moderately sclerotic. No aortic regurgitation is present. There is no aortic valvular stenosis. There is no aortic valvular vegetation. MITRAL VALVE The mitral valve is normal in structure and function. There is no evidence of mitral valve prolapse. There is no mitral valve stenosis. There is no mitral valve regurgitation noted. TRICUSPID VALVE The tricuspid valve is normal in structure and function. There is no tricuspid valve regurgitation noted. There is no tricuspid valve prolapse or vegetation. There is no tricuspid valve stenosis. PULMONIC VALVE The pulmonary valve is normal in structure and function. There is no pulmonic valvular regurgitation. There is no pulmonic valvular stenosis. GREAT VESSELS The aortic root is normal in size. The ascending aorta is normal in size. The IVC is normal in size and collapses >50% with inspiration. PERICARDIAL EFFUSION The pericardium appears normal. There is no pleural effusion. <Conclusion> Technically Limited Study due to Poor Acoustic Windows Normal LV Function Aortic Valve Sclerosis
[2016-09-07] MEDS: Insulin Detemir 100 Units/ml Inj SC SCH (22:33)
[2016-09-08] MEDS ORDERED: Oxycodone/Acetaminophen 5/325 mg Tab PO ONE (06:07)
[2016-09-08] MEDS: Albuterol HFA 90 mcg/actuation (8 g) INH SCH ×4 (06:09→22:35)
[2016-09-08] MEDS: Promethazine DM 6.25 mg-15 mg/5 ml Syrup PO PRN (06:09)
[2016-09-08 06:12] LABS: HEMATOCRIT 33.9 % (34.0-47.0); MEAN CELL VOLUME 83.4 fl (81.0-99.0); MEAN CORPUSCULAR HEMOGLOBIN 27.6 pg (27.0-31.0); MEAN CORPUSCULAR HGB CONC 33.1 g/dL (33.0-37.0); RED CELL DISTRIBUTION WIDTH 17.8 % (11.5-14.5); WHITE BLOOD COUNT 14.3 K/uL (4.8-10.8)
[2016-09-08] MEDS: Insulin Regular 100 units/ml SC SCH ×5 (08:30→22:35)
--- NOTE | 2016-09-08 08:55 | CP.PCM.PN ---
Subjective - Date & Time of Evaluation Date of Evaluation: 09/08/16 Time of Evaluation: 08:55 - Subjective Subjective: doing well, no complaints. no f/c n/v/d penidng palcement. 3 wks iv anbx per ID bw noted. 3x afb negative. airborn precautions dc Objective - Vital Signs/Intake and Output Vital Signs (last 24 hours): Temp Pulse Resp BP Pulse Ox 97.6 F 87 18 139/78 94 L 09/08/16 07:56 09/08/16 07:56 09/08/16 07:56 09/08/16 07:56 09/08/16 07:56 - Medications Medications: Current Medications Al Hydrox/Mg Hydrox/Simethicone (Maalox Plus 30 Ml) 30 ml PO Q6 PRN PRN Reason: Indigestion / Heartburn Albuterol (Ventolin Hfa 90 Mcg/Actuation (8 G)) 1 puff INH Q6 [facility] Last Admin: 09/08/16 06:09 Dose: 1 puff Albuterol/Ipratropium (Duoneb 3 Mg/0.5 Mg (3 Ml) Ud) 3 ml INH RQ4 PRN PRN Reason: Shortness of Breath Last Admin: 09/05/16 17:54 Dose: 3 ml Amlodipine Besylate (Norvasc) 10 mg PO DAILY [facility] Last Admin: 09/07/16 09:46 Dose: 10 mg Escitalopram Oxalate (Lexapro) 20 mg PO DAILY [facility] Last Admin: 09/07/16 09:47 Dose: 20 mg Linezolid (Zyvox 600mg/300ml D5w) 300 mls @ 300 mls/hr IVPB Q12 DINO Last Admin: 09/07/16 22:35 Dose: 300 mls/hr Insulin Detemir (Levemir) 6 units SC HS [facility] Last Admin: 09/07/16 22:33 Dose: 6 units Insulin Human Regular (Humulin R) 0 units SC ACHS DINO PRN Reason: Protocol Last Admin: 09/07/16 22:32 Dose: Not Given Pantoprazole Sodium (Protonix Ec Tab) 40 mg PO DAILY [facility] Last Admin: 09/07/16 09:46 Dose: 40 mg Phenol/Menthol (Phenaseptic 1.4% Throat [place]) 1 spry MT TID DINO Last Admin: 09/07/16 16:56 Dose: Not Given Promethazine HCl/Dextromethorphan (Phenergan Dm Syrup) 5 ml PO Q6 PRN PRN Reason: Cough Last Admin: 09/08/16 06:09 Dose: 5 ml - Labs Labs: 09/08/16 05:53 09/07/16 05:50 PT 10.3 SECONDS (9.6-11.2) 09/01/16 13:15 INR 0.99 (0.92-1.08) 09/01/16 13:15 - Constitutional Appears: Well, Non-toxic, No Acute Distress - Head Exam Head Exam: ATRAUMATIC, NORMAL INSPECTION, NORMOCEPHALIC - Eye Exam Eye Exam: EOMI, Normal appearance, PERRL Pupil Exam: NORMAL ACCOMODATION, PERRL - ENT Exam ENT Exam: Mucous Membranes Moist, Normal Exam - Neck Exam Neck Exam: Full ROM, Normal Inspection. absent: Lymphadenopathy - Respiratory Exam Respiratory Exam: Rhonchi, Wheezes, NORMAL BREATHING PATTERN Additional comments: improving - Cardiovascular Exam Cardiovascular Exam: REGULAR RHYTHM, RRR, +S1, +S2. absent: Murmur - GI/Abdominal Exam GI & Abdominal Exam: Soft, Normal Bowel Sounds. absent: Tenderness - Extremities Exam Extremities Exam: Full ROM, Normal Capillary Refill, Normal Inspection. absent : Joint Swelling, Pedal Edema - Back Exam Back Exam: NORMAL INSPECTION - Neurological Exam Neurological Exam: Alert, Awake, CN II-XII Intact, Normal Gait, Oriented x3 - Psychiatric Exam Psychiatric exam: Normal Affect, Normal Mood - Skin Skin Exam: Dry, Intact, Normal Color, Warm Assessment and Plan (1) Hemoptysis Status: Acute (2) Type 2 diabetes mellitus with hyperglycemia Status: Acute (3) DVT prophylaxis Status: Acute (4) Left flank pain Status: Acute (5) Pneumonia Status: Acute - Assessment and Plan (Free Text) Assessment: (1) Hemoptysis Assessment & Plan: r/t abn cxr cont zyvox, cont consults likely robles for iv anbx trend cxr resp tx cough meds contact for mrsa sputum /airborne precautions dc ppd negative x 3 wks, ?? picc Status: Acute (2) Type 2 diabetes mellitus with hyperglycemia Assessment & Plan: cont meds, fsbg, riss, diet Status: Acute (3) DVT prophylaxis Assessment & Plan: scd and ae hose, ambulation Status: Acute (4) Left flank pain Assessment & Plan: r/t abn cxr, pain control Status: Acute (5) Pneumonia-MRSA positive Assessment & Plan: see plan for hemoptysis less likely malignancy Status: Acute
[2016-09-08] MEDS: Pantoprazole 40 mg EC Tab PO SCH (09:50)
[2016-09-08] MEDS: Phenol 1.4% Throat Spray MT SCH ×3 (10:00→17:33)
[2016-09-08] MEDS: Oxycodone/Acetaminophen 5/325 mg Tab PO PRN ×4 (10:48→23:03)
--- NOTE | 2016-09-08 10:48 | CP.PCM.PN ---
Subjective - Date & Time of Evaluation Date of Evaluation: 09/08/16 Time of Evaluation: 10:49 - Subjective Subjective: SOB [id number] NO RECURRENCE OF HEMOPTYSIS NO CHEST PAINS Objective - Vital Signs/Intake and Output Vital Signs (last 24 hours): Temp Pulse Resp BP Pulse Ox 97.6 F 87 18 139/78 94 L 09/08/16 07:56 09/08/16 07:56 09/08/16 07:56 09/08/16 07:56 09/08/16 07:56 - Medications Medications: Current Medications Al Hydrox/Mg Hydrox/Simethicone (Maalox Plus 30 Ml) 30 ml PO Q6 PRN PRN Reason: Indigestion / Heartburn Albuterol (Ventolin Hfa 90 Mcg/Actuation (8 G)) 1 puff INH Q6 DINO Last Admin: 09/08/16 06:09 Dose: 1 puff Albuterol/Ipratropium (Duoneb 3 Mg/0.5 Mg (3 Ml) Ud) 3 ml INH RQ4 PRN PRN Reason: Shortness of Breath Last Admin: 09/05/16 17:54 Dose: 3 ml Amlodipine Besylate (Norvasc) 10 mg PO DAILY [facility] Last Admin: 09/07/16 09:46 Dose: 10 mg Escitalopram Oxalate (Lexapro) 20 mg PO DAILY [facility] Last Admin: 09/07/16 09:47 Dose: 20 mg Linezolid (Zyvox 600mg/300ml D5w) 300 mls @ 300 mls/hr IVPB Q12 DINO Last Admin: 09/07/16 22:35 Dose: 300 mls/hr Insulin Detemir (Levemir) 6 units SC HS DINO Last Admin: 09/07/16 22:33 Dose: 6 units Insulin Human Regular (Humulin R) 0 units SC ACHS DINO PRN Reason: Protocol Last Admin: 09/08/16 08:30 Dose: Not Given Oxycodone/Acetaminophen (Percocet 5/325 Mg Tab) 1 tab PO Q4 PRN PRN Reason: Pain, moderate (4-7) Stop: 09/11/16 10:19 Pantoprazole Sodium (Protonix Ec Tab) 40 mg PO DAILY [facility] Last Admin: 09/07/16 09:46 Dose: 40 mg Phenol/Menthol (Phenaseptic 1.4% Throat [place]) 1 spry MT TID DINO Last Admin: 09/07/16 16:56 Dose: Not Given Promethazine HCl/Dextromethorphan (Phenergan Dm Syrup) 5 ml PO Q6 PRN PRN Reason: Cough Last Admin: 09/08/16 06:09 Dose: 5 ml - Labs Labs: 09/08/16 05:53 09/07/16 05:50 PT 10.3 SECONDS (9.6-11.2) 09/01/16 13:15 INR 0.99 (0.92-1.08) 09/01/16 13:15 - Constitutional Appears: No Acute Distress - Head Exam Head Exam: ATRAUMATIC, NORMAL INSPECTION, NORMOCEPHALIC - Eye Exam Eye Exam: EOMI, Normal appearance, PERRL Pupil Exam: NORMAL ACCOMODATION, PERRL - ENT Exam ENT Exam: Mucous Membranes Moist, Normal Exam - Neck Exam Neck Exam: Full ROM, Normal Inspection. absent: Lymphadenopathy - Respiratory Exam Respiratory Exam: Rales, NORMAL BREATHING PATTERN - Cardiovascular Exam Cardiovascular Exam: REGULAR RHYTHM, +S1, +S2. absent: Murmur - GI/Abdominal Exam GI & Abdominal Exam: Soft, Normal Bowel Sounds. absent: Tenderness - Rectal Exam Rectal Exam: NORMAL INSPECTION - Extremities Exam Extremities Exam: Full ROM, Normal Capillary Refill, Normal Inspection. 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
[2016-09-08] MEDS: Linezolid 600 mg in D5W 300 ml 300 ML IVPB SCH ×2 (10:50→20:53)
[2016-09-08] MEDS: Insulin Detemir 100 Units/ml Inj SC SCH (22:34)
[2016-09-09] MEDS: Albuterol HFA 90 mcg/actuation (8 g) INH SCH ×4 (03:50→21:19)
[2016-09-09] MEDS: Oxycodone/Acetaminophen 5/325 mg Tab PO PRN ×3 (06:12→20:12)
[2016-09-09] MEDS: Insulin Regular 100 units/ml SC SCH ×4 (06:35→21:20)
[2016-09-09 07:27] LABS: ALB/GLOB RATIO 0.6 (1.0-2.1); ALKALINE PHOSPHATASE 194 U/L (38-126); ALT/SGPT 38 U/L (9-52); AST/SGOT 33 U/L (14-36); BILIRUBIN,TOTAL 0.5 mg/dl (0.2-1.3); BLOOD UREA NITROGEN 20 mg/dl (7-17); CALCIUM 9.2 mg/dL (8.4-10.2); CARBON DIOXIDE 28 mmol/L (22-30); CHLORIDE 100 mmol/L (98-107); GFR AFRICAN-AMERICAN > 60; GLUCOSE,RANDOM 127 mg/dL (65-105); POTASSIUM 4.1 MMOL/L (3.6-5.0); SODIUM 139 mmol/l (132-148); TOTAL PROTEIN 7.6 G/DL (6.3-8.2)
[2016-09-09 07:34] LABS: BASO % 0.1 % (0.0-2.0); EOS % 0.2 % (0.0-4.0); HEMATOCRIT 32.7 % (34.0-47.0); LYMPH # 1.7 K/uL (1.0-4.3); LYMPH % 11.2 % (20.0-40.0); MEAN CORPUSCULAR HEMOGLOBIN 27.3 pg (27.0-31.0); MEAN CORPUSCULAR HGB CONC 32.9 g/dL (33.0-37.0); MEAN PLATELET VOLUME 6.2 fl (7.2-11.7); MONO # 0.5 K/uL (0.0-0.8); MONO % 3.4 % (0.0-10.0); NEUT # 12.8 K/uL (1.8-7.0); NEUT % 85.1 % (50.0-75.0); NRBC % 0.1 % (0.0-0.0); RED CELL DISTRIBUTION WIDTH 17.2 % (11.5-14.5)
[2016-09-09] MEDS: Pantoprazole 40 mg EC Tab PO SCH (08:31)
[2016-09-09] MEDS: Phenol 1.4% Throat Spray MT SCH ×3 (08:32→16:22)
[2016-09-09] MEDS: Linezolid 600 mg in D5W 300 ml 300 ML IVPB SCH ×2 (08:39→20:07)
--- NOTE | 2016-09-09 09:24 | CP.PCM.PN ---
Subjective - Date & Time of Evaluation Date of Evaluation: 09/09/16 Time of Evaluation: 09:24 - Subjective Subjective: no complaints/distress. still w/ cough-dry at present. no f/c, n/v/d pending pulm clearance for dc to snf/robles for 2 more wks iv anbx bw nad imaging noted Objective - Vital Signs/Intake and Output Vital Signs (last 24 hours): Temp Pulse Resp BP Pulse Ox 97.3 F L 84 18 144/82 94 L 09/09/16 08:05 09/09/16 08:32 09/09/16 08:05 09/09/16 08:32 09/09/16 08:05 - Medications Medications: Current Medications Al Hydrox/Mg Hydrox/Simethicone (Maalox Plus 30 Ml) 30 ml PO Q6 PRN PRN Reason: Indigestion / Heartburn Albuterol (Ventolin Hfa 90 Mcg/Actuation (8 G)) 1 puff INH Q6 DINO Last Admin: 09/09/16 09:09 Dose: 1 puff Albuterol/Ipratropium (Duoneb 3 Mg/0.5 Mg (3 Ml) Ud) 3 ml INH RQ4 PRN PRN Reason: Shortness of Breath Last Admin: 09/05/16 17:54 Dose: 3 ml Amlodipine Besylate (Norvasc) 10 mg PO DAILY DINO Last Admin: 09/09/16 08:32 Dose: 10 mg Escitalopram Oxalate (Lexapro) 20 mg PO DAILY DINO Last Admin: 09/09/16 08:31 Dose: 20 mg Linezolid (Zyvox 600mg/300ml D5w) 300 mls @ 300 mls/hr IVPB Q12 DINO Last Admin: 09/09/16 08:39 Dose: 300 mls/hr Insulin Detemir (Levemir) 6 units SC HS DINO Last Admin: 09/08/16 22:34 Dose: 6 units Insulin Human Regular (Humulin R) 0 units SC ACHS DINO PRN Reason: Protocol Last Admin: 09/09/16 06:35 Dose: Not Given Oxycodone/Acetaminophen (Percocet 5/325 Mg Tab) 1 tab PO Q4 PRN PRN Reason: Pain, moderate (4-7) Stop: 09/11/16 10:19 Last Admin: 09/09/16 06:12 Dose: 1 tab Pantoprazole Sodium (Protonix Ec Tab) 40 mg PO DAILY [facility] Last Admin: 09/09/16 08:31 Dose: 40 mg Phenol/Menthol (Phenaseptic 1.4% Throat [place]) 1 spry MT TID [facility] Last Admin: 09/09/16 08:32 Dose: 1 spr Promethazine HCl/Dextromethorphan (Phenergan Dm Syrup) 5 ml PO Q6 PRN PRN Reason: Cough Last Admin: 09/08/16 06:09 Dose: 5 ml - Labs Labs: 09/09/16 05:10 09/09/16 05:10 PT 10.3 SECONDS (9.6-11.2) 09/01/16 13:15 INR 0.99 (0.92-1.08) 09/01/16 13:15 - Constitutional Appears: Well, Non-toxic, No Acute Distress - Head Exam Head Exam: ATRAUMATIC, NORMAL INSPECTION, NORMOCEPHALIC - Eye Exam Eye Exam: EOMI, Normal appearance, PERRL Pupil Exam: NORMAL ACCOMODATION, PERRL - ENT Exam ENT Exam: Mucous Membranes Moist, Normal Exam - Neck Exam Neck Exam: Full ROM, Normal Inspection. absent: Lymphadenopathy - Respiratory Exam Respiratory Exam: Wheezes, NORMAL BREATHING PATTERN Additional comments: improved - Cardiovascular Exam Cardiovascular Exam: REGULAR RHYTHM, RRR, +S1, +S2. absent: Murmur - GI/Abdominal Exam GI & Abdominal Exam: Soft, Normal Bowel Sounds. absent: Tenderness - Extremities Exam Extremities Exam: Full ROM, Normal Capillary Refill, Normal Inspection. absent : Joint Swelling, Pedal Edema - Back Exam Back Exam: NORMAL INSPECTION - Neurological Exam Neurological Exam: Alert, Awake, CN II-XII Intact, Normal Gait, Oriented x3 - Psychiatric Exam Psychiatric exam: Normal Affect, Normal Mood - Skin Skin Exam: Dry, Intact, Normal Color, Warm Assessment and Plan (1) Hemoptysis Status: Acute (2) Type 2 diabetes mellitus with hyperglycemia Status: Acute (3) DVT prophylaxis Status: Acute (4) Left flank pain Status: Acute (5) Pneumonia Status: Acute - Assessment and Plan (Free Text) Assessment: (1) Hemoptysis Assessment & Plan: r/t abn cxr cont zyvox, cont consults likely [facility] for iv anbx trend cxr resp tx cough meds contact for mrsa sputum /airborne precautions dc ppd negative x 3 wks, ?? picc Status: Acute (2) Type 2 diabetes mellitus with hyperglycemia Assessment & Plan: cont meds, fsbg, riss, diet Status: Acute (3) DVT prophylaxis Assessment & Plan: scd and ae hose, ambulation Status: Acute (4) Left flank pain Assessment & Plan: r/t abn cxr, pain control Status: Acute (5) Pneumonia-MRSA positive Assessment & Plan: see plan for hemoptysis less likely malignancy Status: Acute ?? need for broncoscopy per pulm saf/tcu/snf for 2 more wks iv anbx-zyvox per id
--- NOTE | 2016-09-09 09:57 | RAD ---
HISTORY: Pneumonia COMPARISON: 09/06/2016 TECHNIQUE: Chest PA and lateral FINDINGS: LUNGS: There is interval worsening of airspace disease in the left lower lobe. There is a round masslike opacity in the left lower lobe with question of air-fluid level. Also noted is airspace disease within the right lower lobe. Also seen is a 5.3 cm pleural-based opacity in the right upper lobe. PLEURA: There is a left pleural effusion. No pneumothorax apparent. CARDIOVASCULAR: Normal. OSSEOUS STRUCTURES: No significant abnormalities. VISUALIZED UPPER ABDOMEN: Normal. OTHER FINDINGS: None. IMPRESSION: Worsening multifocal airspace disease with masslike opacity in the left lower lobe with an apparent air-fluid level. A developing abscess cannot be excluded. Also noted is a 5.2 cm pleural-based lesion in the right upper lobe. CT scan of the thorax with intravenous contrast is recommended for further evaluation.
--- NOTE | 2016-09-09 12:21 | CP.PCM.PN ---
Subjective - Date & Time of Evaluation Date of Evaluation: 09/09/16 Time of Evaluation: 12:24 - Subjective Subjective: CONTINUES TO IMPROVE CLINICALLY COUGH LESS SOB LESS Objective - Vital Signs/Intake and Output Vital Signs (last 24 hours): Temp Pulse Resp BP Pulse Ox 97.3 F L 84 18 144/82 94 L 09/09/16 08:05 09/09/16 09:00 09/09/16 08:05 09/09/16 08:32 09/09/16 08:05 - Medications Medications: Current Medications Al Hydrox/Mg Hydrox/Simethicone (Maalox Plus 30 Ml) 30 ml PO Q6 PRN PRN Reason: Indigestion / Heartburn Albuterol (Ventolin Hfa 90 Mcg/Actuation (8 G)) 1 puff INH Q6 DINO Last Admin: 09/09/16 09:09 Dose: 1 puff Albuterol/Ipratropium (Duoneb 3 Mg/0.5 Mg (3 Ml) Ud) 3 ml INH RQ4 PRN PRN Reason: Shortness of Breath Last Admin: 09/05/16 17:54 Dose: 3 ml Amlodipine Besylate (Norvasc) 10 mg PO DAILY [facility] Last Admin: 09/09/16 08:32 Dose: 10 mg Escitalopram Oxalate (Lexapro) 20 mg PO DAILY [facility] Last Admin: 09/09/16 08:31 Dose: 20 mg Linezolid (Zyvox 600mg/300ml D5w) 300 mls @ 300 mls/hr IVPB Q12 DINO Last Admin: 09/09/16 08:39 Dose: 300 mls/hr Insulin Detemir (Levemir) 6 units SC HS [facility] Last Admin: 09/08/16 22:34 Dose: 6 units Insulin Human Regular (Humulin R) 0 units SC ACHS DINO PRN Reason: Protocol Last Admin: 09/09/16 12:11 Dose: 3 unit Oxycodone/Acetaminophen (Percocet 5/325 Mg Tab) 1 tab PO Q4 PRN PRN Reason: Pain, moderate (4-7) Stop: 09/11/16 10:19 Last Admin: 09/09/16 06:12 Dose: 1 tab Pantoprazole Sodium (Protonix Ec Tab) 40 mg PO DAILY [facility] Last Admin: 09/09/16 08:31 Dose: 40 mg Phenol/Menthol (Phenaseptic 1.4% Throat [place]) 1 spry MT TID DINO Last Admin: 09/09/16 12:11 Dose: 1 spr Promethazine HCl/Dextromethorphan (Phenergan Dm Syrup) 5 ml PO Q6 PRN PRN Reason: Cough Last Admin: 09/08/16 06:09 Dose: 5 ml - Labs Labs: 09/09/16 05:10 09/09/16 05:10 PT 10.3 SECONDS (9.6-11.2) 09/01/16 13:15 INR 0.99 (0.92-1.08) 09/01/16 13:15 - Constitutional Appears: No Acute Distress - Head Exam Head Exam: ATRAUMATIC, NORMAL INSPECTION, NORMOCEPHALIC - Eye Exam Eye Exam: EOMI, Normal appearance, PERRL Pupil Exam: NORMAL ACCOMODATION, PERRL - ENT Exam ENT Exam: Mucous Membranes Moist, Normal Exam - Neck Exam Neck Exam: Full ROM, Normal Inspection. absent: Lymphadenopathy - Respiratory Exam Respiratory Exam: Decreased Breath Sounds, Prolonged Expiratory Phase, Rales, NORMAL BREATHING PATTERN - Cardiovascular Exam Cardiovascular Exam: REGULAR RHYTHM, +S1, +S2. absent: Murmur - GI/Abdominal Exam GI & Abdominal Exam: Soft, Normal Bowel Sounds. absent: Tenderness - Rectal Exam Rectal Exam: NORMAL INSPECTION - Extremities Exam Extremities Exam: Full ROM, Normal Capillary Refill, Normal Inspection. absent : Joint Swelling, Pedal Edema - Back Exam Back Exam: NORMAL INSPECTION - Neurological Exam Neurological Exam: Alert, Awake, CN II-XII Intact, Normal Gait, Oriented x3 - Psychiatric Exam Psychiatric exam: Normal Affect, Normal Mood - Skin Skin Exam: Dry, Intact, Normal Color, Warm Assessment and Plan - Assessment and Plan (Free Text) Assessment: PNEUMONIA CXR-WORSENING OF PULMONARY INFILTERATES Plan: CASE DISCUSSED WITH PT BRONCHOSCOPY WITH BX RECOMMENDED--RISKS AND BENEFITS ADVISED--PT TO DISCUS THE PROCEEDURE WITH FRIENDS AND FAMILY BEFORE MAKING A DECISION.
--- NOTE | 2016-09-09 12:32 | CP.PCM.PN ---
Subjective - Date & Time of Evaluation Date of Evaluation: 09/09/16 Time of Evaluation: 07:00 - Subjective Subjective: CXR TODAY AGAIN SHOWS MASS LIKE LESION AND WORSENING INFILTRATES BIOPSY PROPOSED BY DR AVINA IV RX CONTINUES FOR MRSA SPUTUM Objective - Vital Signs/Intake and Output Vital Signs (last 24 hours): Temp Pulse Resp BP Pulse Ox 97.3 F L 84 18 144/82 94 L 09/09/16 08:05 09/09/16 09:00 09/09/16 08:05 09/09/16 08:32 09/09/16 08:05 - Medications Medications: Current Medications Al Hydrox/Mg Hydrox/Simethicone (Maalox Plus 30 Ml) 30 ml PO Q6 PRN PRN Reason: Indigestion / Heartburn Albuterol (Ventolin Hfa 90 Mcg/Actuation (8 G)) 1 puff INH Q6 DINO Last Admin: 09/09/16 09:09 Dose: 1 puff Albuterol/Ipratropium (Duoneb 3 Mg/0.5 Mg (3 Ml) Ud) 3 ml INH RQ4 PRN PRN Reason: Shortness of Breath Last Admin: 09/05/16 17:54 Dose: 3 ml Amlodipine Besylate (Norvasc) 10 mg PO DAILY [facility] Last Admin: 09/09/16 08:32 Dose: 10 mg Escitalopram Oxalate (Lexapro) 20 mg PO DAILY [facility] Last Admin: 09/09/16 08:31 Dose: 20 mg Linezolid (Zyvox 600mg/300ml D5w) 300 mls @ 300 mls/hr IVPB Q12 DINO Last Admin: 09/09/16 08:39 Dose: 300 mls/hr Insulin Detemir (Levemir) 6 units SC HS [facility] Last Admin: 09/08/16 22:34 Dose: 6 units Insulin Human Regular (Humulin R) 0 units SC ACHS DINO PRN Reason: Protocol Last Admin: 09/09/16 12:11 Dose: 3 unit Oxycodone/Acetaminophen (Percocet 5/325 Mg Tab) 1 tab PO Q4 PRN PRN Reason: Pain, moderate (4-7) Stop: 09/11/16 10:19 Last Admin: 09/09/16 12:20 Dose: 1 tab Pantoprazole Sodium (Protonix Ec Tab) 40 mg PO DAILY [facility] Last Admin: 09/09/16 08:31 Dose: 40 mg Phenol/Menthol (Phenaseptic 1.4% Throat [place]) 1 spry MT TID [facility] Last Admin: 09/09/16 12:11 Dose: 1 spr Promethazine HCl/Dextromethorphan (Phenergan Dm Syrup) 5 ml PO Q6 PRN PRN Reason: Cough Last Admin: 09/08/16 06:09 Dose: 5 ml - Labs Labs: 09/09/16 05:10 09/09/16 05:10 PT 10.3 SECONDS (9.6-11.2) 09/01/16 13:15 INR 0.99 (0.92-1.08) 09/01/16 13:15 - Constitutional Appears: Non-toxic, Cachectic, Chronically Ill - Head Exam Head Exam: NORMOCEPHALIC - Eye Exam Eye Exam: absent: Scleral icterus - ENT Exam ENT Exam: Mucous Membranes Dry - Neck Exam Neck Exam: absent: Lymphadenopathy - Respiratory Exam Respiratory Exam: Decreased Breath Sounds, Rhonchi - Cardiovascular Exam Cardiovascular Exam: REGULAR RHYTHM, +S1, +S2 - GI/Abdominal Exam GI & Abdominal Exam: Distended, Soft. absent: Tenderness - Rectal Exam Rectal Exam: Deferred - Exam Exam: NORMAL INSPECTION - Extremities Exam Extremities Exam: absent: Calf Tenderness, Pedal Edema - Back Exam Back Exam: absent: CVA tenderness (L), CVA tenderness (R) - Neurological Exam Neurological Exam: Alert, Awake, Oriented x3 Assessment and Plan (1) COPD exacerbation Status: Acute (2) Hemoptysis Status: Acute (3) Multiple pulmonary nodules Status: Acute - Assessment and Plan (Free Text) Assessment: CONT IV RX FOR 21 DAYS FOR FOB BX
[2016-09-09] MEDS: Insulin Detemir 100 Units/ml Inj SC SCH (21:19)
[2016-09-10] MEDS: Albuterol HFA 90 mcg/actuation (8 g) INH SCH ×4 (04:49→21:22)
[2016-09-10] MEDS: Insulin Regular 100 units/ml SC SCH ×4 (06:38→21:42)
--- NOTE | 2016-09-10 07:20 | CP.PCM.PN ---
Subjective - Date & Time of Evaluation Date of Evaluation: 09/10/16 Time of Evaluation: 07:20 - Subjective Subjective: no new comlaints. still w/ cough no hemoptysis. wbc still 15 and cxr still abn. for broncoscopy tomorrow informed that pt is a resident at [facility] under s/o dr brittni luu. this provider called dr luu who will take ms chu under his service in [place]. Objective - Vital Signs/Intake and Output Vital Signs (last 24 hours): Temp Pulse Resp BP Pulse Ox 97.8 F 84 20 141/91 H 95 09/10/16 04:53 09/10/16 04:53 09/10/16 04:53 09/10/16 04:53 09/10/16 04:53 - Medications Medications: Current Medications Al Hydrox/Mg Hydrox/Simethicone (Maalox Plus 30 Ml) 30 ml PO Q6 PRN PRN Reason: Indigestion / Heartburn Albuterol (Ventolin Hfa 90 Mcg/Actuation (8 G)) 1 puff INH Q6 DINO Last Admin: 09/10/16 04:49 Dose: 1 puff Albuterol/Ipratropium (Duoneb 3 Mg/0.5 Mg (3 Ml) Ud) 3 ml INH RQ4 PRN PRN Reason: Shortness of Breath Last Admin: 09/05/16 17:54 Dose: 3 ml Amlodipine Besylate (Norvasc) 10 mg PO DAILY [facility] Last Admin: 09/09/16 08:32 Dose: 10 mg Escitalopram Oxalate (Lexapro) 20 mg PO DAILY [facility] Last Admin: 09/09/16 08:31 Dose: 20 mg Linezolid (Zyvox 600mg/300ml D5w) 300 mls @ 300 mls/hr IVPB Q12 DINO Last Admin: 09/09/16 20:07 Dose: 300 mls/hr Insulin Detemir (Levemir) 6 units SC HS DINO Last Admin: 09/09/16 21:19 Dose: 6 units Insulin Human Regular (Humulin R) 0 units SC ACHS DINO PRN Reason: Protocol Last Admin: 09/10/16 06:38 Dose: 3 unit Oxycodone/Acetaminophen (Percocet 5/325 Mg Tab) 1 tab PO Q4 PRN PRN Reason: Pain, moderate (4-7) Stop: 09/11/16 10:19 Last Admin: 09/09/16 20:12 Dose: 1 tab Pantoprazole Sodium (Protonix Ec Tab) 40 mg PO DAILY [facility] Last Admin: 09/09/16 08:31 Dose: 40 mg Phenol/Menthol (Phenaseptic 1.4% Throat [place]) 1 spry MT TID [facility] Last Admin: 09/09/16 16:22 Dose: 1 spr Promethazine HCl/Dextromethorphan (Phenergan Dm Syrup) 5 ml PO Q6 PRN PRN Reason: Cough Last Admin: 09/08/16 06:09 Dose: 5 ml - Labs Labs: 09/09/16 05:10 09/09/16 05:10 PT 10.3 SECONDS (9.6-11.2) 09/01/16 13:15 INR 0.99 (0.92-1.08) 09/01/16 13:15 - Constitutional Appears: Well, Non-toxic, No Acute Distress - Head Exam Head Exam: ATRAUMATIC, NORMAL INSPECTION, NORMOCEPHALIC - Eye Exam Eye Exam: EOMI, Normal appearance, PERRL Pupil Exam: NORMAL ACCOMODATION, PERRL - ENT Exam ENT Exam: Mucous Membranes Moist, Normal Exam - Neck Exam Neck Exam: Full ROM, Normal Inspection. absent: Lymphadenopathy - Respiratory Exam Respiratory Exam: Wheezes, NORMAL BREATHING PATTERN - Cardiovascular Exam Cardiovascular Exam: REGULAR RHYTHM, RRR, +S1, +S2. absent: Murmur - GI/Abdominal Exam GI & Abdominal Exam: Soft, Normal Bowel Sounds. absent: Tenderness - Rectal Exam Rectal Exam: NORMAL INSPECTION - Extremities Exam Extremities Exam: Full ROM, Normal Capillary Refill, Normal Inspection. absent : Joint Swelling, Pedal Edema - Back Exam Back Exam: NORMAL INSPECTION - Neurological Exam Neurological Exam: Alert, Awake, CN II-XII Intact, Normal Gait, Oriented x3 - Psychiatric Exam Psychiatric exam: Normal Affect, Normal Mood - Skin Skin Exam: Dry, Intact, Normal Color, Warm Assessment and Plan (1) Hemoptysis Status: Acute (2) Type 2 diabetes mellitus with hyperglycemia Status: Acute (3) DVT prophylaxis Status: Acute (4) Left flank pain Status: Acute (5) Pneumonia Status: Acute - Assessment and Plan (Free Text) Assessment: (1) Hemoptysis Assessment & Plan: r/t abn cxr cont zyvox, cont consults likely [facility] for iv anbx trend cxr resp tx cough meds contact for mrsa sputum /airborne precautions dc ppd negative x 3 wks, ?? picc Status: Acute (2) Type 2 diabetes mellitus with hyperglycemia Assessment & Plan: cont meds, fsbg, riss, diet Status: Acute (3) DVT prophylaxis Assessment & Plan: scd and ae hose, ambulation Status: Acute (4) Left flank pain Assessment & Plan: r/t abn cxr, pain control Status: Acute (5) Pneumonia-MRSA positive Assessment & Plan: see plan for hemoptysis less likely malignancy Status: Acute broncoscopy tomorrow saf/tcu/snf for 2 more wks iv anbx-zyvox per id service changed to dr luu
[2016-09-10 07:40] LABS: BASO % 0.1 % (0.0-2.0); EOS % 0.1 % (0.0-4.0); HEMATOCRIT 32.7 % (34.0-47.0); LYMPH # 1.7 K/uL (1.0-4.3); LYMPH % 11.5 % (20.0-40.0); MEAN CELL VOLUME 83.3 fl (81.0-99.0); MEAN CORPUSCULAR HEMOGLOBIN 27.6 pg (27.0-31.0); MEAN CORPUSCULAR HGB CONC 33.2 g/dL (33.0-37.0); MEAN PLATELET VOLUME 5.8 fl (7.2-11.7); MONO # 0.5 K/uL (0.0-0.8); MONO % 3.1 % (0.0-10.0); NEUT # 12.9 K/uL (1.8-7.0); NEUT % 85.2 % (50.0-75.0); RED CELL DISTRIBUTION WIDTH 17.6 % (11.5-14.5); WHITE BLOOD COUNT 15.1 K/uL (4.8-10.8)
[2016-09-10 07:55] LABS: ALB/GLOB RATIO 0.6 (1.0-2.1); ALKALINE PHOSPHATASE 283 U/L (38-126); ALT/SGPT 76 U/L (9-52); AST/SGOT 80 U/L (14-36); BILIRUBIN,TOTAL 0.5 mg/dl (0.2-1.3); BLOOD UREA NITROGEN 19 mg/dl (7-17); CALCIUM 9.5 mg/dL (8.4-10.2); CARBON DIOXIDE 28 mmol/L (22-30); CHLORIDE 100 mmol/L (98-107); GFR AFRICAN-AMERICAN > 60; GLUCOSE,RANDOM 144 mg/dL (65-105); POTASSIUM 4.4 MMOL/L (3.6-5.0); SODIUM 140 mmol/l (132-148); TOTAL PROTEIN 7.9 G/DL (6.3-8.2)
[2016-09-10 08:01] LABS: PARTIAL THROMBOPLASTIN TIME 24.2 SECONDS (23.3-32.5)
[2016-09-10] MEDS: Oxycodone/Acetaminophen 5/325 mg Tab PO PRN ×4 (08:31→21:33)
[2016-09-10] MEDS: Pantoprazole 40 mg EC Tab PO SCH (08:32)
[2016-09-10] MEDS: Phenol 1.4% Throat Spray MT SCH ×3 (08:33→16:35)
[2016-09-10] MEDS: Promethazine DM 6.25 mg-15 mg/5 ml Syrup PO PRN ×2 (08:34→16:36)
[2016-09-10] MEDS: Linezolid 600 mg in D5W 300 ml 300 ML IVPB SCH ×2 (08:34→20:13)
--- NOTE | 2016-09-10 09:20 | CP.PCM.PN ---
Subjective - Date & Time of Evaluation Date of Evaluation: 09/10/16 Time of Evaluation: 09:20 - Subjective Subjective: OOB TO CHAIR FEELS BETTER STILL COUGHING Objective - Vital Signs/Intake and Output Vital Signs (last 24 hours): Temp Pulse Resp BP Pulse Ox 98.3 F 90 20 137/78 91 L 09/10/16 08:00 09/10/16 08:33 09/10/16 08:00 09/10/16 08:33 09/10/16 08:00 - Medications Medications: Current Medications Al Hydrox/Mg Hydrox/Simethicone (Maalox Plus 30 Ml) 30 ml PO Q6 PRN PRN Reason: Indigestion / Heartburn Albuterol (Ventolin Hfa 90 Mcg/Actuation (8 G)) 1 puff INH Q6 DINO Last Admin: 09/10/16 04:49 Dose: 1 puff Albuterol/Ipratropium (Duoneb 3 Mg/0.5 Mg (3 Ml) Ud) 3 ml INH RQ4 PRN PRN Reason: Shortness of Breath Last Admin: 09/05/16 17:54 Dose: 3 ml Amlodipine Besylate (Norvasc) 10 mg PO DAILY [facility] Last Admin: 09/10/16 08:33 Dose: 10 mg Escitalopram Oxalate (Lexapro) 20 mg PO DAILY [facility] Last Admin: 09/10/16 08:33 Dose: 20 mg Linezolid (Zyvox 600mg/300ml D5w) 300 mls @ 300 mls/hr IVPB Q12 DINO Last Admin: 09/10/16 08:34 Dose: 300 mls/hr Insulin Detemir (Levemir) 6 units SC HS [facility] Last Admin: 09/09/16 21:19 Dose: 6 units Insulin Human Regular (Humulin R) 0 units SC ACHS DINO PRN Reason: Protocol Last Admin: 09/10/16 06:38 Dose: 3 unit Oxycodone/Acetaminophen (Percocet 5/325 Mg Tab) 1 tab PO Q4 PRN PRN Reason: Pain, moderate (4-7) Stop: 09/11/16 10:19 Last Admin: 09/10/16 08:31 Dose: 1 tab Pantoprazole Sodium (Protonix Ec Tab) 40 mg PO DAILY [facility] Last Admin: 09/10/16 08:32 Dose: 40 mg Phenol/Menthol (Phenaseptic 1.4% Throat [place]) 1 spry MT TID DINO Last Admin: 09/10/16 08:33 Dose: 1 spr Promethazine HCl/Dextromethorphan (Phenergan Dm Syrup) 5 ml PO Q6 PRN PRN Reason: Cough Last Admin: 09/10/16 08:34 Dose: 5 ml - Labs Labs: 09/10/16 06:40 09/10/16 06:40 PT 10.4 SECONDS (9.6-11.2) 09/10/16 06:40 INR 1.00 (0.92-1.08) 09/10/16 06:40 APTT 24.2 SECONDS (23.3-32.5) 09/10/16 06:40 - Constitutional Appears: Well - Head Exam Head Exam: ATRAUMATIC, NORMAL INSPECTION, NORMOCEPHALIC - Eye Exam Eye Exam: EOMI, Normal appearance, PERRL Pupil Exam: NORMAL ACCOMODATION, PERRL - ENT Exam ENT Exam: Mucous Membranes Moist, Normal Exam - Neck Exam Neck Exam: Full ROM, Normal Inspection. absent: Lymphadenopathy - Respiratory Exam Respiratory Exam: Decreased Breath Sounds, Rales, NORMAL BREATHING PATTERN - Cardiovascular Exam Cardiovascular Exam: REGULAR RHYTHM, +S1, +S2. absent: Murmur - GI/Abdominal Exam GI & Abdominal Exam: Soft, Normal Bowel Sounds. absent: Tenderness - Rectal Exam Rectal Exam: NORMAL INSPECTION - Extremities Exam Extremities Exam: Full ROM, Normal Capillary Refill, Normal Inspection. absent : Joint Swelling, Pedal Edema - Back Exam Back Exam: NORMAL INSPECTION - Neurological Exam Neurological Exam: Alert, Awake, CN II-XII Intact, Normal Gait, Oriented x3 - Psychiatric Exam Psychiatric exam: Normal Affect, Normal Mood - Skin Skin Exam: Dry, Intact, Normal Color, Warm Assessment and Plan - Assessment and Plan (Free Text) Assessment: PNEUMONIA COPD Plan: WILL SCHEDULE FOR BERONCHOSCOPY WITH BX AND LAVAGE--PT CONSENTS
[2016-09-10] MEDS: Insulin Detemir 100 Units/ml Inj SC SCH (22:05)
[2016-09-11] MEDS: Albuterol HFA 90 mcg/actuation (8 g) INH SCH ×4 (03:07→22:03)
[2016-09-11 07:21] LABS: HEMATOCRIT 32.9 % (34.0-47.0); MEAN CELL VOLUME 82.3 fl (81.0-99.0); MEAN CORPUSCULAR HEMOGLOBIN 27.8 pg (27.0-31.0); MEAN CORPUSCULAR HGB CONC 33.8 g/dL (33.0-37.0); RED CELL DISTRIBUTION WIDTH 17.8 % (11.5-14.5); WHITE BLOOD COUNT 15.8 K/uL (4.8-10.8)
[2016-09-11 07:27] LABS: BLOOD UREA NITROGEN 27 mg/dl (7-17); CALCIUM 9.5 mg/dL (8.4-10.2); CARBON DIOXIDE 29 mmol/L (22-30); CHLORIDE 99 mmol/L (98-107); GFR AFRICAN-AMERICAN > 60; GLUCOSE,RANDOM 145 mg/dL (65-105); POTASSIUM 4.3 MMOL/L (3.6-5.0); SODIUM 141 mmol/l (132-148)
[2016-09-11] MEDS: Insulin Regular 100 units/ml SC SCH ×4 (07:56→23:11)
[2016-09-11] MEDS: Oxycodone/Acetaminophen 5/325 mg Tab PO PRN ×4 (08:46→20:32)
[2016-09-11] MEDS: Phenol 1.4% Throat Spray MT SCH ×3 (08:47→16:07)
[2016-09-11] MEDS: Pantoprazole 40 mg EC Tab PO SCH (08:47)
[2016-09-11] MEDS: Promethazine DM 6.25 mg-15 mg/5 ml Syrup PO PRN (08:47)
--- NOTE | 2016-09-11 09:07 | CP.PCM.PN ---
Subjective - Date & Time of Evaluation Date of Evaluation: 09/11/16 Time of Evaluation: 09:07 - Subjective Subjective: feels better cough and sob improving Objective - Vital Signs/Intake and Output Vital Signs (last 24 hours): Temp Pulse Resp BP Pulse Ox 98.5 F 88 20 129/76 92 L 09/11/16 08:03 09/11/16 08:03 09/11/16 08:03 09/11/16 08:03 09/11/16 08:03 - Medications Medications: Current Medications Al Hydrox/Mg Hydrox/Simethicone (Maalox Plus 30 Ml) 30 ml PO Q6 PRN PRN Reason: Indigestion / Heartburn Albuterol (Ventolin Hfa 90 Mcg/Actuation (8 G)) 1 puff INH Q6 DINO Last Admin: 09/11/16 03:07 Dose: 1 puff Albuterol/Ipratropium (Duoneb 3 Mg/0.5 Mg (3 Ml) Ud) 3 ml INH RQ4 PRN PRN Reason: Shortness of Breath Last Admin: 09/05/16 17:54 Dose: 3 ml Amlodipine Besylate (Norvasc) 10 mg PO DAILY [facility] Last Admin: 09/11/16 08:47 Dose: 10 mg Escitalopram Oxalate (Lexapro) 20 mg PO DAILY [facility] Last Admin: 09/11/16 08:47 Dose: 20 mg Linezolid (Zyvox 600mg/300ml D5w) 300 mls @ 300 mls/hr IVPB Q12 DINO Last Admin: 09/10/16 20:13 Dose: 300 mls/hr Insulin Detemir (Levemir) 6 units SC HS [facility]INO Last Admin: 09/10/16 22:05 Dose: 6 units Insulin Human Regular (Humulin R) 0 units SC ACHS DINO PRN Reason: Protocol Last Admin: 09/11/16 07:56 Dose: Not Given Oxycodone/Acetaminophen (Percocet 5/325 Mg Tab) 1 tab PO Q4 PRN PRN Reason: Pain, moderate (4-7) Stop: 09/11/16 10:19 Last Admin: 09/11/16 08:46 Dose: 1 tab Pantoprazole Sodium (Protonix Ec Tab) 40 mg PO DAILY [facility] Last Admin: 09/11/16 08:47 Dose: 40 mg Phenol/Menthol (Phenaseptic 1.4% Throat [place]) 1 spry MT TID DINO Last Admin: 09/11/16 08:47 Dose: 1 spr Promethazine HCl/Dextromethorphan (Phenergan Dm Syrup) 5 ml PO Q6 PRN PRN Reason: Cough Last Admin: 09/11/16 08:47 Dose: 5 ml - Labs Labs: 09/11/16 06:20 09/11/16 06:20 PT 10.4 SECONDS (9.6-11.2) 09/10/16 06:40 INR 1.00 (0.92-1.08) 09/10/16 06:40 APTT 24.2 SECONDS (23.3-32.5) 09/10/16 06:40 - Constitutional Appears: Well - Head Exam Head Exam: ATRAUMATIC, NORMAL INSPECTION, NORMOCEPHALIC - Eye Exam Eye Exam: EOMI, Normal appearance, PERRL Pupil Exam: NORMAL ACCOMODATION, PERRL - ENT Exam ENT Exam: Mucous Membranes Moist, Normal Exam - Neck Exam Neck Exam: Full ROM, Normal Inspection. absent: Lymphadenopathy - Respiratory Exam Respiratory Exam: Decreased Breath Sounds, Rales, NORMAL BREATHING PATTERN - Cardiovascular Exam Cardiovascular Exam: REGULAR RHYTHM, +S1, +S2. absent: Murmur - GI/Abdominal Exam GI & Abdominal Exam: Soft, Normal Bowel Sounds. absent: Tenderness - Rectal Exam Rectal Exam: NORMAL INSPECTION - Extremities Exam Extremities Exam: Full ROM, Normal Capillary Refill, Normal Inspection. absent : Joint Swelling, Pedal Edema - Back Exam Back Exam: NORMAL INSPECTION - Neurological Exam Neurological Exam: Alert, Awake, CN II-XII Intact, Normal Gait, Oriented x3 - Psychiatric Exam Psychiatric exam: Normal Affect, Normal Mood - Skin Skin Exam: Dry, Intact, Normal Color, Warm Assessment and Plan - Assessment and Plan (Free Text) Assessment: pneumonia Plan: for bronchoscopy in am
--- NOTE | 2016-09-11 10:56 | CP.PCM.PN ---
Subjective - Date & Time of Evaluation Date of Evaluation: 09/11/16 Time of Evaluation: 09:00 - Subjective Subjective: no fever less cough iv rx reordered Objective - Vital Signs/Intake and Output Vital Signs (last 24 hours): Temp Pulse Resp BP Pulse Ox 98.5 F 88 20 129/76 92 L 09/11/16 08:03 09/11/16 08:03 09/11/16 08:03 09/11/16 08:03 09/11/16 08:03 - Medications Medications: Current Medications Al Hydrox/Mg Hydrox/Simethicone (Maalox Plus 30 Ml) 30 ml PO Q6 PRN PRN Reason: Indigestion / Heartburn Albuterol (Ventolin Hfa 90 Mcg/Actuation (8 G)) 1 puff INH Q6 [facility] Last Admin: 09/11/16 10:12 Dose: 1 puff Albuterol/Ipratropium (Duoneb 3 Mg/0.5 Mg (3 Ml) Ud) 3 ml INH RQ4 PRN PRN Reason: Shortness of Breath Last Admin: 09/05/16 17:54 Dose: 3 ml Amlodipine Besylate (Norvasc) 10 mg PO DAILY [facility] Last Admin: 09/11/16 08:47 Dose: 10 mg Escitalopram Oxalate (Lexapro) 20 mg PO DAILY [facility] Last Admin: 09/11/16 08:47 Dose: 20 mg Linezolid (Zyvox 600mg/300ml D5w) 300 mls @ 300 mls/hr IVPB Q12 [facility] Last Admin: 09/10/16 20:13 Dose: 300 mls/hr Insulin Detemir (Levemir) 6 units SC HS [facility] Last Admin: 09/10/16 22:05 Dose: 6 units Insulin Human Regular (Humulin R) 0 units SC ACHS [facility] PRN Reason: Protocol Last Admin: 09/11/16 07:56 Dose: Not Given Pantoprazole Sodium (Protonix Ec Tab) 40 mg PO DAILY [facility] Last Admin: 09/11/16 08:47 Dose: 40 mg Phenol/Menthol (Phenaseptic 1.4% Throat [place]) 1 spry MT TID [facility] Last Admin: 09/11/16 08:47 Dose: 1 spr Promethazine HCl/Dextromethorphan (Phenergan Dm Syrup) 5 ml PO Q6 PRN PRN Reason: Cough Last Admin: 09/11/16 08:47 Dose: 5 ml - Labs Labs: 09/11/16 06:20 09/11/16 06:20 PT 10.4 SECONDS (9.6-11.2) 09/10/16 06:40 INR 1.00 (0.92-1.08) 09/10/16 06:40 APTT 24.2 SECONDS (23.3-32.5) 09/10/16 06:40 - Constitutional Appears: Non-toxic, Cachectic, Chronically Ill - Head Exam Head Exam: NORMOCEPHALIC - Eye Exam Eye Exam: PERRL. absent: Scleral icterus - ENT Exam ENT Exam: Mucous Membranes Dry - Neck Exam Neck Exam: absent: Lymphadenopathy - Respiratory Exam Respiratory Exam: Decreased Breath Sounds, Prolonged Expiratory Phase, Rhonchi - Cardiovascular Exam Cardiovascular Exam: REGULAR RHYTHM, +S1, +S2 - GI/Abdominal Exam GI & Abdominal Exam: Distended, Soft. absent: Tenderness - Rectal Exam Rectal Exam: Deferred - Exam Exam: NORMAL INSPECTION - Extremities Exam Extremities Exam: absent: Calf Tenderness, Pedal Edema - Back Exam Back Exam: absent: CVA tenderness (L), CVA tenderness (R) - Neurological Exam Neurological Exam: Alert, Awake, Oriented x3 - Psychiatric Exam Psychiatric exam: Normal Mood - Skin Skin Exam: Dry Assessment and Plan (1) COPD exacerbation Status: Acute (2) Hemoptysis Status: Acute (3) Multiple pulmonary nodules Status: Acute - Assessment and Plan (Free Text) Assessment: for FOB
[2016-09-11] MEDS ORDERED: Lidocaine 1% Inj (20ml) ONE (11:04)
[2016-09-11] MEDS: Linezolid 600 mg in D5W 300 ml 300 ML IVPB SCH ×2 (13:01→20:18)
[2016-09-11 14:07] LABS: KAPPA QUANTITATIVE 526 mg/dL (176-443); KAPPA/LAMDA QUANTITATIVE RATIO 1.97 (1.29-2.55); LAMBDA QUANTITATIVE 267 mg/dL (91-240)
--- NOTE | 2016-09-11 14:55 | PCM.SURG1 ---
Surgeon's Initial Post Op Note - Surgeon's Notes Surgeon: Hitesh Legislative Assistant: None Type of Anesthesia: Local Pre-Operative Diagnosis: Infection Operative Findings: Patent right basilic vein Post-Operative Diagnosis: Infection Operation Performed: Right basilic vein 4F SL 34 cm PICC placed. Specimen/Specimens Removed: None Estimated Blood Loss: EBL {In ML}: 1 Date of Surgery/Procedure: 09/11/16 Time of Surgery/Procedure: 11:20
--- NOTE | 2016-09-11 15:13 | VASCULAR ---
Procedure: Ultrasound and fluoroscopically placed Right upper extremity PICC. Clinical indication: Long-term IV antibiotics. Technique: The relative risks and indications of the procedure were explained to the patient and written informed consent obtained. The patient was placed supine on the angiographic table and the right arm prepped and draped in the usual sterile fashion. A tourniquet was applied to the right axilla. 1% lidocaine was used to anesthetize the skin and soft tissues at the puncture site above the elbow. The right basilic vein was punctured under direct ultrasound guidance with a micropuncture set. A permanent image was stored. A 0.018 guidewire was advanced centrally and used to measure the length to the SVC/RA junction. A 4 [place] single-lumen PICC, size 34 cm, was advanced to the SVC/RA junction under fluoroscopic guidance. The catheter was flushed and secured. The patient tolerated the procedure well. Postprocedure chest image was obtained to ensure location of the catheter tip at the SVC right atrial junction. Impression: Ultrasound and fluoroscopically placed right upper extremity PICC. A 4 [place] single-lumen PICC, size 34 cm was advanced to the SVC/RA junction. PICC ready for use.
[2016-09-11] MEDS: Insulin Detemir 100 Units/ml Inj SC SCH (22:02)
[2016-09-12] MEDS: Albuterol HFA 90 mcg/actuation (8 g) INH SCH ×4 (04:44→21:45)
[2016-09-12] MEDS: Insulin Regular 100 units/ml SC SCH ×4 (07:09→21:41)
[2016-09-12] MEDS ORDERED: Lidocaine 1% Inj (20ml) ONE (07:18)
[2016-09-12] MEDS ORDERED: EPINEPHrine 1 mg/ml (1:1000) Inj ONE (07:18)
[2016-09-12] MEDS ORDERED: Sodium Chloride 0.9% 20 ML IV ONE (07:18)
[2016-09-12] MEDS ORDERED: Lidocaine 2% Jelly (Uro-Jet) ONE (07:19)
[2016-09-12] MEDS ORDERED: Lidocaine 2% Jelly (5 ml) TOP ONE (07:20)
[2016-09-12] MEDS ORDERED: Midazolam 2 MG/2 ML VIAL ONE (08:40)
[2016-09-12] MEDS ORDERED: Propofol 10 mg/ml Inj (20 ML) ONE (08:41)
[2016-09-12] MEDS ORDERED: Lactated Ringer's 500 ML IV ONE (08:55)
[2016-09-12] MEDS: Phenol 1.4% Throat Spray MT SCH ×3 (09:07→16:47)
[2016-09-12] MEDS ORDERED: Albuterol 0.083% Inhal Sol (2.5 mg/3 mL) UD ONE (09:42)
[2016-09-12] MEDS ORDERED: HYDROmorphone 0.5 mg/0.5 ml ISec ONE (09:58)
[2016-09-12] MEDS ORDERED: DiphenhydrAMINE 50 mg/ml Inj IVP PRN (10:01)
[2016-09-12] MEDS ORDERED: HYDROmorphone 0.5 mg/0.5 ml ISec IVP PRN (10:01)
[2016-09-12] MEDS ORDERED: Albuterol-Ipratrop 3 mg / 0.5 (3 ml) UD ONE (10:08)
[2016-09-12] MEDS: Albuterol-Ipratrop 3 mg / 0.5 (3 ml) UD INH PRN (10:15)
--- NOTE | 2016-09-12 10:22 | PN ---
DATE: 09/11/2016 The patient seen and examined. Interim events noted. The patient accepted in in the service of Dr. Ureña. Case was discussed with Dr. Ureña. The patient complains of generalized weakness. No ches t pain or shortness of breath. PHYSICAL EXAMINATION: GENERAL: The patient is in no acute distress. VITAL SIGNS: Stable. HEART: S1, S2 normal, regular. LUNGS: Good bilateral air entry. ABDOMEN: Soft, nontender. EXTREMITIES: No edema, no calf swelling, no tenderness, no acute ischemia. CENTRAL NERVOUS SYSTEM: Essentially unchanged. DIAGNOSTIC DATA: Available diagnostic data reviewed. Overall, patient's general medical condition is stable. PLAN: As ordered. Juan Fitzgerald MD cc: [phone] TT: 09/12/2016 10:21:15 Confirmation # [id number] Dictation # [id number] celina
[2016-09-12] MEDS ORDERED: Acetylcysteine 10% 4 ML IH ONE (11:00)
--- NOTE | 2016-09-12 11:26 | RAD ---
PROCEDURE: CHEST RADIOGRAPH, 1 VIEW portable study 10:05. HISTORY: S/P bronchoscopy COMPARISON: 09/09/2016. FINDINGS: LUNGS: Multiple masses unchanged compared to the prior pre bronchoscopy study. PLEURA: No pneumothorax following bronchoscopy. CARDIOVASCULAR: Normal. OSSEOUS STRUCTURES: No significant abnormalities. VISUALIZED UPPER ABDOMEN: Normal. OTHER FINDINGS: None. IMPRESSION: No significant interval change compared to the prior examination(s). Specifically no pneumothorax.
--- NOTE | 2016-09-12 12:31 | PROCN ---
DATE: 09/12/2016 PROCEDURE: Fiberoptic bronchoscopy with transbronchial biopsy, washings and brushings. INDICATION: Pneumonia with hemoptysis. DESCRIPTION OF PROCEDURE: The procedure was performed in the endoscopy suite under aseptic condition s after carefully anesthetizing the patient's airway with 1% Xylocaine solution. The patient also re ceived IV sedation via anesthesia. The bronchoscope was inserted via the right nostril through the v ocal cords which appeared entirely unremarkable. The tracheobronchial tree appeared very erythematou s, left worse than right, with moderate amount of mucus secretions and mucus plugging of airways. No endobronchial lesions were noted. Washings, brushings and transbronchial biopsies were taken from t he left lower lobe endobronchial segments and washings were also taken from the right tracheobronchi al tree. The patient tolerated the procedure well. IMPRESSION, POST BRONCHOSCOPY: Pneumonia with mucus plugging of airways and hemoptysis. PLAN: Await the biopsy results. The patient was taken to postanesthesia room in good condition. Chest x-ray ordered postbronchoscopy to be reviewed. The plan is to continue medications as ordered. Corey Davalos MD cc: [phone] TT: 09/12/2016 12:31:24 Confirmation # [id number] Dictation # [id number] celina
[2016-09-12] MEDS: Oxycodone/Acetaminophen 5/325 mg Tab PO PRN ×2 (13:05→17:48)
[2016-09-12] MEDS: Pantoprazole 40 mg EC Tab PO SCH (13:06)
[2016-09-12] MEDS: Promethazine DM 6.25 mg-15 mg/5 ml Syrup PO PRN (13:11)
[2016-09-12] MEDS: Linezolid 600 mg in D5W 300 ml 300 ML IVPB SCH (14:10)
--- NOTE | 2016-09-12 14:59 | RAD ---
PROCEDURE: Fluoroscopy up to 1 hr. HISTORY: BRONCH COMPARISON: None TECHNIQUE: Standard FINDINGS: Submitted images from the current procedure: 2.0 IMPRESSION: Less than 1 hr fluoroscopic time utilized during performance of the procedure.
--- NOTE | 2016-09-12 18:55 | CP.PCM.PN ---
Subjective - Date & Time of Evaluation Date of Evaluation: 09/12/16 Time of Evaluation: 10:00 - Subjective Subjective: afeb s/p PICC IV rx reviewed Objective - Vital Signs/Intake and Output Vital Signs (last 24 hours): Temp Pulse Resp BP Pulse Ox 98.1 F 95 H 20 136/77 91 L 09/12/16 16:45 09/12/16 16:45 09/12/16 16:45 09/12/16 16:45 09/12/16 16:45 Intake and Output: 09/12/16 09/12/16 06:59 18:59 Intake Total 550 Balance 550 - Medications Medications: Current Medications Al Hydrox/Mg Hydrox/Simethicone (Maalox Plus 30 Ml) 30 ml PO Q6 PRN PRN Reason: Indigestion / Heartburn Albuterol (Ventolin Hfa 90 Mcg/Actuation (8 G)) 1 puff INH Q6 [facility] Last Admin: 09/12/16 16:47 Dose: 1 puff Albuterol/Ipratropium (Duoneb 3 Mg/0.5 Mg (3 Ml) Ud) 3 ml INH RQ4 PRN PRN Reason: Shortness of Breath Last Admin: 09/12/16 10:15 Dose: 3 ml Amlodipine Besylate (Norvasc) 10 mg PO DAILY [facility] Last Admin: 09/12/16 13:06 Dose: 10 mg Escitalopram Oxalate (Lexapro) 20 mg PO DAILY [facility] Last Admin: 09/12/16 13:06 Dose: 20 mg Insulin Detemir (Levemir) 6 units SC HS [facility] Last Admin: 09/11/16 22:02 Dose: 6 units Insulin Human Regular (Humulin R) 0 units SC ACHS [facility] PRN Reason: Protocol Last Admin: 09/12/16 16:47 Dose: 3 unit Oxycodone/Acetaminophen (Percocet 5/325 Mg Tab) 1 tab PO Q4 PRN PRN Reason: Pain, moderate (4-7) Stop: 09/14/16 12:25 Last Admin: 09/12/16 17:48 Dose: 1 tab Pantoprazole Sodium (Protonix Ec Tab) 40 mg PO DAILY [facility] Last Admin: 09/12/16 13:06 Dose: 40 mg Phenol/Menthol (Phenaseptic 1.4% Throat [place]) 1 spry MT TID [facility] Last Admin: 04/26/17 16:47 Dose: 1 spr Promethazine HCl/Dextromethorphan (Phenergan Dm Syrup) 5 ml PO Q6 PRN PRN Reason: Cough Last Admin: 09/12/16 13:11 Dose: 5 ml - Labs Labs: 09/11/16 06:20 09/11/16 06:20 PT 10.4 SECONDS (9.6-11.2) 09/10/16 06:40 INR 1.00 (0.92-1.08) 09/10/16 06:40 APTT 24.2 SECONDS (23.3-32.5) 09/10/16 06:40 - Constitutional Appears: Non-toxic, Cachectic, Chronically Ill - Head Exam Head Exam: NORMOCEPHALIC - Eye Exam Eye Exam: PERRL Pupil Exam: absent: NORMAL ACCOMODATION - Neck Exam Neck Exam: absent: Lymphadenopathy - Respiratory Exam Respiratory Exam: Decreased Breath Sounds, Rhonchi - Cardiovascular Exam Cardiovascular Exam: Tachycardia, REGULAR RHYTHM, +S1, +S2 - GI/Abdominal Exam GI & Abdominal Exam: Distended, Soft. absent: Tenderness Assessment and Plan (1) COPD exacerbation Status: Acute (2) Hemoptysis Status: Acute (3) Multiple pulmonary nodules Status: Acute
--- NOTE | 2016-09-12 20:29 | CP.PCM.PN ---
<Alyssa Rae - Last Filed: 09/12/16 21:22> Subjective - Date & Time of Evaluation Date of Evaluation: 09/12/16 Time of Evaluation: 07:30 - Subjective Subjective: 65F seen and examined at the bedside with attending. Patient denies any current shortness of breath or chest pain. Objective - Vital Signs/Intake and Output Vital Signs (last 24 hours): Temp Pulse Resp BP Pulse Ox 36.7 C 95 H 20 136/77 91 L 09/12/16 16:45 09/12/16 16:45 09/12/16 16:45 09/12/16 16:45 09/12/16 16:45 Intake and Output: 09/12/16 09/13/16 18:59 06:59 Intake Total 550 Balance 550 - Medications Medications: Current Medications Al Hydrox/Mg Hydrox/Simethicone (Maalox Plus 30 Ml) 30 ml PO Q6 PRN PRN Reason: Indigestion / Heartburn Albuterol (Ventolin Hfa 90 Mcg/Actuation (8 G)) 1 puff INH Q6 [facility] Last Admin: 09/12/16 16:47 Dose: 1 puff Albuterol/Ipratropium (Duoneb 3 Mg/0.5 Mg (3 Ml) Ud) 3 ml INH RQ4 PRN PRN Reason: Shortness of Breath Last Admin: 09/12/16 10:15 Dose: 3 ml Amlodipine Besylate (Norvasc) 10 mg PO DAILY [facility] Last Admin: 09/12/16 13:06 Dose: 10 mg Escitalopram Oxalate (Lexapro) 20 mg PO DAILY [facility] Last Admin: 09/12/16 13:06 Dose: 20 mg Insulin Detemir (Levemir) 6 units SC HS [facility] Last Admin: 09/11/16 22:02 Dose: 6 units Insulin Human Regular (Humulin R) 0 units SC ACHS [facility] PRN Reason: Protocol Last Admin: 09/12/16 16:47 Dose: 3 unit Oxycodone/Acetaminophen (Percocet 5/325 Mg Tab) 1 tab PO Q4 PRN PRN Reason: Pain, moderate (4-7) Stop: 09/14/16 12:25 Last Admin: 09/12/16 17:48 Dose: 1 tab Pantoprazole Sodium (Protonix Ec Tab) 40 mg PO DAILY [facility] Last Admin: 09/12/16 13:06 Dose: 40 mg Phenol/Menthol (Phenaseptic 1.4% Throat [place]) 1 spry MT TID [facility] Last Admin: 09/12/16 16:47 Dose: 1 spr Promethazine HCl/Dextromethorphan (Phenergan Dm Syrup) 5 ml PO Q6 PRN PRN Reason: Cough Last Admin: 09/12/16 13:11 Dose: 5 ml - Labs Labs: 09/11/16 06:20 09/11/16 06:20 PT 10.4 SECONDS (9.6-11.2) 09/10/16 06:40 INR 1.00 (0.92-1.08) 09/10/16 06:40 APTT 24.2 SECONDS (23.3-32.5) 09/10/16 06:40 Assessment and Plan (1) Pneumonia due to methicillin resistant Staphylococcus aureus Assessment & Plan: Chart reviewed: hemoptysis resolved early, TB ruled out, and then worsening infiltrates on imaging. Clinically, pt continues to improve, bronchoscopy today with Dr Davalos, ID requesting 21 days of antibiotics. - Pulmonary Consult (Dr Davalos) appreciated: f/u bronch samples/bx - ID Consult (Dr Roe) appreciated: 21 days antibiotics - Renewed Zyvox 600mg, IV, Q12H - Incentive Spirometry - PICC in place for abx Status: Acute (2) Anemia Assessment & Plan: Patient has been worked up by Heme/Onc and anemia is secondary to chronic disease. Stable at this time. Status: Acute (3) COPD with acute exacerbation Assessment & Plan: Severe exacerbation has resolved and currently stable at baseline. - Ventolin HFA 1 puff, INH, Q6H - DuoNebs 3ml, INH, Q4H PRN Status: Resolved (4) Diabetes Assessment & Plan: Not well-controlled, TDD = 20U (0.3/kg/day) - 10U Levemir, SC, HS - 3U Lispro, SC, ACTID - Hypoglycemia Bundle - Accu-checks Status: Chronic (5) Hypertension Assessment & Plan: Well controlled. - c/w Norvasc Status: Chronic (6) DVT prophylaxis Assessment & Plan: Lovenox 40mg, SC, Daily Status: Acute <Fitzgerald,Juan K - Last Filed: 09/20/16 17:08> Objective - Vital Signs/Intake and Output Vital Signs (last 24 hours): Temp Pulse Resp BP Pulse Ox 98 F 85 18 115/75 95 09/13/16 07:22 09/13/16 08:49 09/13/16 07:22 09/13/16 08:49 09/13/16 07:22 - Labs Labs: 09/13/16 06:30 09/13/16 06:30 PT 10.4 SECONDS (9.6-11.2) 09/10/16 06:40 INR 1.00 (0.92-1.08) 09/10/16 06:40 APTT 24.2 SECONDS (23.3-32.5) 09/10/16 06:40 Assessment and Plan - Assessment and Plan (Free Text) Assessment: Patient was personally seen and examined by me in rounds with residents. Available labs and diagnostic data reviewed. Case, Patient's condition and management plan discussed with residents in rounds. Agree with resident's documentation. Plan: As ordered. Juan Fitzgerald MD
[2016-09-12] MEDS ORDERED: Dextrose 50% SYRINGE Inj (50 ml) IV PRN (21:17)
[2016-09-12] MEDS ORDERED: Glucagon Recombinant 1 mg Inj IM PRN (21:17)
[2016-09-12] MEDS: Linezolid 600 mg in D5W 300 ml 600 MG/300 ML BAG IVPB SCH (21:44)
[2016-09-12] MEDS ORDERED: Insulin Detemir 100 Units/ml Inj SC SCH (22:00)
[2016-09-13] MEDS: Albuterol HFA 90 mcg/actuation (8 g) INH SCH ×2 (04:00→10:00)
[2016-09-13] MEDS: Insulin Regular 100 units/ml SC SCH ×2 (07:20→11:30)
[2016-09-13 07:23] VITALS: BP 115/75; RESP 18; TEMP 98; O2SAT 95
[2016-09-13 07:45] LABS: BASO % 0.1 % (0.0-2.0); EOS % 0.1 % (0.0-4.0); HEMATOCRIT 30.2 % (34.0-47.0); LYMPH # 1.6 K/uL (1.0-4.3); LYMPH % 11.6 % (20.0-40.0); MEAN CELL VOLUME 83.4 fl (81.0-99.0); MEAN CORPUSCULAR HEMOGLOBIN 28.1 pg (27.0-31.0); MEAN CORPUSCULAR HGB CONC 33.7 g/dL (33.0-37.0); MEAN PLATELET VOLUME 6.2 fl (7.2-11.7); MONO # 0.5 K/uL (0.0-0.8); MONO % 3.7 % (0.0-10.0); NEUT # 11.9 K/uL (1.8-7.0); NEUT % 84.5 % (50.0-75.0); NRBC % 0.1 % (0.0-0.0); WHITE BLOOD COUNT 14.1 K/uL (4.8-10.8)
[2016-09-13 08:09] LABS: BLOOD UREA NITROGEN 23 mg/dl (7-17); CALCIUM 9.5 mg/dL (8.4-10.2); CARBON DIOXIDE 29 mmol/L (22-30); CHLORIDE 97 mmol/L (98-107); GFR AFRICAN-AMERICAN > 60; GLUCOSE,RANDOM 122 mg/dL (65-105); POTASSIUM 4.1 MMOL/L (3.6-5.0); SODIUM 139 mmol/l (132-148)
--- NOTE | 2016-09-13 08:09 | CP.PCM.DIS ---
<Mine Raean - Last Filed: 09/13/16 17:50> Provider - Provider Date of Admission: 09/01/16 14:42 Attending physician: Juan Fitzgerald MD Consults: Pulmonary (Dr Davalos), ID (Dr Roe) Time Spent in preparation of Discharge (in minutes): 45 Diagnosis - Discharge Diagnosis (1) Pneumonia due to methicillin resistant Staphylococcus aureus Status: Acute Comment: Clinically, pt improved and s/p bronchoscopy. - Follow up Bronchoscopy Biopsies. - Zyvox 600mg, Q12H total of 21 days (started 09/01). - PICC in place, d/c after IV abx no longer required (2) Anemia Status: Chronic Comment: Patient has been worked up by Heme/Onc and anemia is secondary to chronic disease. Stable at this time. (3) COPD with acute exacerbation Status: Resolved Comment: Severe exacerbation has resolved and currently stable at baseline. - Ventolin HFA 1 puff, INH, Q6H. - DuoNebs 3ml, INH, Q4H PRN (4) Diabetes Status: Chronic Comment: Better controlled, TDD = 20U (0.3/kg/day). - 10U Levemir, SC, HS. - SSI, Lispro, SC, ACTID. - Accu-checks (5) Hypertension Status: Chronic Comment: Well controlled. - c/w [facility] Course - Lab Results Lab Results: Micro Results 09/12/16 11:30 Body Fluid - Bronchial Washing Gram Stain - Final 09/04/16 18:00 Other: Please Indicate Mycobacterial Culture - Preliminary 09/06/16 14:35 Other: Please Indicate Mycobacterial Culture - Preliminary 09/01/16 18:20 Blood Blood Culture - Final NO GROWTH AFTER 5 DAYS 09/01/16 18:20 Blood Gram Stain - Final TEST NOT PERFORMED 09/05/16 19:49 Other: Please Indicate Mycobacterial Culture - Preliminary 09/02/16 15:00 Sputum Induced Gram Stain - Final 09/02/16 15:00 Sputum Induced Sputum Culture - Final Methicillin Resistant S Aureus 09/02/16 17:26 Urine Urine Culture - Final No Growth (<1,000 CFU/ML) Most Recent Lab Values WBC 14.1 K/uL (4.8-10.8) H 09/13/16 06:30 RBC 3.62 Mil/uL (3.80-5.20) L 09/13/16 06:30 Hgb 10.2 g/dL (12.0-16.0) L 09/13/16 06:30 Hct 30.2 % (34.0-47.0) L 09/13/16 06:30 MCV 83.4 fl (81.0-99.0) 09/13/16 06:30 MCH 28.1 pg (27.0-31.0) 09/13/16 06:30 MCHC 33.7 g/dL (33.0-37.0) 09/13/16 06:30 RDW 18.0 % (11.5-14.5) H 09/13/16 06:30 Plt Count 278 K/uL (130-400) D 09/13/16 06:30 MPV 6.2 fl (7.2-11.7) L 09/13/16 06:30 Neut % (Auto) 84.5 % (50.0-75.0) H 09/13/16 06:30 Lymph % (Auto) 11.6 % (20.0-40.0) L 09/13/16 06:30 [place] % (Auto) 3.7 % (0.0-10.0) 09/13/16 06:30 Eos % (Auto) 0.1 % (0.0-4.0) 09/13/16 06:30 Baso % (Auto) 0.1 % (0.0-2.0) 09/13/16 06:30 Neut # 11.9 K/uL (1.8-7.0) H 09/13/16 06:30 Lymph # 1.6 K/uL (1.0-4.3) 09/13/16 06:30 [place] # 0.5 K/uL (0.0-0.8) 09/13/16 06:30 Eos # 0.0 K/uL (0.0-0.7) 09/13/16 06:30 Baso # 0.0 K/uL (0.0-0.2) 09/13/16 06:30 Total Counted Cancelled 09/02/16 05:30 Neutrophils % (Manual) 77 % (42-75) H 09/05/16 04:45 Band Neutrophils % 2 % (0-2) 09/05/16 04:45 Lymphocytes % (Manual) 9 % (20-50) L 09/05/16 04:45 Reactive Lymphs % 2 % (0-0) H 09/05/16 04:45 Monocytes % (Manual) 8 % (0-10) 09/05/16 04:45 Eosinophils % (Manual) Cancelled 09/02/16 05:30 Basophils % (Manual) Cancelled 09/02/16 05:30 Metamyelocytes % 2 % (0-0) H 09/05/16 04:45 Myelocytes % Cancelled 09/02/16 05:30 Promyelocytes % Cancelled 09/02/16 05:30 Blast Cells % Cancelled 09/02/16 05:30 Plasma Cell % (Manual) Cancelled 09/02/16 05:30 Nucleated RBC % Cancelled 09/02/16 05:30 Hypersegmented Polys Present 09/01/16 13:15 Smudge Cells Cancelled 09/02/16 05:30 Toxic Granulation Present 09/05/16 04:45 Dohle Bodies Cancelled 09/02/16 05:30 Bekah Rods Cancelled 09/02/16 05:30 Platelet Estimate Increased (NORMAL) H 09/05/16 04:45 Plt Clumps, EDTA Present 09/05/16 04:45 Large Platelets Present 09/01/16 13:15 Giant Platelets Present 09/01/16 13:15 RBC Morphology Cancelled 09/02/16 05:30 Polychromasia Cancelled 09/02/16 05:30 Hypochromasia (manual) Slight 09/05/16 04:45 Poikilocytosis (manual Cancelled 09/02/16 05:30 Basophilic Stippling Cancelled 09/02/16 05:30 Anisocytosis (manual) Slight 09/05/16 04:45 Microcytosis (manual) Cancelled 09/02/16 05:30 Macrocytosis (manual) Cancelled 09/02/16 05:30 Spherocytes Cancelled 09/02/16 05:30 Sickle Cells Cancelled 09/02/16 05:30 Target Cells Cancelled 09/02/16 05:30 Tear Drop Cells Cancelled 09/02/16 05:30 Ovalocytes Cancelled 09/02/16 05:30 Stomatocytes Cancelled 09/02/16 05:30 Helmet Cells Cancelled 09/02/16 05:30 [place] Bodies Cancelled 09/02/16 05:30 [place] Cells Cancelled 09/02/16 05:30 Acanthocytes (Spur) Cancelled 09/02/16 05:30 Rouleaux Cancelled 09/02/16 05:30 Schistocytes Cancelled 09/02/16 05:30 Retic Count 1.0 % (0.5-1.5) 09/03/16 04:00 PT 10.4 SECONDS (9.6-11.2) 09/10/16 06:40 INR 1.00 (0.92-1.08) 09/10/16 06:40 APTT 24.2 SECONDS (23.3-32.5) 09/10/16 06:40 pCO2 47 mm/Hg (35-45) H 09/01/16 14:53 pO2 65 mm/Hg (80-100) L 09/01/16 14:53 HCO3 27.5 mmol/L (21-28) 09/01/16 14:53 ABG pH 7.40 (7.35-7.45) 09/01/16 14:53 ABG Total CO2 30.5 mmol/L (22-28) H 09/01/16 14:53 ABG O2 Saturation 97.0 % (95-98) 09/01/16 14:53 ABG Base Excess 3.5 mmol/L (-2.0-3.0) H 09/01/16 14:53 Rashaun Test Yes 09/01/16 14:53 ABG Potassium 4.5 mmol/L (3.6-5.2) 09/01/16 14:53 A-a O2 Difference 76.0 mm/Hg 09/01/16 14:53 Sodium 132.0 mmol/L (132-148) 09/01/16 14:53 Chloride 101.0 mmol/L (98-107) 09/01/16 14:53 Glucose 296 mg/dL (65-105) H 09/01/16 14:53 Lactate 1.6 mmol/L (0.7-2.1) 09/01/16 14:53 FiO2 28.0 % 09/01/16 14:53 Sodium 141 mmol/l (132-148) 09/11/16 06:20 Potassium 4.3 MMOL/L (3.6-5.0) 09/11/16 06:20 Chloride 99 mmol/L (98-107) 09/11/16 06:20 Carbon Dioxide 29 mmol/L (22-30) 09/11/16 06:20 Anion Gap 18 (10-20) 09/11/16 06:20 BUN 27 mg/dl (7-17) H 09/11/16 06:20 Creatinine 0.7 mg/dL (0.7-1.2) 09/11/16 06:20 Est GFR ( Amer) > 60 09/11/16 06:20 Est GFR (Non-Af Amer) > 60 09/11/16 06:20 POC Glucose (mg/dL) 140 mg/dL (65-110) H 09/13/16 06:20 Random Glucose 145 mg/dL (65-105) H 09/11/16 06:20 Calcium 9.5 mg/dL (8.4-10.2) 09/11/16 06:20 Ferritin 863.0 ng/mL 09/03/16 04:00 Total Bilirubin 0.5 mg/dl (0.2-1.3) 09/10/16 06:40 AST 80 U/L (14-36) H D 09/10/16 06:40 ALT 76 U/L (9-52) H D 09/10/16 06:40 Alkaline Phosphatase 283 U/L (38-126) H D 09/10/16 06:40 Total Protein 7.9 G/DL (6.3-8.2) 09/10/16 06:40 Total Protein (PEP) 6.6 g/dL (6.1-8.1) 09/03/16 04:00 Albumin 3.1 g/dL (3.5-5.0) L 09/10/16 06:40 Albumin (PEP) 2.0 g/dL (3.8-4.8) L 09/03/16 04:00 Globulin 4.8 gm/dL (2.2-3.9) H 09/10/16 06:40 Albumin/Globulin Ratio 0.6 (1.0-2.1) L 09/10/16 06:40 Wqkwh-8-Ylbzhbjpj 0.5 g/dL (0.2-0.3) H 09/03/16 04:00 Fkktx-4-Unnisiqok 1.2 g/dL (0.5-0.9) H 09/03/16 04:00 Tpcn-0-Qitrphih 0.4 g/dL (0.4-0.6) 09/03/16 04:00 Dwpz-3-Fnkqpxkw 0.6 g/dL (0.2-0.5) H 09/03/16 04:00 Gamma Globulins 1.9 g/dL (0.8-1.7) H 09/03/16 04:00 Abnorm Protein Band 1 TEST NOT PERFORMED 09/03/16 04:00 Abnorm Protein Band 2 TEST NOT PERFORMED 09/03/16 04:00 Abnorm Protein Band 3 TEST NOT PERFORMED 09/03/16 04:00 Vitamin B12 410 pg/mL (239-931) 09/03/16 04:00 Folate 5.8 ng/mL 09/03/16 04:00 Arterial Blood Potassium 4.5 mmol/L (3.6-5.2) 09/01/16 14:53 Urine Opiates Screen Positive (NEGATIVE) H 09/02/16 17:26 Urine Methadone Screen Negative (NEGATIVE) 09/02/16 17:26 Ur Barbiturates Screen Negative (NEGATIVE) 09/02/16 17:26 Ur Phencyclidine Scrn Negative (NEGATIVE) 09/02/16 17:26 Ur Amphetamines Screen Negative (NEGATIVE) 09/02/16 17:26 U Benzodiazepines Scrn Positive (NEGATIVE) H 09/02/16 17:26 U Oth Cocaine Metabols Negative (NEGATIVE) 09/02/16 17:26 U Cannabinoids Screen Negative (NEGATIVE) 09/02/16 17:26 ELIZABETH & SPEP Interp See note (()) 09/03/16 04:00 Serum Immunofixation See note (()) 09/03/16 04:00 Tot Rico/Lambda Ratio 1.97 (1.29-2.55) 09/03/16 04:00 Rico Light Chain Anal 526 mg/dL (176-443) H 09/03/16 04:00 Lambda Light Chain Anal 267 mg/dL (91-240) H 09/03/16 04:00 Influenza Typ A,B (EIA) Negative for flu a/b (NEGATIVE) 09/01/16 15:50 - Hospital Course Hospital Course: Patient seen and examined at the bedside with attending this morning. SHe has no acute complaints, reports eating well, passing stool, and denies SOB/chest pain. Patient was admitted for COPD exacerbation and suspected pneumonia. During her stay she was evaluated by Heme/Onc (Dr Palafox) for anemia which was determined to be secondary to chronic disease and is currently stable. Dr Davalos ( Pulmonary) involved in care due to COPD exacerbation and pneumonia. Dr Davalos also performed a bronchoscopy because despite being on antibiotics imaging showed worsening pattern and he found significant mucous plugging and took biopsies as well. She is stable and at baseline for her pulmonary condition. Dr Roe (ID) evaluated patient for possible TB which was ruled out and then patient found to have MRSA pneumonia for which she will undergo a total of 21days with Zyvox. At this time patient is [facility]. Discharge Exam - Head Exam Head Exam: ATRAUMATIC, NORMOCEPHALIC - Eye Exam Eye Exam: EOMI, PERRL - ENT Exam ENT Exam: Mucous Membranes Dry, Normal Exam - Respiratory Exam Respiratory Exam: Decreased Breath Sounds (mild decrease but improving), Rhonchi (minimal ), NORMAL BREATHING PATTERN. absent: Rales - Cardiovascular Exam Cardiovascular Exam: REGULAR RHYTHM. absent: JVD - GI/Abdominal Exam GI & Abdominal Exam: Normal Bowel Sounds, Soft. absent: Tenderness - Extremities Exam Extremities exam: normal capillary refill, pedal pulses present - Neurological Exam Neurological exam: Alert - Psychiatric Exam Psychiatric exam: Normal Affect, Normal Mood - Skin Skin Exam: Normal Color, Warm Discharge Plan - Discharge Medications Prescriptions: Linezolid 600 mg in D5W 300 ml [Zyvox IV] 600 mg IV Q12 #18 bag - Follow Up Plan Condition: GUARDED Disposition: TRANSF TO SNF Additional Instructions: patient cleared for discharge to [facility] under Referrals: Juan Fitzgerald MD [Staff Provider] - Corey Davalos MD [Staff Provider] - <Juan Fitzgerald - Last Filed: 09/20/16 17:11> Provider - Provider Date of Admission: 09/01/16 14:42 Attending physician: Juan Fitzgerald MD Hospital Course - Lab Results Lab Results: Micro Results 09/12/16 11:30 Other: Please Indicate Mycobacterial Culture - Preliminary 09/04/16 18:00 Other: Please Indicate Mycobacterial Culture - Preliminary 09/12/16 11:30 Body Fluid - Bronchial Washing Gram Stain - Final 09/12/16 11:30 Body Fluid - Bronchial Washing Body Fluid Culture - Final Klebsiella Pneumoniae Ssp Pneu Staphylococcus Aureus 09/12/16 11:30 Body Fluid - Bronchial Washing Fungal Culture - Preliminary 09/06/16 14:35 Other: Please Indicate Mycobacterial Culture - Preliminary 09/05/16 19:49 Other: Please Indicate Mycobacterial Culture - Preliminary 09/01/16 18:20 Blood Blood Culture - Final NO GROWTH AFTER 5 DAYS 09/01/16 18:20 Blood Gram Stain - Final TEST NOT PERFORMED 09/02/16 15:00 Sputum Induced Gram Stain - Final 09/02/16 15:00 Sputum Induced Sputum Culture - Final Methicillin Resistant S Aureus 09/02/16 17:26 Urine Urine Culture - Final No Growth (<1,000 CFU/ML) Most Recent Lab Values WBC 14.1 K/uL (4.8-10.8) H 09/13/16 06:30 RBC 3.62 Mil/uL (3.80-5.20) L 09/13/16 06:30 Hgb 10.2 g/dL (12.0-16.0) L 09/13/16 06:30 Hct 30.2 % (34.0-47.0) L 09/13/16 06:30 MCV 83.4 fl (81.0-99.0) 09/13/16 06:30 MCH 28.1 pg (27.0-31.0) 09/13/16 06:30 MCHC 33.7 g/dL (33.0-37.0) 09/13/16 06:30 RDW 18.0 % (11.5-14.5) H 09/13/16 06:30 Plt Count 278 K/uL (130-400) D 09/13/16 06:30 MPV 6.2 fl (7.2-11.7) L 09/13/16 06:30 Neut % (Auto) 84.5 % (50.0-75.0) H 09/13/16 06:30 Lymph % (Auto) 11.6 % (20.0-40.0) L 09/13/16 06:30 [place] % (Auto) 3.7 % (0.0-10.0) 09/13/16 06:30 Eos % (Auto) 0.1 % (0.0-4.0) 09/13/16 06:30 Baso % (Auto) 0.1 % (0.0-2.0) 09/13/16 06:30 Neut # 11.9 K/uL (1.8-7.0) H 09/13/16 06:30 Lymph # 1.6 K/uL (1.0-4.3) 09/13/16 06:30 [place] # 0.5 K/uL (0.0-0.8) 09/13/16 06:30 Eos # 0.0 K/uL (0.0-0.7) 09/13/16 06:30 Baso # 0.0 K/uL (0.0-0.2) 09/13/16 06:30 Total Counted Cancelled 09/02/16 05:30 Neutrophils % (Manual) 77 % (42-75) H 09/05/16 04:45 Band Neutrophils % 2 % (0-2) 09/05/16 04:45 Lymphocytes % (Manual) 9 % (20-50) L 09/05/16 04:45 Reactive Lymphs % 2 % (0-0) H 09/05/16 04:45 Monocytes % (Manual) 8 % (0-10) 09/05/16 04:45 Eosinophils % (Manual) Cancelled 09/02/16 05:30 Basophils % (Manual) Cancelled 09/02/16 05:30 Metamyelocytes % 2 % (0-0) H 09/05/16 04:45 Myelocytes % Cancelled 09/02/16 05:30 Promyelocytes % Cancelled 09/02/16 05:30 Blast Cells % Cancelled 09/02/16 05:30 Plasma Cell % (Manual) Cancelled 09/02/16 05:30 Nucleated RBC % Cancelled 09/02/16 05:30 Hypersegmented Polys Present 09/01/16 13:15 Smudge Cells Cancelled 09/02/16 05:30 Toxic Granulation Present 09/05/16 04:45 Dohle Bodies Cancelled 09/02/16 05:30 Bekah Rods Cancelled 09/02/16 05:30 Platelet Estimate Increased (NORMAL) H 09/05/16 04:45 Plt Clumps, EDTA Present 09/05/16 04:45 Large Platelets Present 09/01/16 13:15 Giant Platelets Present 09/01/16 13:15 RBC Morphology Cancelled 09/02/16 05:30 Polychromasia Cancelled 09/02/16 05:30 Hypochromasia (manual) Slight 09/05/16 04:45 Poikilocytosis (manual Cancelled 09/02/16 05:30 Basophilic Stippling Cancelled 09/02/16 05:30 Anisocytosis (manual) Slight 09/05/16 04:45 Microcytosis (manual) Cancelled 09/02/16 05:30 Macrocytosis (manual) Cancelled 09/02/16 05:30 Spherocytes Cancelled 09/02/16 05:30 Sickle Cells Cancelled 09/02/16 05:30 Target Cells Cancelled 09/02/16 05:30 Tear Drop Cells Cancelled 09/02/16 05:30 Ovalocytes Cancelled 09/02/16 05:30 Stomatocytes Cancelled 09/02/16 05:30 Helmet Cells Cancelled 09/02/16 05:30 [place] Bodies Cancelled 09/02/16 05:30 [place] Cells Cancelled 09/02/16 05:30 Acanthocytes (Spur) Cancelled 09/02/16 05:30 Rouleaux Cancelled 09/02/16 05:30 Schistocytes Cancelled 09/02/16 05:30 Retic Count 1.0 % (0.5-1.5) 09/03/16 04:00 PT 10.4 SECONDS (9.6-11.2) 09/10/16 06:40 INR 1.00 (0.92-1.08) 09/10/16 06:40 APTT 24.2 SECONDS (23.3-32.5) 09/10/16 06:40 pCO2 47 mm/Hg (35-45) H 09/01/16 14:53 pO2 65 mm/Hg (80-100) L 09/01/16 14:53 HCO3 27.5 mmol/L (21-28) 09/01/16 14:53 ABG pH 7.40 (7.35-7.45) 09/01/16 14:53 ABG Total CO2 30.5 mmol/L (22-28) H 09/01/16 14:53 ABG O2 Saturation 97.0 % (95-98) 09/01/16 14:53 ABG Base Excess 3.5 mmol/L (-2.0-3.0) H 09/01/16 14:53 Rashaun Test Yes 09/01/16 14:53 ABG Potassium 4.5 mmol/L (3.6-5.2) 09/01/16 14:53 A-a O2 Difference 76.0 mm/Hg 09/01/16 14:53 Sodium 132.0 mmol/L (132-148) 09/01/16 14:53 Chloride 101.0 mmol/L (98-107) 09/01/16 14:53 Glucose 296 mg/dL (65-105) H 09/01/16 14:53 Lactate 1.6 mmol/L (0.7-2.1) 09/01/16 14:53 FiO2 28.0 % 09/01/16 14:53 Sodium 139 mmol/l (132-148) 09/13/16 06:30 Potassium 4.1 MMOL/L (3.6-5.0) 09/13/16 06:30 Chloride 97 mmol/L (98-107) L 09/13/16 06:30 Carbon Dioxide 29 mmol/L (22-30) 09/13/16 06:30 Anion Gap 17 (10-20) 09/13/16 06:30 BUN 23 mg/dl (7-17) H 09/13/16 06:30 Creatinine 0.7 mg/dL (0.7-1.2) 09/13/16 06:30 Est GFR ( Amer) > 60 09/13/16 06:30 Est GFR (Non-Af Amer) > 60 09/13/16 06:30 POC Glucose (mg/dL) 170 mg/dL (65-110) H 09/13/16 11:04 Random Glucose 122 mg/dL (65-105) H 09/13/16 06:30 Calcium 9.5 mg/dL (8.4-10.2) 09/13/16 06:30 Ferritin 863.0 ng/mL 09/03/16 04:00 Total Bilirubin 0.5 mg/dl (0.2-1.3) 09/10/16 06:40 AST 80 U/L (14-36) H D 09/10/16 06:40 ALT 76 U/L (9-52) H D 09/10/16 06:40 Alkaline Phosphatase 283 U/L (38-126) H D 09/10/16 06:40 Total Protein 7.9 G/DL (6.3-8.2) 09/10/16 06:40 Total Protein (PEP) 6.6 g/dL (6.1-8.1) 09/03/16 04:00 Albumin 3.1 g/dL (3.5-5.0) L 09/10/16 06:40 Albumin (PEP) 2.0 g/dL (3.8-4.8) L 09/03/16 04:00 Globulin 4.8 gm/dL (2.2-3.9) H 09/10/16 06:40 Albumin/Globulin Ratio 0.6 (1.0-2.1) L 09/10/16 06:40 [place]-1-Sqcdrjkyw 0.5 g/dL (0.2-0.3) H 09/03/16 04:00 Czueh-1-Ktfdiitka 1.2 g/dL (0.5-0.9) H 09/03/16 04:00 Fwdv-6-Examgvgc 0.4 g/dL (0.4-0.6) 09/03/16 04:00 Aeem-3-Cehzjsal 0.6 g/dL (0.2-0.5) H 09/03/16 04:00 Gamma Globulins 1.9 g/dL (0.8-1.7) H 09/03/16 04:00 Abnorm Protein Band 1 TEST NOT PERFORMED 09/03/16 04:00 Abnorm Protein Band 2 TEST NOT PERFORMED 09/03/16 04:00 Abnorm Protein Band 3 TEST NOT PERFORMED 09/03/16 04:00 Vitamin B12 410 pg/mL (239-931) 09/03/16 04:00 Folate 5.8 ng/mL 09/03/16 04:00 Arterial Blood Potassium 4.5 mmol/L (3.6-5.2) 09/01/16 14:53 Urine Opiates Screen Positive (NEGATIVE) H 09/02/16 17:26 Urine Methadone Screen Negative (NEGATIVE) 09/02/16 17:26 Ur Barbiturates Screen Negative (NEGATIVE) 09/02/16 17:26 Ur Phencyclidine Scrn Negative (NEGATIVE) 09/02/16 17:26 Ur Amphetamines Screen Negative (NEGATIVE) 09/02/16 17:26 U Benzodiazepines Scrn Positive (NEGATIVE) H 09/02/16 17:26 U Oth Cocaine Metabols Negative (NEGATIVE) 09/02/16 17:26 U Cannabinoids Screen Negative (NEGATIVE) 09/02/16 17:26 ELIZABETH & SPEP Interp See note (()) 09/03/16 04:00 Serum Immunofixation See note (()) 09/03/16 04:00 Tot Rico/Lambda Ratio 1.97 (1.29-2.55) 09/03/16 04:00 Rico Light Chain Anal 526 mg/dL (176-443) H 09/03/16 04:00 Lambda Light Chain Anal 267 mg/dL (91-240) H 09/03/16 04:00 Influenza Typ A,B (EIA) Negative for flu a/b (NEGATIVE) 09/01/16 15:50
[2016-09-13] MEDS: Phenol 1.4% Throat Spray MT SCH ×2 (08:49→13:00)
[2016-09-13] MEDS: Pantoprazole 40 mg EC Tab PO SCH (08:49)
[2016-09-13] MEDS: Linezolid 600 mg in D5W 300 ml 600 MG/300 ML BAG IVPB SCH (08:50)
[2016-09-13 08:51] VITALS: PULSE 85
[2016-09-13] MEDS ORDERED: Enoxaparin 40 mg Syringe SC SCH (09:00)
[2016-09-13] MEDS: Oxycodone/Acetaminophen 5/325 mg Tab PO PRN ×2 (09:00→13:25)
--- NOTE | 2016-09-13 09:35 | CP.PCM.PN ---
Subjective - Date & Time of Evaluation Date of Evaluation: 09/13/16 Time of Evaluation: 09:36 - Subjective Subjective: FEELS BETTER SOB IMPROVED Objective - Vital Signs/Intake and Output Vital Signs (last 24 hours): Temp Pulse Resp BP Pulse Ox 98 F 85 18 115/75 95 09/13/16 07:22 09/13/16 08:49 09/13/16 07:22 09/13/16 08:49 09/13/16 07:22 - Medications Medications: Current Medications Al Hydrox/Mg Hydrox/Simethicone (Maalox Plus 30 Ml) 30 ml PO Q6 PRN PRN Reason: Indigestion / Heartburn Albuterol (Ventolin Hfa 90 Mcg/Actuation (8 G)) 1 puff INH Q6 DINO Last Admin: 09/13/16 04:00 Dose: 1 puff Albuterol/Ipratropium (Duoneb 3 Mg/0.5 Mg (3 Ml) Ud) 3 ml INH RQ4 PRN PRN Reason: Shortness of Breath Last Admin: 09/12/16 10:15 Dose: 3 ml Amlodipine Besylate (Norvasc) 10 mg PO DAILY [facility] Last Admin: 09/13/16 08:49 Dose: 10 mg Dextrose (Dextrose 50% Inj) 0 ml IV STAT PRN; Protocol PRN Reason: Hyglycemia Protocol Dextrose (Glutose 15) 0 gm PO ONCE PRN; Protocol PRN Reason: Hypoglycemia Protocol Enoxaparin Sodium (Lovenox) 40 mg SC DAILY DINO PRN Reason: Protocol Last Admin: 09/13/16 08:48 Dose: 40 mg Escitalopram Oxalate (Lexapro) 20 mg PO DAILY [facility] Last Admin: 09/13/16 08:48 Dose: 20 mg Glucagon (Glucagen Diagnostic Kit) 0 mg IM STAT PRN; Protocol PRN Reason: Hypoglycemia Protocol Linezolid (Zyvox 600mg/300ml D5w) 600 mg in 300 mls @ 300 mls/hr IVPB Q12 [facility] Last Admin: 09/13/16 08:50 Dose: 300 mls/hr Insulin Detemir (Levemir) 10 units SC HS [facility] Last Admin: 09/12/16 21:50 Dose: 10 u Insulin Human Regular (Humulin R) 0 units SC ACHS DINO PRN Reason: Protocol Last Admin: 09/13/16 07:20 Dose: Not Given Oxycodone/Acetaminophen (Percocet 5/325 Mg Tab) 1 tab PO Q4 PRN PRN Reason: Pain, moderate (4-7) Stop: 09/14/16 12:25 Last Admin: 09/13/16 09:00 Dose: 1 tab Pantoprazole Sodium (Protonix Ec Tab) 40 mg PO DAILY [facility] Last Admin: 09/13/16 08:49 Dose: 40 mg Phenol/Menthol (Phenaseptic 1.4% Throat [place]) 1 spry MT TID [facility] Last Admin: 09/13/16 08:49 Dose: 1 spr Promethazine HCl/Dextromethorphan (Phenergan Dm Syrup) 5 ml PO Q6 PRN PRN Reason: Cough Last Admin: 09/12/16 13:11 Dose: 5 ml - Labs Labs: 09/13/16 06:30 09/13/16 06:30 PT 10.4 SECONDS (9.6-11.2) 09/10/16 06:40 INR 1.00 (0.92-1.08) 09/10/16 06:40 APTT 24.2 SECONDS (23.3-32.5) 09/10/16 06:40 - Constitutional Appears: Well - Head Exam Head Exam: ATRAUMATIC, NORMAL INSPECTION, NORMOCEPHALIC - Eye Exam Eye Exam: EOMI, Normal appearance, PERRL Pupil Exam: NORMAL ACCOMODATION, PERRL - ENT Exam ENT Exam: Mucous Membranes Moist, Normal Exam - Neck Exam Neck Exam: Full ROM, Normal Inspection. absent: Lymphadenopathy - Respiratory Exam Respiratory Exam: Decreased Breath Sounds, Prolonged Expiratory Phase, NORMAL BREATHING PATTERN - Cardiovascular Exam Cardiovascular Exam: REGULAR RHYTHM, +S1, +S2. absent: Murmur - GI/Abdominal Exam GI & Abdominal Exam: Soft, Normal Bowel Sounds. absent: Tenderness - Rectal Exam Rectal Exam: NORMAL INSPECTION - Extremities Exam Extremities Exam: Full ROM, Normal Capillary Refill, Normal Inspection. absent : Joint Swelling, Pedal Edema - Back Exam Back Exam: NORMAL INSPECTION - Neurological Exam Neurological Exam: Alert, Awake, CN II-XII Intact, Normal Gait, Oriented x3 - Psychiatric Exam Psychiatric exam: Normal Affect, Normal Mood - Skin Skin Exam: Dry, Intact, Normal Color, Warm Assessment and Plan - Assessment and Plan (Free Text) Assessment: PNEUMONIA IMPROVED MUCUS PLUGGING OF AIRWAYS Plan: OK TO D/C TO RESIDENTIAL WITH IV ANTIBIOTIC RX WILL FOLLOW PATH REPORT
== END 2016-09-13 15:26 | DRG 166 ==
LOC: H.ER 12:49 → H.ERHOLD 14:42 → H.TEL 15:53 → H.MEDSURG1 09-10 18:18
PROVIDERS: ADMIT Internal Medicine; ATTEND Internal Medicine
PROC: 02HV33Z Insertion of Infusion Device into Superior Vena Cava, Percutaneous Approach (ICD-10-PCS; principal; 2016-09-10)
PROC: 0BBJ8ZX Excision of Left Lower Lung Lobe, Via Natural or Artificial Opening Endoscopic, Diagnostic (ICD-10-PCS; 2016-09-12)
PROC: 0BB78ZX Excision of Left Main Bronchus, Via Natural or Artificial Opening Endoscopic, Diagnostic (ICD-10-PCS; 2016-09-12)
PROC: 0B978ZX Drainage of Left Main Bronchus, Via Natural or Artificial Opening Endoscopic, Diagnostic (ICD-10-PCS; 2016-09-12)
DX: J44.0 Chronic obstructive pulmonary disease with (acute) lower respiratory infection (principal); J15.212 Pneumonia due to Methicillin resistant Staphylococcus aureus; E87.2 Acidosis; K92.0 Hematemesis; T17.990A Other foreign object in respiratory tract, part unspecified in causing asphyxiation, initial encounter; D63.8 Anemia in other chronic diseases classified elsewhere; R04.2 Hemoptysis; J44.1 Chronic obstructive pulmonary disease with (acute) exacerbation; E11.65 Type 2 diabetes mellitus with hyperglycemia; E78.00 Pure hypercholesterolemia, unspecified; E78.5 Hyperlipidemia, unspecified; I10 Essential (primary) hypertension; J45.909 Unspecified asthma, uncomplicated; Z91.14 Patient's other noncompliance with medication regimen; Z91.19 Patient's noncompliance with other medical treatment and regimen; R91.8 Other nonspecific abnormal finding of lung field; Z72.0 Tobacco use; R10.9 Unspecified abdominal pain; Z88.6 Allergy status to analgesic agent; Z88.1 Allergy status to other antibiotic agents; Z88.0 Allergy status to penicillin; Z88.2 Allergy status to sulfonamides; F41.9 Anxiety disorder, unspecified; F32.9 Major depressive disorder, single episode, unspecified; R77.1 Abnormality of globulin